=== PATIENT | female | born 1980 | race Caucasian/White ===

== ENCOUNTER 2019-08-11 12:37 | Observation (INO) | payer OTHER, SELFPAY ==
[2019-08-11 12:46] VITALS: BP 131/91; PULSE 89; RESP 18; TEMP 36.3; O2SAT 98; BMI 46.3
--- NOTE | 2019-08-11 13:21 | ED_ITS ---
HPI - GI Bleed General Chief complaint: GI Bleed Stated complaint: nausea,diarrhea,fever,fainting spells Time Seen by Provider: 08/11/19 13:13 Source: patient Mode of arrival: Family Vehicle Limitations: no limitations History of Present Illness HPI Narrative: CC: Rectal GI bleeding HPI: The patient is a 39-year-old female who has a history of chronic abdominal pain secondary to endometriosis and a history of depression. The patient states that last night at 10:00 p.m. she developed abdominal pain that she thought was secondary to endometriosis. At 4:00 a.m. in the morning she became intensely nauseous felt febrile and sweaty. She passed out. She does not know how long she was out. He she developed diarrhea. The diarrhea stopped this morning and then recurred again around noon time at which time she decided to look at it and it was bloody with some stool in tissue in it. She absolutely denies that she is bleeding vaginally. She feels extremely tired weak and lethargic for the last 2 weeks she thought that it was all secondary to her depressions. She wants to sleep. Today she has been having continuous lower abdominal cramps. She denies smoking cigarettes per day pain drinking alcohol or using any drugs. Her last menstrual period was July 31. She has had intermittent fever chills and sweats. She denies a history of Crohn's disease ulcerative colitis irritable bowel syndrome diverticulitis peptic ulcer disease pancreatitis hepatitis, TB and HIV. She states that her pain and discomfort is 5/10 in intensity. She has had intermittent shortness of breath with the abdominal c ramps but no cough and no other chest pain. She denies any melena or any urinary symptoms. She denies any vaginal bleeding or discharge. Related Data Home Medications Medication Instructions Recorded Confirmed metformin 500 mg tablet 500 mg PO QPM tab 02/22/19 08/11/19 Centrum 50 1 tab PO DAILY 08/11/19 08/11/19 lamotrigine 200 mg PO QPM 08/11/19 08/11/19 lysine 1 tab PO DAILY 08/11/19 08/11/19 valsartan-hydrochlorothiazide 1 tab PO DAILY 08/11/19 08/11/19 Previous Rx's Medication Instructions Recorded bupropion HCl 300 mg 24 hr tablet, 300 mg PO QAM #30 tab 04/19/19 extended release duloxetine 60 mg capsule,delayed 60 mg PO DAILY #30 cap 04/19/19 release propranolol 20 mg tablet 20 mg PO BID #60 tab 04/19/19 tizanidine 4 mg capsule 4 mg PO BEDTIME PRN #30 cap 04/19/19 Allergies Allergy/AdvReac Type Severity Reaction Status Date / Time amoxicillin Allergy Intermediate rash Verified 06/12/19 14:08 Review of Systems Review of Systems ROS Unobtainable: All systems reviewed & are unremarkable except as noted in HPI and below Patient History Medical History Anxiety (Acute) Depression (Acute) Endometriosis (Acute) Hypertelorism (Acute) Post traumatic stress disorder (PTSD) (Acute) Social History household members: spouse and friend(s) Smoking Status: Never smoker alcohol intake: never Smoking Status: Never smoker Substance Use Type: does not use Exam Narrative Exam Narrative: PHYSICAL EXAM: CONSTITUTIONAL: Awake, Alert, Oriented, Coherent, Cooperative in moderate distress and tearful.. l. HEAD: AT/NC EENT: PERRL, FROM of eyes, no discharge, no nystagmus Oral mucosa is moist and pink, posterior pharynx is without erythema or exudate. NECK: Supple, no obvious JVD, Trachea is midline without stridor, THORAX: No deformity, retractions, subcutaneous air or crepitice. Chest wall is diffusely tender to palpation LUNGS: Clear with symmetrical breath sounds without respiratory distress HEART: Normal heart tones, regular rhythm and rate without murmur. ABDOMEN: Abdomen is soft diffusely tender in all 4 quadrants without specific point tenderness guarding rebound or rigidity. There are no palpable organomegaly. EXTREMITIES: No edema, cyanosis, deformity or tenderness. SKIN: No rash, bruising, petechiae or purpura. NEURO: Awake, alert, oriented, conversive, cranial nerves II-XII are symmetrical and normal, moves all 4 extremities and is ambulatory Initial Vital Signs Initial Vital Signs: Vital Signs Temperature 97.4 F L 08/11/19 12:46 Pulse Rate 89 08/11/19 12:46 Respiratory Rate 18 08/11/19 12:46 Blood Pressure 131/91 H 08/11/19 12:46 Pulse Oximetry 98 08/11/19 12:46 Course Course Course Narrative: 1451 the patient's white blood count of 13.1. Hemoglobin is 13.9, hematocrit 41.7, coags are normal liver function tests are normal electrolytes are normal. CT scan of the abdomen and pelvis reveals no source of pain within the abdomen or pelvis identified. The patient has a normal appendix. There is no evidence of diverticulitis or adnexal inflammation. There is no peritoneal inflammation nor free air. 1516 the rectal exam reveals that the patient has no gross blood on the outside skin. She has no skin tags no hemorrhoids were palpable. She has mucoid stool that was read and pink and tested grossly positive on Hemoccult. I did not palpate any masses.. Her hemoglobin is stable as well as her vital signs. I will call and discuss the patient with Dr. Anglin general surgery and discussed admitting the patient for a colonoscopy. 1526 I discussed the patient with Dr. Coreas who has agreed to perform a colonoscopy. However she is concerned about the syncopal event and believes the patient should be admitted to the hospitalist to evaluate that and make sure she is stable before proceeding with a colonoscopy. I will discuss the patient with Dr. Rodriguez, hospitalist 1542 I discussed the patient with Dr. Rodriguez will be down to evaluate the p atient in admit the patient. The patient will be admitted observation and if necessary rolled over 4 fall admission. I believe the patient's syncope after reviewing her history is probably a vasovagal syncope secondary to her abdominal pain and cramps. Orders Ordered: ED Orders 08/11/19 13:23 CT abdomen pelvis w con Stat 08/11/19 13:25 Complete Blood Count AUTO DIFF Stat Comprehensive Metabolic Panel Stat Lipase Stat Partial Thromboplastin Time Stat Prothrombin Time INR Stat Troponin I Stat Type and Screen Stat Acetaminophen (Tylenol) 650 mg PO Q6HR PRN PRN Reason: Fever/Mild Pain (1-3) Bupropion HCl (Wellbutrin Xl) 300 mg PO DAILY CHAU Duloxetine HCl (Cymbalta) 60 mg PO DAILY CHAU Sodium Chloride (Normal Saline 0.9%) 1,000 mls @ 100 mls/hr IV CONT CHAU Last Admin: 08/11/19 19:39 Dose: 100 mls/hr Documented by: JULIENNE Influenza Virus Vaccine (Flu Vaccine) 0.5 ml IM .ONCE ONE Stop: 08/12/19 12:01 Lamotrigine (Lamictal) 200 mg PO QPM COUNT INCLUDES THE [facility] Last Admin: 08/11/19 18:13 Dose: 200 mg Documented by: JULIENNE Naloxone HCl (Narcan) 0.2 mg IV Q2MIN PRN PRN Reason: Opiate Reversal Propranolol HCl (Inderal) 20 mg PO BID COUNT INCLUDES THE [facility] Last Admin: 08/11/19 21:20 Dose: 20 mg Documented by: JULIENNE Tizanidine HCl (Zanaflex) 4 mg PO BEDTIME PRN PRN Reason: muscle spasticity Discontinued Medications Sodium Chloride (Normal Saline 0.9%) 1,000 mls @ 1,000 mls/hr IV BOLUS ONE Stop: 08/11/19 17:56 Last Admin: 08/11/19 18:09 Dose: 1,000 mls/hr Documented by: JULIENNE Influenza Virus Vaccine (Flu Vaccine) 0.5 ml IM .ONCE ONE Stop: 08/11/19 17:52 Morphine Sulfate (Morphine Sulfate) 4 mg IV NOW ONE Stop: 08/11/19 13:24 Last Admin: 08/11/19 13:45 Dose: Not Given Documented by: GM Ondansetron HCl (Zofran) 4 mg IV NOW ONE Stop: 08/11/19 13:24 Last Admin: 08/11/19 13:45 Dose: 4 mg Documented by: GM Vital Signs Vital signs: Vital Signs - 8 hr 08/11/19 16:20 Pulse Rate 68 Respiratory Rate 18 Blood Pressure [Left Arm] 121/74 MDM - GI Bleed Lab Data Attestation: I reviewed the patient's lab results. Result diagrams: 08/11/19 13:25 08/11/19 13:25 Labs: Lab Results 08/11/19 08/11/19 08/11/19 Range/Units 13:00 13:25 13:25 WBC 13.1 H (4.5-11.0) X10^3/uL RBC 4.80 (4.0-5.2) X10^6/uL Hgb 13.9 (12.0-16.0) g/dL Hct 41.7 (36-46) % MCV 86.8 (80-100) fL MCH 28.9 (26-34) PG MCHC 33.3 (30-36) % RDW 13.0 (11.6-14.8) % Plt Count 407 H (150-400) X10^3/uL Neut % (Auto) 82.3 H (50-75) % Lymph % (Auto) 11.6 L (25-40) % [place] % (Auto) 5.4 (3-14) % Eos % (Auto) 0.3 L (2-4) % Baso % (Auto) 0.4 (0-2) % Neut # (Auto) 05291 H (8396-2077) /uL Lymph # (Auto) 1500 (4263-9176) /uL [place] # (Auto) 700 (0-900) /uL Eos # (Auto) 0 (0-450) /uL Baso # (Auto) 100 (0-100) /uL PT 11.9 (10.1-12.7) SECONDS INR 1.0 (0.9-1.3) APTT 32 (26.4-36.2) SECONDS Sodium (137-145) mmol/L Potassium (3.4-5.1) mmol/L Chloride (98-107) mmol/L Carbon Dioxide (22-32) mmol/L BUN (7-17) mg/dL Creatinine (0.52-1.04) mg/dL Estimated GFR (>60) mL/min BUN/Creatinine Ratio (6-22) Glucose (70-100) mg/dL Calcium (8.4-10.2) mg/dL Total Bilirubin (0.2-1.3) mg/dL AST (14-36) IU/L ALT (<35) IU/L Alkaline Phosphatase (38-126) U/L Troponin I (0.01-0.034) ng/mL Total Protein (6.3-8.2) g/dL Albumin (3.5-5.0) g/dL Globulin (1.7-4.1) g/dL Albumin/Globulin Ratio (1.0-2.8) Lipase (23-300) U/L Urine RBC 0-1/hpf (0-5/HPF) Urine WBC 1-5/hpf (0-5/HPF) Ur Squamous Epith Cells 1-5 /hpf (0-5/HPF) Ur Transition Epith Cell 1-5/hpf (0-5/HPF) Amorphous Sediment 1+ Urine Bacteria Few (2-10) H (None) Hyaline Casts 10-30/lpf (None) Ur Culture Indicated? Specimen cultured Blood Type Antibody Screen 08/11/19 08/11/19 08/11/19 Range/Units 13:25 13:25 13:25 WBC (4.5-11.0) X10^3/uL RBC (4.0-5.2) X10^6/uL Hgb (12.0-16.0) g/dL Hct (36-46) % MCV (80-100) fL MCH (26-34) PG MCHC (30-36) % RDW (11.6-14.8) % Plt Count (150-400) X10^3/uL Neut % (Auto) (50-75) % Lymph % (Auto) (25-40) % [place] % (Auto) (3-14) % Eos % (Auto) (2-4) % Baso % (Auto) (0-2) % Neut # (Auto) (5979-9870) /uL Lymph # (Auto) (8980-9970) /uL [place] # (Auto) (0-900) /uL Eos # (Auto) (0-450) /uL Baso # (Auto) (0-100) /uL PT (10.1-12.7) SECONDS INR (0.9-1.3) APTT (26.4-36.2) SECONDS Sodium 138 (137-145) mmol/L Potassium 3.7 (3.4-5.1) mmol/L Chloride 99 (98-107) mmol/L Carbon Dioxide 24 (22-32) mmol/L BUN 16 (7-17) mg/dL Creatinine 0.70 (0.52-1.04) mg/dL Estimated GFR > 60.0 (>60) mL/min BUN/Creatinine Ratio 22.9 H (6-22) Glucose 143 H (70-100) mg/dL Calcium 9.9 (8.4-10.2) mg/dL Total Bilirubin 0.6 (0.2-1.3) mg/dL AST 24 (14-36) IU/L ALT 19 (<35) IU/L Alkaline Phosphatase 67 (38-126) U/L Troponin I < 0.012 (0.01-0.034) ng/mL Total Protein 8.4 H (6.3-8.2) g/dL Albumin 5.1 H (3.5-5.0) g/dL Globulin 3.3 (1.7-4.1) g/dL Albumin/Globulin Ratio 1.5 (1.0-2.8) Lipase 51 (23-300) U/L Urine RBC (0-5/HPF) Urine WBC (0-5/HPF) Ur Squamous Epith Cells (0-5/HPF) Ur Transition Epith Cell (0-5/HPF) Amorphous Sediment Urine Bacteria (None) Hyaline Casts (None) Ur Culture Indicated? Blood Type A Positive Antibody Screen Negative Point of Care Testing Test Results Negative Urine Dip Bedside Urine Glucose Negative Bedside Urine Bilirubin ++ 2 Bedside Urine Ketone + 15 Urine Specific [place] 1.030 Bedside Urine Occult Blood - Negative Bedside Urine pH 6.0 Bedside Urine Protein ++ 100 Bedside Urine Urobilinogen +/- 1mg Bedside Urine Nitrite + Positive Bedside Urine Leukocytes + 70 Esterase ECG Data Attestation: I personally reviewed and interpreted this ECG as follows: Interpretation: Patient's EKG obtained on August 11 at 12:5 6:38 a.m. reveals a normal sinus rhythm with a ventricular rate of 79. Intervals are normal. QRS is slightly prolonged at 101 milliseconds. [place] is normal. The patient has an occasional PVC. There are no Q-waves visible. The patient has nonspecific ST segment changes. T-waves are flat in lead III. T-waves are inverted in V1. Otherwise EKG appears normal. There are no ST or T-wave changes to suggest ischemia or injury. Discharge Plan Departure Patient Disposition: Admitted as Observation Clinical Impression: Acute lower GI bleeding Syncope Qualifiers: Syncope type: unspecified Qualified Code(s): R55 - Syncope and collapse Discharge Date/Time: 08/11/19 17:34 Admit Date/Time: 08/11/19 16:29 Admit Provider: Everett Rodriguez
--- NOTE | 2019-08-11 13:23 | DI.CT.S_ITS ---
PROCEDURE: CT ABDOMEN PELVIS W CON INDICATIONS: diffuse abdominal pain and cramps with bleeding and diarrhea TECHNIQUE: After the administration of intravenous contrast, 5 mm thick sections acquired from the diaphragm to the symphysis. 5 mm coronal and sagittal reformats were acquired. For radiation dose reduction, the following was used: automated exposure control, adjustment of mA and/or kV according to patient size. COMPARISON: None. FINDINGS: Image quality: Excellent. ABDOMEN: Lung bases: Lung bases are clear. Heart size is normal. Solid organs: Liver is normal in size and enhancement. Gallbladder appears normal. Biliary system is non dilated. Pancreas enhances normally. Spleen is normal in size and enhancement. No adrenal nodules. Kidneys demonstrate normal size and enhancement, without hydronephrosis. Peritoneum and bowel: Bowel loops demonstrate normal wall thickness and caliber. No free fluid or air. Nodes and vessels: No retroperitoneal or mesenteric adenopathy by size criteria. Aorta and inferior vena cava are normal in size. Miscellaneous: No ventral hernias. PELVIS: Genitourinary: Bladder wall thickness is normal. Miscellaneous: No inguinal hernias or adenopathy. A normal appendix is found at the right lower quadrant. Bones: No suspicious bony lesions. No vertebral body compression fractures. IMPRESSION: Source of pain within the pelvis is not identified. Normal appendix found. No sign of diverticulitis or adnexal inflammation. Throughout the abdomen and pelvis no peritoneal inflammation or free fluid is found Dictated by: Juaquin Mclain M.D. on 08/11/2019 at 14:36 Approved by: Juaquin Mclain M.D. on 08/11/2019 at 14:36
[2019-08-11 13:35] LABS: Add Manual Diff / Slide Review NO; Basophils Absolute Auto 100 /uL (0-100); Basophils Percent Auto 0.4 % (0-2); Eosinophils Absolute Auto 0 /uL (0-450); Eosinophils Percent Auto 0.3 % (2-4); Hematocrit 41.7 % (36-46); Hemoglobin 13.9 g/dL (12.0-16.0); Lymphocytes Absolute Auto 1500 /uL (1100-4500); Lymphocytes Percent Auto 11.6 % (25-40); Mean Corpuscular HGB Conc 33.3 % (30-36); Mean Corpuscular Hemoglobin 28.9 PG (26-34); Mean Corpuscular Volume 86.8 fL (80-100); Monocytes Absolute Auto 700 /uL (0-900); Monocytes Percent Auto 5.4 % (3-14); Neutrophils Absolute Auto 10800 /uL (1500-7000); Neutrophils Percent Auto 82.3 % (50-75); Platelet Count 407 X10^3/uL (150-400); White Blood Cell Count 13.1 X10^3/uL (4.5-11.0)
[2019-08-11 13:42] LABS: Prothrombin Time 11.9 SECONDS (10.1-12.7)
[2019-08-11 13:45] LABS: PTT Partial Thromboplastin Tim 32 SECONDS (26.4-36.2)
[2019-08-11] MEDS: ONDANSETRON 4 MG/2 ML INJ IV (13:45)
[2019-08-11] MEDS: MORPHINE 4 MG/ML INJ (13:45)
[2019-08-11 13:47] LABS: Alanine Aminotransferase 19 IU/L (<35); Albumin 5.1 g/dL (3.5-5.0); Albumin Globulin Ratio 1.5 (1.0-2.8); Alkaline Phosphatase 67 U/L (38-126); Aspartate Aminotransferase 24 IU/L (14-36); BUN Creatinine Ratio 22.9 (6-22); Bilirubin Total 0.6 mg/dL (0.2-1.3); Blood Urea Nitrogen 16 mg/dL (7-17); Calcium 9.9 mg/dL (8.4-10.2); Carbon Dioxide 24 mmol/L (22-32); Chloride 99 mmol/L (98-107); Estimated Glomerular Filt Rate > 60.0 mL/min (>60); Globulin 3.3 g/dL (1.7-4.1); Glucose 143 mg/dL (70-100); HEMOLYSIS < 15 (0-50); Lipase 51 U/L (23-300); Potassium 3.7 mmol/L (3.4-5.1); Sodium 138 mmol/L (137-145); Total Protein 8.4 g/dL (6.3-8.2)
[2019-08-11 14:00] VITALS: BP 136/79; PULSE 68; RESP 18; O2SAT 99
[2019-08-11 14:05] LABS: Amorphous Sediment Urine 1+; Bacteria Urine Few (2-10); Culture Indicated Urine Specimen Cultured; Hyaline Casts Urine 10-30/LPF; RBC Urine 0-1/HPF (0-5/HPF); Squamous Epithelial Cell Urine 1-5 /HPF (0-5/HPF); Transitional Epi Cells Urine 1-5/HPF (0-5/HPF); WBC Urine 1-5/HPF (0-5/HPF)
[2019-08-11 16:17] LABS: Troponin I < 0.012 ng/mL (0.01-0.034)
[2019-08-11 16:20] VITALS: BP 121/74; PULSE 68; RESP 18
--- NOTE | 2019-08-11 17:01 | PM.HP.1 ---
History of Present Illness History of Present Illness Date Patient Seen: 08/11/19 Time Patient Seen: 16:00 Chief complaint: nausea,diarrhea,fever,fainting spells Narrative: Patient is a 39-year-old female with history of depression, anxiety who presented to emergency department after syncopal episode associated with diarrhea and rectal bleeding. Patient states around 10:00 p.m. last night she started having abdominal pain which she attributed to her usual endometriosis discomfort. Then at 4:00 a.m. she awoke with diarrhea and increase in abdominal pain. She also felt feverish, sweaty and dizzy. She felt like she was almost going to fall over while sitting on the toilet. She went to the hallway to get some Pepto-Bismol and fainted. She found herself on the floor and was briefly disoriented and did feel extremely dizzy when tried to stand up. She then went to bed and woke up around 12:00 p.m. again with abdominal pain and diarrhea. This time she looked in the toilet and noticed that it looked very bloody and mucousy which she describes similar as to what she would get with her periods. She has also had severe nausea without vomiting. She reports history of hemorrhoids and irritable bowel syndrome. She has family history of colon polyps in mom and maybe dad. No family history of colon CA. Review of system includes chronic fatigue symptoms but more tired in the last 2 weeks, chronic dizziness, headaches. [facility] and [facility]. On ER she was afebrile, normotensive and not tachycardic. WBC 13.1 mildly elevated, hemoglobin 13.9, hematocrit 41.7, platelets 407. Normal lytes, BUN and creatinine. A CT scan of abdomen and pelvis showed no abnormalities. Dr. Connolly was called from the ER and recommended patient admitted for possible colonoscopy. Patient denies antibiotic use in the past few months and has had no sick contacts. Patient History Medical History (Updated 08/11/19 @ 17:09 by Everett Rodriguez MD) Anxiety (Acute) Depression (Acute) Endometriosis (Acute) Hypertelorism (Acute) Post traumatic stress disorder (PTSD) (Acute) Family & Social History Safety & Behavioral: Feels Safe in Current Yes Environment Been Physically Hurt or No Threatened By a Person Tobacco & Substance use: Smoking Status Never smoker Substance Use Type does not use Meds Home Medications and Allergies Home Medications Medication Instructions Recorded Confirmed Type metformin 500 mg tablet 500 mg PO QPM tab 02/22/19 08/11/19 History bupropion HCl 300 mg 24 hr tablet, 300 mg PO QAM #30 tab 04/19/19 08/11/19 Rx extended release duloxetine 60 mg capsule,delayed 60 mg PO DAILY #30 cap 04/19/19 08/11/19 Rx release propranolol 20 mg tablet 20 mg PO BID #60 tab 04/19/19 08/11/19 Rx tizanidine 4 mg capsule 4 mg PO BEDTIME PRN #30 cap 04/19/19 08/11/19 Rx Centrum 50 1 tab PO DAILY 08/11/19 08/11/19 History lamotrigine 200 mg PO QPM 08/11/19 08/11/19 History lysine 1 tab PO DAILY 08/11/19 08/11/19 History valsartan-hydrochlorothiazide 1 tab PO DAILY 08/11/19 08/11/19 History Allergies Allergy/AdvReac Type Severity Reaction Status Date / Time amoxicillin Allergy Intermediate rash Verified 06/12/19 14:08 Review of Systems Review of Systems ROS: Yes All systems reviewed with the patient and are negative except as otherwise documented Exam Vital Signs (past 8 hours): - 08/11/19 12:46 08/11/19 14:00 08/11/19 16:20 Temperature 97.4 F L Pulse Rate 89 68 68 Respiratory Rate 18 18 18 Blood Pressure 131/91 H Blood Pressure [Left Arm] 136/79 121/74 Pulse Oximetry 98 99 Oxygen Delivery Method Room Air Narrative Exam Narrative: GENERAL: Alert pleasant female cooperative and does not appear in acute distress. HEENT: Pupils equal and reactive, conjunctiva pink Dry mucosa Neck: Supple no lymphadenopathy Lungs: Clear to auscultation Heart: Normal S1 and S2, regular rate and rhythm, no murmur Abdomen: Obese, bowel sounds present, soft and tender across lower abdomen Extremities: No edema Neurological: Fully oriented, nonfocal Skin: Warm, dry, no rash Objective Labs Result Diagrams: 08/11/19 13:25 08/11/19 13:25 Labs: Laboratory Results - last 24 hr 08/11/19 08/11/19 08/11/19 13:00 13:25 13:25 WBC 13.1 H RBC 4.80 Hgb 13.9 Hct 41.7 MCV 86.8 MCH 28.9 MCHC 33.3 RDW 13.0 Plt Count 407 H Neut % (Auto) 82.3 H Lymph % (Auto) 11.6 L [place] % (Auto) 5.4 Eos % (Auto) 0.3 L Baso % (Auto) 0.4 Neut # (Auto) 90828 H Lymph # (Auto) 1500 [place] # (Auto) 700 Eos # (Auto) 0 Baso # (Auto) 100 PT 11.9 INR 1.0 APTT 32 Sodium Potassium Chloride Carbon Dioxide BUN Creatinine Estimated GFR BUN/Creatinine Ratio Glucose Calcium Total Bilirubin AST ALT Alkaline Phosphatase Troponin I Total Protein Albumin Globulin Albumin/Globulin Ratio Lipase Urine RBC 0-1/hpf Urine WBC 1-5/hpf Ur Squamous Epith Cells 1-5 /hpf Ur Transition Epith Cell 1-5/hpf Amorphous Sediment 1+ Urine Bacteria Few (2-10) H Hyaline Casts 10-30/lpf Ur Culture Indicated? Specimen cultured Blood Type Antibody Screen 08/11/19 08/11/19 08/11/19 13:25 13:25 13:25 WBC RBC Hgb Hct MCV MCH MCHC RDW Plt Count Neut % (Auto) Lymph % (Auto) [place] % (Auto) Eos % (Auto) Baso % (Auto) Neut # (Auto) Lymph # (Auto) [place] # (Auto) Eos # (Auto) Baso # (Auto) PT INR APTT Sodium 138 Potassium 3.7 Chloride 99 Carbon Dioxide 24 BUN 16 Creatinine 0.70 Estimated GFR > 60.0 BUN/Creatinine Ratio 22.9 H Glucose 143 H Calcium 9.9 Total Bilirubin 0.6 AST 24 ALT 19 Alkaline Phosphatase 67 Troponin I < 0.012 Total Protein 8.4 H Albumin 5.1 H Globulin 3.3 Albumin/Globulin Ratio 1.5 Lipase 51 Urine RBC Urine WBC Ur Squamous Epith Cells Ur Transition Epith Cell Amorphous Sediment Urine Bacteria Hyaline Casts Ur Culture Indicated? Blood Type A Positive Antibody Screen Negative Assessment & Plan Assessment & Plan narrative: This is a 39-year-old female who presents with acute bloody mucousy diarrhea and episode of syncope. 1. Bloody diarrhea, present on admission -acute presentation most likely infectious, less likely initial presentation of inflammatory bowel disease, AVM, diverticulosis -labs significant for mild leukocytosis, normal H&H, CT scan unremarkable -obtain GI panel film array, stool C diff PCR, stool culture -clear liquid diet as tolerated -IV hydration, NS 1000 mL bolus then 100 mL per hours continuous -IV Zofran 4 mg q.4 hours as needed nausea/vomiting -appreciate surgical consult by Dr. Connolly, we discussed case and agree this is most likely acute infectious and colonoscopy not needed at this time 2. Syncope -likely vasovagal or orthostatic in nature -check orthostatics now and q.a.m. 3. Hypertension -normotensive, awaiting orthostatics -hold patient's valsartan HCT due to acute illness and syncope -also hold metformin, I need to check with patient if it is being given for PCOS or diabetes 4. Behavioral health -continue patient's psychiatric medications Patient is admitted to observation services with expectation of less than 2 midnight stay.
--- NOTE | 2019-08-11 17:39 | P.CONS_ITS ---
History of Present Illness Consult details Date Patient Seen: 08/11/19 Time Patient Seen: 17:39 Chief complaint: nausea,diarrhea,fever,fainting spells Reason for consult: rectal bleeding, abdominal pain Requesting provider: Oren Sanchez Narrative: This is a 39-year-old woman with h/o morbid obesity BMI 46.3, depression, anxiety, fibromyalgia, and IBS. She has chronic dizziness, fatigue and nausea which she says has been worse in the past two weeks. She says she doesn't get out of bed very much. She came into the ER today with c/o abdominal pain that started last night around 10PM, associated with diarrhea, syncope, and a bloody bowel movement. She says that around 10:00 p.m. she started having abdominal pain which she attributed to her usual endometriosis discomfort. Then at 4:00 a.m. she awoke with diarrhea and increased abdominal pain. At that point she felt feverish, sweaty and dizzy. She felt like she was almost going to fall over while sitting on the toilet. She went to the hallway to get some Pepto-Bismol and fainted. She found herself on the floor. She say she doesn't know how long she was down. When she awoke she was briefly disoriented and did feel extremely dizzy when tried to stand up. She then went to bed and woke up around 12:00 p.m. again with abdominal pain and diarrhea. This time she looked in the toilet and noticed that it looked very bloody and mucousy which she carrie cribes similar as to what she would get with her periods. She has also had severe nausea without vomiting. She reports history of hemorrhoids and irritable bowel syndrome. She has family history of colon polyps in mom and maybe dad. No family history of colon CA. She had a CT scan in the ER that was essentially normal in terms of the colon. No signs of edema or colitis. She has a low-grade white count 13.1. ROS: Review of system includes chronic fatigue symptoms but more tired in the last 2 weeks, chronic dizziness, headaches. [facility], anxiety and PTSD. Thirteen system review is otherwise negative other than as mentioned below and in HPI. PE: GENERAL: Alert, comfortable. Morbidly obese. Appears stated age. Answers questions promptly and appropriately. Vital signs noted. HENT: Normocephalic, atraumatic. Hearing intact. Oral mucosa is pink and moist. EYES: Conjunctiva pink, sclera white, no periorbital swelling. CARDIOVASCULAR: Regular rate. No pedal edema. RESPIRATORY: Non-tachypneic, breathing comfortably on room air. GASTROINTESTINAL: Abdomen soft, obese, non-distended, tender to palpation in bilateral lower quadrants, no peritoneal signs Perianal: Skin irritation consistent with diarrhea; no gross blood, no stool staining FRANK: No gross blood, no tenderness, no masses GENITALURINARY: No flank tenderness. MUSCULOSKELETAL: Equal tone and mass bilaterally. SKIN: Warm, dry, soft, appropriate color for ethnicity. No other lesions, rashes, or wounds. NEURO: Alert and Oriented X 3. No gross sensory deficits, or cognitive issues. PSYCH: Appropriate affect and mood. Meds Home Medications and Allergies Home Medications Medication Instructions Recorded Confirmed Type metformin 500 mg tablet 500 mg PO QPM tab 02/22/19 08/11/19 History bupropion HCl 300 mg 24 hr tablet, 300 mg PO QAM #30 tab 04/19/19 08/11/19 Rx extended release duloxetine 60 mg capsule,delayed 60 mg PO DAILY #30 cap 04/19/19 08/11/19 Rx release propranolol 20 mg tablet 20 mg PO BID #60 tab 04/19/19 08/11/19 Rx tizanidine 4 mg capsule 4 mg PO BEDTIME PRN #30 cap 04/19/19 08/11/19 Rx Centrum 50 1 tab PO DAILY 08/11/19 08/11/19 History lamotrigine 200 mg PO QPM 08/11/19 08/11/19 History lysine 1 tab PO DAILY 08/11/19 08/11/19 History valsartan-hydrochlorothiazide 1 tab PO DAILY 08/11/19 08/11/19 History Allergies Allergy/AdvReac Type Severity Reaction Status Date / Time amoxicillin Allergy Intermediate rash Verified 06/12/19 14:08 Exam Vital Signs (past 8 hours): - 08/11/19 12:46 08/11/19 14:00 08/11/19 16:20 Temperature 97.4 F L Pulse Rate 89 68 68 Respiratory Rate 18 18 18 Blood Pressure 131/91 H Blood Pressure [Left Arm] 136/79 121/74 Pulse Oximetry 98 99 Oxygen Delivery Method Room Air Objective Labs Result Diagrams: 08/11/19 13:25 08/11/19 13:25 Labs: Laboratory Results - last 24 hr 08/11/19 08/11/19 08/11/19 13:00 13:25 13:25 WBC 13.1 H RBC 4.80 Hgb 13.9 Hct 41.7 MCV 86.8 MCH 28.9 MCHC 33.3 RDW 13.0 Plt Count 407 H Neut % (Auto) 82.3 H Lymph % (Auto) 11.6 L [place] % (Auto) 5.4 Eos % (Auto) 0.3 L Baso % (Auto) 0.4 Neut # (Auto) 79529 H Lymph # (Auto) 1500 [place] # (Auto) 700 Eos # (Auto) 0 Baso # (Auto) 100 PT 11.9 INR 1.0 APTT 32 Sodium Potassium Chloride Carbon Dioxide BUN Creatinine Estimated GFR BUN/Creatinine Ratio Glucose Calcium Total Bilirubin AST ALT Alkaline Phosphatase Troponin I Total Protein Albumin Globulin Albumin/Globulin Ratio Lipase Urine RBC 0-1/hpf Urine WBC 1-5/hpf Ur Squamous Epith Cells 1-5 /hpf Ur Transition Epith Cell 1-5/hpf Amorphous Sediment 1+ Urine Bacteria Few (2-10) H Hyaline Casts 10-30/lpf Ur Culture Indicated? Specimen cultured Blood Type Antibody Screen 08/11/19 08/11/19 08/11/19 13:25 13:25 13:25 WBC RBC Hgb Hct MCV MCH MCHC RDW Plt Count Neut % (Auto) Lymph % (Auto) [place] % (Auto) Eos % (Auto) Baso % (Auto) Neut # (Auto) Lymph # (Auto) [place] # (Auto) Eos # (Auto) Baso # (Auto) PT INR APTT Sodium 138 Potassium 3.7 Chloride 99 Carbon Dioxide 24 BUN 16 Creatinine 0.70 Estimated GFR > 60.0 BUN/Creatinine Ratio 22.9 H Glucose 143 H Calcium 9.9 Total Bilirubin 0.6 AST 24 ALT 19 Alkaline Phosphatase 67 Troponin I < 0.012 Total Protein 8.4 H Albumin 5.1 H Globulin 3.3 Albumin/Globulin Ratio 1.5 Lipase 51 Urine RBC Urine WBC Ur Squamous Epith Cells Ur Transition Epith Cell Amorphous Sediment Urine Bacteria Hyaline Casts Ur Culture Indicated? Blood Type A Positive Antibody Screen Negative Assessment & Plan Assessment and plan (1) Syncope: Qualifiers: Syncope type: unspecified Qualified Code(s): R55 - Syncope and collapse Current visit: Yes Status: Acute (2) Acute lower GI bleeding: Current visit: Yes Status: Acute (3) Morbid obesity with BMI of 40.0-44.9, adult: Current visit: Yes Status: Acute (4) IBS (irritable bowel syndrome): Current visit: Yes Status: Acute (5) Acute abdominal pain: Current visit: Yes Status: Acute (6) Diarrhea: Current visit: Yes Status: Acute Assessment & Plan narrative: This is a 39-year-old woman with longstanding fibromyalgia, fatigue, dizziness, nausea, and IBS. Last night she started having severe abdominal pain associated with syncope, diarrhea, and rectal bleed ing. Her hemoglobin is 14, her CT scan is unremarkable, and there is no gross blood on her rectal exam. She has not had another bloody bowel movement since the 1 that she had 6 hours ago. Is my thought that she is probably not bleeding significantly given her hemoglobin, and the lack of ongoing rectal bleeding. It is possible in the setting of a GI bug causing diarrhea, she had some irritation of internal hemorrhoids causing a self-limited bleed. Her overall picture is not consistent with inflammatory bowel disease, ischemia, or infectious colitis. She is going to be admitted to the medicine service. I spoke with Dr. Rodriguez, and he will contact us if he feels that she is able to tolerate a bowel prep and if she is an appropriate candidate for an inpatient colonoscopy. My thought is she probably needs conservative management of her symptoms, and consideration for an outpatient colonoscopy once she is feeling better. 45 minutes were spent face to face with the patient. More than 50% of the time was spent in counseling and co-ordination of care regarding her medical history, symptoms, exam findings, and expected hospital course, and follow-up. An additional 45 minutes were spent reviewing the patient's chart, discussing her case with Dr. Sanchez and Dr. Rodriguez. At this point we are not actively following the patient, but please call if an inpatient colonoscopy is indicated. Time Spent With Patient Time with patient: Greater than 35 minutes
[2019-08-11 17:41] VITALS: BMI 46.3
[2019-08-11 18:00] VITALS: BP 119/92; PULSE 71; RESP 20; TEMP 36.7; O2SAT 95
[2019-08-11] MEDS: SODIUM CHLORIDE 0.9% 1,000 ML 1000 ML IV (18:09)
[2019-08-11] MEDS: lamoTRIgine 100 MG TABLET 200 MG PO (18:13)
--- NOTE | 2019-08-11 18:35 | PC.NURSE ---
Addendum entered by Sarah Felix R.N. 08/11/19 22:50: Pt states preference for influenza vaccine prior to discharge. In house pharmacist was made aware. No stools this evening. Addendum entered by Sarah Felix R.N. 08/11/19 20:04: Pt standby assistance to commode to void. No stool. Admits to some lightheadedness when up but states this is nothing new or unusual for pt. Able to manage own toileting. BL calf scd's in place. Reports abdomen is tender, but taking clear liquids without difficulty. Spouse at bedside. Original Note: Pt to room 214 from [facility] awake, alert, conversant. Able to transfer from wheelchair to bed. Accompanied by spouse and numerous members of quaker family. Pt states abdominal pain 2/10 at this time. States feels able to rest. Clear liquids provided as ordered and normal saline bolus infusing as ordered to right ac site without difficulty.
[2019-08-11 18:45] VITALS: BP 108/67; BP 110/67; BP 114/72; PULSE 66; PULSE 81; PULSE 89
[2019-08-11] MEDS: SODIUM CHLORIDE 0.9% 1,000 ML 100 ML IV (19:39)
[2019-08-11] MEDS: PROPRANOLOL 10 MG TABLET 20 MG PO (21:20)
[2019-08-12 00:20] VITALS: BP 119/70; PULSE 63; RESP 16; TEMP 36.7; O2SAT 96
[2019-08-12 02:50] LABS: Adenovirus F 40/41 Not Detected (Not Detect); Astrovirus Not Detected (Not Detect); Campylobacter Not Detected (Not Detect); Clostridium difficile toxin AB Not Detected (Not Detect); Cryptosporidium Not Detected (Not Detect); Cyclospora cayetanensis Not Detected (Not Detect); Entamoeba histolytica Not Detected (Not Detect); Enteroaggregative E.coli Not Detected (Not Detect); Enteropathogenic E.coli Not Detected (Not Detect); Enterotoxigenic E.coli It/st Not Detected (Not Detect); Giardia lamblia Not Detected (Not Detect); Norovirus GI/GII Not Detected (Not Detect); Plesiomonsa shigelloides Not Detected (Not Detect); Rotavirus A Not Detected (Not Detect); Salmonella Not Detected (Not Detect); Sapovirus Not Detected (Not Detect); Shiga-like toxin-prod E.coli Not Detected (Not Detect); Shigella/Enteroinvasive E.coli Not Detected (Not Detect); Vibrio Not Detected (Not Detect); Vibrio cholerae Not Detected (Not Detect); Yersinia enterocolitica Not Detected (Not Detect)
[2019-08-12 04:30] VITALS: BP 118/70; BP 125/68; BP 139/88; PULSE 67; PULSE 72; PULSE 81; RESP 16; TEMP 36.8; O2SAT 96
[2019-08-12] MEDS: SODIUM CHLORIDE 0.9% 1,000 ML 100 ML IV (05:25)
[2019-08-12 05:38] LABS: Add Manual Diff / Slide Review NO; Basophils Absolute Auto 0 /uL (0-100); Basophils Percent Auto 0.4 % (0-2); Eosinophils Absolute Auto 100 /uL (0-450); Eosinophils Percent Auto 1.2 % (2-4); Hematocrit 36.4 % (36-46); Hemoglobin 12.3 g/dL (12.0-16.0); Lymphocytes Absolute Auto 2800 /uL (1100-4500); Lymphocytes Percent Auto 25.9 % (25-40); Mean Corpuscular HGB Conc 33.9 % (30-36); Mean Corpuscular Hemoglobin 29.4 PG (26-34); Mean Corpuscular Volume 86.6 fL (80-100); Monocytes Absolute Auto 900 /uL (0-900); Monocytes Percent Auto 8.3 % (3-14); Neutrophils Absolute Auto 6900 /uL (1500-7000); Neutrophils Percent Auto 64.2 % (50-75); Platelet Count 327 X10^3/uL (150-400); Red Cell Distribution Width 13.4 % (11.6-14.8); White Blood Cell Count 10.8 X10^3/uL (4.5-11.0)
[2019-08-12 05:44] LABS: BUN Creatinine Ratio 11.4 (6-22); Blood Urea Nitrogen 8 mg/dL (7-17); Calcium 8.9 mg/dL (8.4-10.2); Carbon Dioxide 30 mmol/L (22-32); Chloride 100 mmol/L (98-107); Estimated Glomerular Filt Rate > 60.0 mL/min (>60); Glucose 108 mg/dL (70-100); HEMOLYSIS < 15 (0-50); Potassium 3.8 mmol/L (3.4-5.1); Sodium 137 mmol/L (137-145)
[2019-08-12 08:00] VITALS: BP 137/82; PULSE 64; RESP 14; TEMP 36.6; O2SAT 95
[2019-08-12] MEDS: buPROPion XL 150 MG TAB 300 MG PO (09:23)
[2019-08-12] MEDS: PROPRANOLOL 10 MG TABLET 20 MG PO (09:23)
[2019-08-12] MEDS: DULOXETINE 30 MG CAPSULE 60 MG PO (09:23)
[2019-08-12 10:28] VITALS: BP 132/66; BP 134/68; BP 143/74; PULSE 67; PULSE 73; PULSE 74
--- NOTE | 2019-08-12 12:59 | P.DS_ITS ---
History of Present Illness History of Present Illness Chief complaint: nausea,diarrhea,fever,fainting spells Narrative: Patient is a 39-year-old female with history of depression, anxiety who presented to emergency department after syncopal episode associated with diarrhea and rectal bleeding. Patient states around 10:00 p.m. last night she started having abdominal pain which she attributed to her usual endometriosis discomfort. Then at 4:00 a.m. she awoke with diarrhea and increase in abdominal pain. She also felt feverish, sweaty and dizzy. She felt like she was almost going to fall over while sitting on the toilet. She went to the hallway to get some Pepto-Bismol and fainted. She found herself on the floor and was briefly disoriented and did feel extremely dizzy when tried to stand up. She then went to bed and woke up around 12:00 p.m. again with abdominal pain and diarrhea. This time she looked in the toilet and noticed that it looked very bloody and mucousy which she describes similar as to what she would get with her periods. She has also had severe nausea without vomiting. She reports history of hemorrhoids and irritable bowel syndrome. She has family history of colon polyps in mom and maybe dad. No family history of colon CA. Review of system includes chronic fatigue symptoms but more tired in the last 2 weeks, chronic dizziness, headaches. [facility], [facility] and [facility]. On ER she was afebrile, normotensive and not tachycardic. WBC 13.1 mildly elevated, hemoglobin 13.9, hematocrit 41.7, platelets 407. Normal lytes, BUN and creatinine. A CT scan of abdomen and pelvis showed no abnormalities. Dr. Connolly was called from the ER and recommended patient admitted for possible colonoscopy. Patient denies antibiotic use in the past few months and has had no sick contacts. Discharge Providers Provider Date of admission: 08/11/19 16:29 Discharge Date: 08/12/19 Discharge provider: Everett Rodriguez MD Summary Hospital Course Discharge Diagnosis: 1. Acute hemorrhagic gastroenteritis, likely infectious 2. Vasovagal syncope Hospital Course: Patient admitted after syncope associated with acute onset of bloody diarrhea. She was not orthostatic. This syncope is very likely vasovagal associated with abdominal cramping and diarrhea. She is still passing small amounts of blood per rectum but last hemoglobin this morning 12.3 is only slightly down from admission. She is not orthostatic and she remains afebrile. This is still most likely infectious diarrhea causing lower GI bleed verses acute onset of IBD. She did have abdomen pelvis CT scan which did not show any thickening in her bowels. Patient is discharged home in stable condition. She will follow-up with PCP. She may need colonoscopy if bloody diarrhea is persistent beyond a few weeks. Status at Discharge Cognitive/behavioral status at discharge: oriented Functional status at discharge: independent ambulation Overall status at discharge: patient is progressing back to baseline Exam Vital Signs (past 8 hours): - 08/12/19 08:00 08/12/19 10:28 Temperature 97.9 F Pulse Rate 64 Pulse Rate [Orthostatic Lying] 67 Pulse Rate [Orthostatic Sitting] 73 Pulse Rate [Orthostatic Standing] 74 Respiratory Rate 14 Blood Pressure 137/82 Blood Pressure [Orthostatic Lying] 132/66 Blood Pressure [Orthostatic Sitting] 134/68 Blood Pressure [Orthostatic Standing] 143/74 H Pulse Oximetry 95 Oxygen Delivery Method Room Air Oxygen Flow Rate 0 Objective Labs Result Diagrams: 08/12/19 05:20 08/12/19 05:20 Labs: Laboratory Results - last 24 hr 08/11/19 08/11/19 08/11/19 13:00 13:25 13:25 WBC 13.1 H RBC 4.80 Hgb 13.9 Hct 41.7 MCV 86.8 MCH 28.9 MCHC 33.3 RDW 13.0 Plt Count 407 H Neut % (Auto) 82.3 H Lymph % (Auto) 11.6 L [place] % (Auto) 5.4 Eos % (Auto) 0.3 L Baso % (Auto) 0.4 Neut # (Auto) 41842 H Lymph # (Auto) 1500 [place] # (Auto) 700 Eos # (Auto) 0 Baso # (Auto) 100 PT 11.9 INR 1.0 APTT 32 Sodium Potassium Chloride Carbon Dioxide BUN Creatinine Estimated GFR BUN/Creatinine Ratio Glucose Calcium Total Bilirubin AST ALT Alkaline Phosphatase Troponin I Total Protein Albumin Globulin Albumin/Globulin Ratio Lipase Urine RBC 0-1/hpf Urine WBC 1-5/hpf Ur Squamous Epith Cells 1-5 /hpf Ur Transition Epith Cell 1-5/hpf Amorphous Sediment 1+ Urine Bacteria Few (2-10) H Hyaline Casts 10-30/lpf Ur Culture Indicated? Specimen cultured Stl C. cayetanensis PCR Stool Rotavirus (PCR) Stool Adenovirus (PCR) Stool Astrovirus (PCR) Stool Cryptosporidium PCR Stl E.coli Shiga Tox PCR St Sh/Enteroin Ecoli PCR Stool E coli O157 PCR Stl Enterotoxigenic E PCR Stool EPEC (PCR) Stl E. histolytica PCR Stool Giardia Lamblia PCR Stool Sapovirus (PCR) Stl P. shigelloides PCR St Y.enterocolitica PCR Stool Vibrio (PCR) Stl Vibrio cholerae PCR Stl Enteroaggr Ecoli PCR Stl Norovirus GI/GII PCR Campylobacter (PCR) C. difficile Tox (PCR) Salmonella (PCR) Blood Type Antibody Screen 08/11/19 08/11/19 08/11/19 13:25 13:25 13:25 WBC RBC Hgb Hct MCV MCH MCHC RDW Plt Count Neut % (Auto) Lymph % (Auto) [place] % (Auto) Eos % (Auto) Baso % (Auto) Neut # (Auto) Lymph # (Auto) [place] # (Auto) Eos # (Auto) Baso # (Auto) PT INR APTT Sodium 138 Potassium 3.7 Chloride 99 Carbon Dioxide 24 BUN 16 Creatinine 0.70 Estimated GFR > 60.0 BUN/Creatinine Ratio 22.9 H Glucose 143 H Calcium 9.9 Total Bilirubin 0.6 AST 24 ALT 19 Alkaline Phosphatase 67 Troponin I < 0.012 Total Protein 8.4 H Albumin 5.1 H Globulin 3.3 Albumin/Globulin Ratio 1.5 Lipase 51 Urine RBC Urine WBC Ur Squamous Epith Cells Ur Transition Epith Cell Amorphous Sediment Urine Bacteria Hyaline Casts Ur Culture Indicated? Stl C. cayetanensis PCR Stool Rotavirus (PCR) Stool Adenovirus (PCR) Stool Astrovirus (PCR) Stool Cryptosporidium PCR Stl E.coli Shiga Tox PCR St Sh/Enteroin Ecoli PCR Stool E coli O157 PCR Stl Enterotoxigenic E PCR Stool EPEC (PCR) Stl E. histolytica PCR Stool Giardia Lamblia PCR Stool Sapovirus (PCR) Stl P. shigelloides PCR St Y.enterocolitica PCR Stool Vibrio (PCR) Stl Vibrio cholerae PCR Stl Enteroaggr Ecoli PCR Stl Norovirus GI/GII PCR Campylobacter (PCR) C. difficile Tox (PCR) Salmonella (PCR) Blood Type A Positive Antibody Screen Negative 0208/12/19 08/12/19 01:15 05:20 05:20 WBC 10.8 RBC 4.20 Hgb 12.3 Hct 36.4 MCV 86.6 MCH 29.4 MCHC 33.9 RDW 13.4 Plt Count 327 Neut % (Auto) 64.2 Lymph % (Auto) 25.9 [place] % (Auto) 8.3 Eos % (Auto) 1.2 L Baso % (Auto) 0.4 Neut # (Auto) 6900 Lymph # (Auto) 2800 [place] # (Auto) 900 Eos # (Auto) 100 Baso # (Auto) 0 PT INR APTT Sodium 137 Potassium 3.8 Chloride 100 Carbon Dioxide 30 BUN 8 Creatinine 0.70 Estimated GFR > 60.0 BUN/Creatinine Ratio 11.4 Glucose 108 H Calcium 8.9 Total Bilirubin AST ALT Alkaline Phosphatase Troponin I Total Protein Albumin Globulin Albumin/Globulin Ratio Lipase Urine RBC Urine WBC Ur Squamous Epith Cells Ur Transition Epith Cell Amorphous Sediment Urine Bacteria Hyaline Casts Ur Culture Indicated? Stl C. cayetanensis PCR Not detected Stool Rotavirus (PCR) Not detected Stool Adenovirus (PCR) Not detected Stool Astrovirus (PCR) Not detected Stool Cryptosporidium PCR Not detected Stl E.coli Shiga Tox PCR Not detected St Sh/Enteroin Ecoli PCR Not detected Stool E coli O157 PCR Not Reportable Stl Enterotoxigenic E PCR Not detected Stool EPEC (PCR) Not detected Stl E. histolytica PCR Not detected Stool Giardia Lamblia PCR Not detected Stool Sapovirus (PCR) Not detected Stl P. shigelloides PCR Not detected St Y.enterocolitica PCR Not detected Stool Vibrio (PCR) Not detected Stl Vibrio cholerae PCR Not detected Stl Enteroaggr Ecoli PCR Not detected Stl Norovirus GI/GII PCR Not detected Campylobacter (PCR) Not detected C. difficile Tox (PCR) Not detected Salmonella (PCR) Not detected Blood Type Antibody Screen Discharge Plan Discharge Plan Patient Disposition: Home Discharge orders & Medications Prescriptions: Continued bupropion HCl 300 mg tablet extended release 24 hr 300 mg PO QAM Qty: 30 RF: 5 duloxetine 60 mg capsule,delayed release(DR/EC) 60 mg PO DAILY Qty: 30 RF: 5 propranolol 20 mg tablet 20 mg PO BID Qty: 60 RF: 5 tizanidine 4 mg capsule 4 mg PO BEDTIME PRN (Reason: muscle spasticity) Qty: 30 RF: 5 metformin 500 mg tablet 500 mg PO QPM RF: 0 valsartan-hydrochlorothiazide 80-12.5 mg Tablet 1 tab PO DAILY RF: 0 Centrum 50 1 tab PO DAILY RF: 0 lysine 1 tab PO DAILY RF: 0 lamotrigine 100 mg tablet 200 mg PO QPM RF: 0 Diet/Activity/Treatments Diet comment: BRAT diet Visit Report/Discharge Packet Instructions: Viral Gastroenteritis, [place] Diet Discharge Data Attending Provider: Everett Rodriguez Admit Date/Time: 08/11/19 16:29 Quality VTE Deep Vein Thrombosis/Pulmonary Embolism Present on Admission: No
--- NOTE | 2019-08-12 13:28 | CM.DANOTE ---
DCP Brief Assessment Note Patient is a 39 year old female who was admitted on 08/11/19 for Nausea/fever/diarrhea. Pt has [facility] for insurance and her PCP is not listed. EMR was reviewed. Per MD, pt with hx of morbid obesity, irritable bowel syndrom, depression and was determined not to be anemic or orthostatic after admit. Surgeon Consult completed and recommending possible colonoscopy as an outpt and no further surgical intervention needed at this time. Per MD, pt now medically stable to d/c home with assist and no identified barriers to discharge. Per RN, pt has been cooperative and agreeable with d/c home and no concerns noted. SW met bedside briefly with pt who is agreeable with d/c plan of home today and does not anticipate any SW needs or d/c coordination needs. plans to provide transport. Plan: Patient to d/c home today via POV and no SW needs at this time. BRAXTON Hussein
--- NOTE | 2019-08-12 13:59 | PC.NURSE ---
Discharge Pt states she has pain in LUQ of abd notified. Denies nausea and declines pain medication. Pt states she is ready to go home. present. PIV removed prior to d/c. D/c instructions provided to pt and her . Aware to f/u with her PCP. Aware to contact PCP with any additional questions or concerns. Pt states she is taking all belongings home with her. Refused w/c, stating that caused too many bumps and shakes to her abd making her feel worse. Walked out with [employer] escort. left in car with .
== END 2019-08-12 11:50 | disposition home or self-care (01) ==
LOC: ED 15:42 → AC 16:31
PROVIDERS: Emergency Medicine; Admitting Provider Internal Medicine; Emergency Provider Emergency Medicine; Visit Provider Internal Medicine
DX: K52.89 Other specified noninfective gastroenteritis and colitis (principal); R10.9 Unspecified abdominal pain; R19.7 Diarrhea, unspecified; K92.1 Melena; R55 Syncope and collapse; F32.9 Major depressive disorder, single episode, unspecified; F41.9 Anxiety disorder, unspecified; I10 Essential (primary) hypertension
CPT/HCPCS: 36415; 74177; 80048; 80053; 81003; 81015; 81025; 83690; 84484; 85025; 85610; 85730; 86850; 86900; 86901; 87086; 87507; 93005; 96361; 96374; 96375; 99284; 99285; G0378; J2270; J2405; Q9967

== ENCOUNTER 2019-12-15 16:46 | Emergency (ER) | payer OTHER, SELFPAY ==
[2019-10-05 15:15] VITALS: BMI 46.3
[2019-12-15 16:49] VITALS: BP 149/103; PULSE 79; RESP 18; TEMP 36.6; O2SAT 97; BMI 44.6
--- NOTE | 2019-12-15 18:51 | DI.US.S_ITS ---
PROCEDURE: US PELVIC COMPLETE INDICATIONS: ABDOMEN PAIN, ENDOMETRIOSIS, HISTORY OF CYSTS TECHNIQUE: Real-time scanning was performed of the pelvic organs, with image documentation. Additional endovaginal scanning was necessary due to incomplete visualization of the adnexal and endometrial structures by transabdominal scanning. COMPARISON: [facility], CT, CT ABDOMEN PELVIS W CON, 08/11/2019, 13:55. FINDINGS: Transabdominal scanning: Limited scanning through the kidneys shows no hydronephrosis. No pathologic free abdominal or pelvic fluid. Endovaginal scanning: Uterus: Uterus is retroverted and normal in size at 4.9 x 4.7 x 3.5 cm. No uterine mass. The endometrium measures 8 mm in combined thickness. Ovaries: Within normal limits. Arterial and venous flow seen in both ovaries. Right ovary measures 3.8 x 2.4 x 1.4 cm. Left ovary measures 3.6 x 3.5 x 2.1 cm. IMPRESSION: 1. Sonographic appearance of the ovaries is within normal limits. No significant ovarian cysts. No torsion demonstrated. 2. No free fluid. 3. Uterus and endometrium are within normal limits. Dictated by: Neymar Sosa M.D. on 12/15/2019 at 20:35 Approved by: Neymar Sosa M.D. on 12/15/2019 at 20:38
[2019-12-15 19:07] LABS: Add Manual Diff / Slide Review NO; Basophils Absolute Auto 0 /uL (0-100); Basophils Percent Auto 0.4 % (0-2); Eosinophils Absolute Auto 100 /uL (0-450); Eosinophils Percent Auto 1.6 % (2-4); Hematocrit 37.8 % (36-46); Hemoglobin 12.9 g/dL (12.0-16.0); Lymphocytes Absolute Auto 2500 /uL (1100-4500); Lymphocytes Percent Auto 30.6 % (25-40); Mean Corpuscular Hemoglobin 29.5 PG (26-34); Mean Corpuscular Volume 86.7 fL (80-100); Monocytes Absolute Auto 600 /uL (0-900); Monocytes Percent Auto 7.9 % (3-14); Neutrophils Absolute Auto 4800 /uL (1500-7000); Neutrophils Percent Auto 59.5 % (50-75); Platelet Count 375 X10^3/uL (150-400); Red Blood Cell Count 4.36 X10^6/uL (4.0-5.2); Red Cell Distribution Width 13.4 % (11.6-14.8); White Blood Cell Count 8.1 X10^3/uL (4.5-11.0)
[2019-12-15 19:18] LABS: Alanine Aminotransferase 16 IU/L (<35); Albumin 4.4 g/dL (3.5-5.0); Albumin Globulin Ratio 1.5 (1.0-2.8); Alkaline Phosphatase 52 U/L (38-126); Amylase 67 U/L (30-110); Aspartate Aminotransferase 20 IU/L (14-36); BUN Creatinine Ratio 23.7 (6-22); Bilirubin Total 0.4 mg/dL (0.2-1.3); Blood Urea Nitrogen 14 mg/dL (7-17); Calcium 9.6 mg/dL (8.4-10.2); Carbon Dioxide 27 mmol/L (22-32); Chloride 101 mmol/L (98-107); Estimated Glomerular Filt Rate > 60.0 mL/min (>60); Glucose 102 mg/dL (70-100); HEMOLYSIS < 15 (0-50); Lipase 80 U/L (23-300); Potassium 3.8 mmol/L (3.4-5.1); Sodium 135 mmol/L (137-145); Total Protein 7.4 g/dL (6.3-8.2)
--- NOTE | 2019-12-15 19:21 | ED_ITS ---
HPI - Abdominal Pain <CHELLY Park - Last Filed: 12/15/19 21:13> General Chief Complaint: Abdominal Pain Stated Complaint: severe pelvic pain x2 wks Time Seen by Provider: 12/15/19 18:18 Source: patient Mode of arrival: Ambulatory Limitations: no limitations History of Present Illness HPI narrative: The patient is a 39-year-old female nonsmoker with history of endometriosis as well as bilateral ovarian cysts who presents with a cheer complaint of pelvic pain for the past 2 weeks. She states that her ovaries hurt. She states that is not possible at this point time. She thought she had a UTI for a few days. She states that both of her ovaries have caused excruciating pain, worse in the past 2 weeks. She has been having pelvic pain since she miscarried last year. She denies any abnormal nausea vomiting or diarrhea. She does have history of IBS as well as morbid obesity with BMI 44.6., but complains of some hot flashes. She states that her last menstrual cycle was approximately 2 weeks ago. Denies any abdominal surgery history other than when she was diagnosed with endometriosis. She denies any possibility of sexually transmitted infections. Related Data Home Medications Medication Instructions Recorded Confirmed metformin 500 mg tablet 500 mg PO QPM tab 02/22/19 11/06/19 Centrum 50 1 tab PO DAILY 08/11/19 11/06/19 lysine 1 tab PO DAILY 08/11/19 11/06/19 Previous Rx's Medication Instructions Recorded bupropion HCl 300 mg 24 hr tablet, 300 mg PO QAM #30 tab 10/09/19 extended release duloxetine 60 mg capsule,delayed 60 mg PO BID #60 cap 10/09/19 release lamotrigine 100 mg tablet 200 mg PO QPM #60 tab 10/09/19 propranolol 20 mg tablet 20 mg PO BID #60 tab 10/09/19 tizanidine 4 mg capsule 4 mg PO BEDTIME PRN #30 cap 10/09/19 ketorolac 10 mg PO TID #10 tab 12/15/19 Allergies Allergy/AdvReac Type Severity Reaction Status Date / Time amoxicillin Allergy Intermediate rash Verified 12/15/19 16:49 Review of Systems <CHELLY Park - Last Filed: 12/15/19 21:13> Review of Systems Narrative: GENERAL: Denies chills, fatigue, malaise, fever, sweats. HEENT: Denies sinus pain, ear pain, sore throat, difficulty swallowing, dizziness. RESPIRATORY: Denies dyspnea, cough, wheezing, hemoptysis, sputum. CARDIOVASCULAR: Denies chest pain, palpitations, orthopnea, edema, GASTROINTESTINAL: Denies nausea, vomiting, abdominal pain, diarrhea, constipation, melena. : See HPI MUSCULOSKELETAL: denies weakness, joint pain, or bony pain SKIN: Denies rash, skin lesions, or other NEUROLOGIC: Denies weakness, headache, numbness, change in speech, confusion, seizures, incoordination. PSYCHIATRIC: No concerning psychosocial issues. 12 point review of systems is negative except for those stated above Patient History <CHELLY Park - Last Filed: 12/15/19 21:13> Medical History (Updated 12/15/19 @ 21:09 by CHELLY Park) Anxiety (Acute) Depression (Acute) Endometriosis (Acute) Hypertelorism (Acute) Post traumatic stress disorder (PTSD) (Acute) Social History household members: spouse and friend(s) Smoking Status: Never smoker alcohol intake: never Smoking Status: Never smoker Substance Use Type: does not use Exam <CHELLY Park - Last Filed: 12/15/19 21:13> Narrative Exam Narrative: GENERAL: Morbidly obese female lying on stretcher in no acute distress HEAD: Atraumatic. Normocephalic. No temporal or scalp tenderness. EYES: Pupils equal round and reactive. Extraocular motions intact. No scleral icterus. No injection or drainage. ENT: Nose without bleeding, purulent drainage or septal hematoma. Throat without erythema, tonsillar hypertrophy or exudate. Uvula midline. Airway patent. NECK: Trachea midline. No JVD or lymphadenopathy. Supple, nontender, no meningeal signs. CARDIOVASCULAR: Regular rate and rhythm without murmurs, gallops, or rubs. RESPIRATORY: Clear to auscultation. Breath sounds equal bilaterally. No wheezes, rales, or rhonchi. GASTROINTESTINAL: Abdomen soft, non-tender, nondistended. No hepato- splenomegaly, or palpable masses. No guarding. EXTREMITIES: No clubbing, cyanosis, or edema. No joint tenderness, effusion, or edema noted. BACK: Nontender without deformity or crepitance. No flank tenderness. NEURO: AOx3. SKIN: No rash or erythema. Initial Vital Signs Initial Vital Signs: Vital Signs Temperature 97.8 F 12/15/19 16:49 Pulse Rate 79 12/15/19 16:49 Respiratory Rate 18 12/15/19 16:49 Blood Pressure 149/103 H 12/15/19 16:49 Pulse Oximetry 97 12/15/19 16:49 <Yovany Helton DO - Last Filed: 12/15/19 23:02> Initial Vital Signs Initial Vital Signs: Vital Signs Temperature 97.8 F 12/15/19 16:49 Pulse Rate 79 12/15/19 16:49 Respiratory Rate 18 12/15/19 16:49 Blood Pressure 149/103 H 12/15/19 16:49 Pulse Oximetry 97 12/15/19 16:49 Course <ZBIGNIEW ParkBC - Last Filed: 12/15/19 21:13> Orders Ordered: ED Orders 12/15/19 18:51 US pelvic complete Stat 12/15/19 18:58 Amylase Stat Complete Blood Count AUTO DIFF Stat Comprehensive Metabolic Panel Stat Lipase Stat 12/15/19 19:40 Urine Microscopic Stat Discontinued Medications Ketorolac Tromethamine (Toradol) 30 mg IV NOW ONE Stop: 12/15/19 20:22 Last Admin: 12/15/19 20:30 Dose: 30 mg Documented by: ARTHUR Ketorolac Tromethamine (Toradol 10mg Prepack) 1 bottle MISC SEEINSTR ONE Stop: 12/15/19 21:07 Last Admin: 12/15/19 21:16 Dose: 1 bottle Documented by: ARTHUR Vital Signs Vital signs: Vital Signs - 8 hr 12/15/19 16:49 12/15/19 20:34 Temperature 97.8 F Pulse Rate 79 77 Respiratory Rate 18 Blood Pressure 149/103 H Blood Pressure [Left Arm] 108/66 Pulse Oximetry 97 99 <DO Zac Sylvester Last Filed: 12/15/19 23:02> Orders Ordered: ED Orders 12/15/19 18:51 US pelvic complete Stat 12/15/19 18:58 Amylase Stat Complete Blood Count AUTO DIFF Stat Comprehensive Metabolic Panel Stat Lipase Stat 12/15/19 19:40 Urine Microscopic Stat Discontinued Medications Ketorolac Tromethamine (Toradol) 30 mg IV NOW ONE Stop: 12/15/19 20:22 Last Admin: 12/15/19 20:30 Dose: 30 mg Documented by: ARTHUR Ketorolac Tromethamine (Toradol 10mg Prepack) 1 bottle MISC SEEINSTR ONE Stop: 12/15/19 21:07 Last Admin: 12/15/19 21:16 Dose: 1 bottle Documented by: ARTHUR Vital Signs Vital signs: Vital Signs - 8 hr 12/15/19 16:49 12/15/19 20:34 Temperature 97.8 F Pulse Rate 79 77 Respiratory Rate 18 Blood Pressure 149/103 H Blood Pressure [Left Arm] 108/66 Pulse Oximetry 97 99 MDM - Abdominal Pain <CHELLY Park - Last Filed: 12/15/19 21:13> Lab Data Result diagrams: 12/15/19 18:58 12/15/19 18:58 Labs: Lab Results 12/15/19 12/15/19 12/15/19 Range/Units 18:58 18:58 19:40 WBC 8.1 (4.5-11.0) X10^3/uL RBC 4.36 (4.0-5.2) X10^6/uL Hgb 12.9 (12.0-16.0) g/dL Hct 37.8 (36-46) % MCV 86.7 (80-100) fL MCH 29.5 (26-34) PG MCHC 34.0 (30-36) % RDW 13.4 (11.6-14.8) % Plt Count 375 (150-400) X10^3/uL Neut % (Auto) 59.5 (50-75) % Lymph % (Auto) 30.6 (25-40) % [place] % (Auto) 7.9 (3-14) % Eos % (Auto) 1.6 L (2-4) % Baso % (Auto) 0.4 (0-2) % Neut # (Auto) 4800 (7102-8649) /uL Lymph # (Auto) 2500 (6326-8451) /uL [place] # (Auto) 600 (0-900) /uL Eos # (Auto) 100 (0-450) /uL Baso # (Auto) 0 (0-100) /uL Sodium 135 L (137-145) mmol/L Potassium 3.8 (3.4-5.1) mmol/L Chloride 101 (98-107) mmol/L Carbon Dioxide 27 (22-32) mmol/L BUN 14 (7-17) mg/dL Creatinine 0.59 (0.52-1.04) mg/dL Estimated GFR > 60.0 (>60) mL/min BUN/Creatinine Ratio 23.7 H (6-22) Glucose 102 H (70-100) mg/dL Calcium 9.6 (8.4-10.2) mg/dL Total Bilirubin 0.4 (0.2-1.3) mg/dL AST 20 (14-36) IU/L ALT 16 (<35) IU/L Alkaline Phosphatase 52 (38-126) U/L Total Protein 7.4 (6.3-8.2) g/dL Albumin 4.4 (3.5-5.0) g/dL Globulin 3.0 (1.7-4.1) g/dL Albumin/Globulin Ratio 1.5 (1.0-2.8) Amylase 67 (30-110) U/L Lipase 80 (23-300) U/L Urine RBC 0-1/hpf (0-5/HPF) Urine WBC 0-1/hpf (0-5/HPF) Ur Squamous Epith Cells 1-5 /hpf (0-5/HPF) Urine Bacteria Few (2-10) H (None) Ur Culture Indicated? Cult not indicated Point of care testing: Point of Care Testing Test Results Negative Urine Dip Bedside Urine Glucose Negative Bedside Urine Bilirubin - Negative Bedside Urine Ketone - Negative Urine Specific [place] 1.015 Bedside Urine Occult Blood +/- Bedside Urine pH 6.5 Bedside Urine Protein - Negative Bedside Urine Urobilinogen - Negative Bedside Urine Nitrite - Negative Bedside Urine Leukocytes - Negative Esterase Imaging Data US - MARKETING PROJECT MANAGER: Radiologist's Impression: [address] [place] [id number] Ultrasound Report Signed Patient: Silvia Yeager [facility]#: [id number] : 1980Acct:[id number] Age/Sex: 39 / FDate of Service: 12/15/19 Loc: ED Accession Number: [id number] Procedure: US pelvic complete Ordering Provider: Rach Mittal LICENSING ANALYST-BC PROCEDURE: US PELVIC COMPLETE INDICATIONS: ABDOMEN PAIN, ENDOMETRIOSIS, HISTORY OF CYSTS TECHNIQUE: Real-time scanning was performed of the pelvic organs, with image documentation. Additional endovaginal scanning was necessary due to incomplete visualization of the adnexal and endometrial structures by transabdominal scanning. COMPARISON: [facility], CT, CT ABDOMEN PELVIS W CON, 08/11/2019, 13:55. FINDINGS: Transabdominal scanning: Limited scanning through the kidneys shows no hydronephrosis. No pathologic free abdominal or pelvic fluid. Endovaginal scanning: Uterus: Uterus is retroverted and normal in size at 4.9 x 4.7 x 3.5 cm. No uterine mass. The endometrium measures 8 mm in combined thickness. Ovaries: Within normal limits. Arterial and venous flow seen in both ovaries. Right ovary measures 3.8 x 2.4 x 1.4 cm. Left ovary measures 3.6 x 3.5 x 2.1 cm. IMPRESSION: 1. Sonographic appearance of the ovaries is within normal limits. No significant ovarian cysts. No torsion demonstrated. 2. No free fluid. 3. Uterus and endometrium are within normal limits. Dictated by: Neymar Sosa M.D. on 12/15/2019 at 20:35 Approved by: Neymar Sosa M.D. on 12/15/2019 at 20:38 MDM Narrative Medical decision making narrative: The patient is a 39-year-old female with history of endometriosis and ovarian cysts who presents with a chief complaint of pelvic pain ongoing for the past year, worse over the past 2 weeks. Lab work is grossly within normal limits, no leukocytosis. Urine has no signs infection. Patient repeatedly declined STI testing as well pelvic exam during her stay in the emergency department. I discussed the possibility of PID, though not likely as the patient states that she is not a risk STIs has no fever, no leukocytosis. However the patient repeatedly declined pelvic exam the emergency department. She feels much improved after the dose of Toradol. I did give her prescription thereof. Is possible that her previous ovarian cyst as ruptured causing her increased pain. The patient appears slightly frustrated that I am not able to exactly pinpoint the cause of her pelvic pain today, though I discussed that has been ongoing for a year and our evaluation workup today helps rule out several critical possibilities such as ovarian torsion. Additionally exam is limited as she does not want STI testing or pelvic exam. I encouraged her to follow up with primary care provider in the next few days, not combining Toradol with any NSAIDs, and coming back to the emergency department for any acute concerns such as inability keep down fluids. Patient has no questions or concerns upon discharge and states understanding return precautions as well as follow-up care. <Yovany Helton DO - Last Filed: 12/15/19 23:02> Lab Data Labs: Lab Results 12/15/19 12/15/19 12/15/19 Range/Units 18:58 18:58 19:40 WBC 8.1 (4.5-11.0) X10^3/uL RBC 4.36 (4.0-5.2) X10^6/uL Hgb 12.9 (12.0-16.0) g/dL Hct 37.8 (36-46) % MCV 86.7 (80-100) fL MCH 29.5 (26-34) PG MCHC 34.0 (30-36) % RDW 13.4 (11.6-14.8) % Plt Count 375 (150-400) X10^3/uL Neut % (Auto) 59.5 (50-75) % Lymph % (Auto) 30.6 (25-40) % [place] % (Auto) 7.9 (3-14) % Eos % (Auto) 1.6 L (2-4) % Baso % (Auto) 0.4 (0-2) % Neut # (Auto) 4800 (2602-9795) /uL Lymph # (Auto) 2500 (7057-4141) /uL [place] # (Auto) 600 (0-900) /uL Eos # (Auto) 100 (0-450) /uL Baso # (Auto) 0 (0-100) /uL Sodium 135 L (137-145) mmol/L Potassium 3.8 (3.4-5.1) mmol/L Chloride 101 (98-107) mmol/L Carbon Dioxide 27 (22-32) mmol/L BUN 14 (7-17) mg/dL Creatinine 0.59 (0.52-1.04) mg/dL Estimated GFR > 60.0 (>60) mL/min BUN/Creatinine Ratio 23.7 H (6-22) Glucose 102 H (70-100) mg/dL Calcium 9.6 (8.4-10.2) mg/dL Total Bilirubin 0.4 (0.2-1.3) mg/dL AST 20 (14-36) IU/L ALT 16 (<35) IU/L Alkaline Phosphatase 52 (38-126) U/L Total Protein 7.4 (6.3-8.2) g/dL Albumin 4.4 (3.5-5.0) g/dL Globulin 3.0 (1.7-4.1) g/dL Albumin/Globulin Ratio 1.5 (1.0-2.8) Amylase 67 (30-110) U/L Lipase 80 (23-300) U/L Urine RBC 0-1/hpf (0-5/HPF) Urine WBC 0-1/hpf (0-5/HPF) Ur Squamous Epith Cells 1-5 /hpf (0-5/HPF) Urine Bacteria Few (2-10) H (None) Ur Culture Indicated? Cult not indicated Point of care testing: Point of Care Testing Test Results Negative Urine Dip Bedside Urine Glucose Negative Bedside Urine Bilirubin - Negative Bedside Urine Ketone - Negative Urine Specific [place] 1.015 Bedside Urine Occult Blood +/- Bedside Urine pH 6.5 Bedside Urine Protein - Negative Bedside Urine Urobilinogen - Negative Bedside Urine Nitrite - Negative Bedside Urine Leukocytes - Negative Esterase Discharge Plan Departure Patient Disposition: Home Clinical Impression: Abdominal pain Qualifiers: Abdominal location: lower abdomen, unspecified Qualified Code(s): R10.30 - Lower abdominal pain, unspecified Discharge Date/Time: 12/15/19 21:28 Instructions: DI for Abdominal Pain-Adult, DI for Pelvic Pain Activity Restrictions/Additional Instructions: Thank you for trusting us with your care today As discussed, your imaging and lab work as well as urinalysis came back with no acute findings It is possible that the ovarian cyst that you used to have burst Please follow-up with primary care provider in the next few days. I have also given you contact information the [facility] health district resource officer. They can help you identify local health resources and providers. I have given you a prescription of Toradol. This is an NSAID. Do not combine it with other NSAIDs such as Aleve or ibuprofen. I suggest taking it with some food, as it can irritate your stomach. As discussed, please come back to the emergency department for any acute concerns such as inability keep down fluids etcetera Prescriptions: New ketorolac 10 mg tablet 10 mg PO TID Qty: 10 RF: 0 No Action metformin 500 mg tablet 500 mg PO QPM RF: 0 duloxetine 60 mg capsule,delayed release(DR/EC) 60 mg PO BID Qty: 60 RF: 5 bupropion HCl 300 mg tablet extended release 24 hr 300 mg PO QAM Qty: 30 RF: 5 lamotrigine 100 mg tablet 200 mg PO QPM Qty: 60 RF: 5 propranolol 20 mg tablet 20 mg PO BID Qty: 60 RF: 5 tizanidine 4 mg capsule 4 mg PO BEDTIME PRN (Reason: muscle spasticity) Qty: 30 RF: 5 Centrum 50 1 tab PO DAILY RF: 0 lysine 1 tab PO DAILY RF: 0 Referrals: [facility] [Outside] <Yovany Helton DO - Last Filed: 12/15/19 23:02> [facility] I was immediately available in the department for consultation. This documentation has been reviewed and I agree with assessment and plan. Supervised by Yovany Helton DO
[2019-12-15 20:13] LABS: Bacteria Urine Few (2-10); Culture Indicated Urine Cult Not Indicated; RBC Urine 0-1/HPF (0-5/HPF); Squamous Epithelial Cell Urine 1-5 /HPF (0-5/HPF); WBC Urine 0-1/HPF (0-5/HPF)
[2019-12-15] MEDS: KETOROLAC 60 MG/2 ML VIAL 30 MG IV (20:30)
[2019-12-15 20:34] VITALS: BP 108/66; PULSE 77; O2SAT 99
[2019-12-15] MEDS: KETOROLAC 10MG PREPACK 1 BOTTLE MISC (21:16)
== END 2019-12-15 21:28 | disposition home or self-care (01) ==
PROVIDERS: Emergency Provider Nurse Practitioner Family
DX: R10.30 Lower abdominal pain, unspecified (principal)
CPT/HCPCS: 36415; 76830; 76856; 80053; 81003; 81015; 81025; 82150; 83690; 85025; 96374; 99284; J1885

== ENCOUNTER → 2019-12-28 12:12 | Outpatient (CLI) | payer OTHER, SELFPAY ==
[2019-10-05 15:15] VITALS: BMI 46.3
[2019-12-28 13:01] LABS: Alanine Aminotransferase 16 IU/L (<35); Albumin Globulin Ratio 1.4 (1.0-2.8); Alkaline Phosphatase 46 U/L (38-126); Aspartate Aminotransferase 19 IU/L (14-36); BUN Creatinine Ratio 17.9 (6-22); Bilirubin Total 0.5 mg/dL (0.2-1.3); Blood Urea Nitrogen 10 mg/dL (7-17); Calcium 9.2 mg/dL (8.4-10.2); Carbon Dioxide 26 mmol/L (22-32); Chloride 105 mmol/L (98-107); Cholesterol 260 mg/dL (140-199); Estimated Glomerular Filt Rate > 60.0 mL/min (>60); Globulin 2.8 g/dL (1.7-4.1); Glucose 97 mg/dL (70-100); HDL Cholesterol 55 mg/dL (40-60); HEMOLYSIS < 15 (0-50); LDL Cholesterol Calculated 171 mg/dL (<100); Potassium 3.9 mmol/L (3.4-5.1); Sodium 137 mmol/L (137-145); Total Protein 6.8 g/dL (6.3-8.2); Triglycerides 168 mg/dL (35-150)
[2019-12-28 13:02] LABS: Hemoglobin A1C% w Est Avg Glu 5.7 % (4.0-6.0)
[2019-12-28 14:18] LABS: Free T4, Direct Thyroxine 0.83 ng/dL (0.78-2.19)
[2019-12-28 14:31] LABS: Thyroid Stimulating Hormone 2.72 uIU/mL (0.47-4.68)
== END ==
PROVIDERS: Referring Provider Family Medicine; Visit Provider Family Medicine
DX: E78.5 Hyperlipidemia, unspecified (principal); I10 Essential (primary) hypertension
CPT/HCPCS: 36415; 80053; 80061; 83036; 84439; 84443

== ENCOUNTER → 2020-03-18 12:38 | Outpatient (CLI) | payer OTHER, SELFPAY ==
[2020-03-13 12:05] VITALS: BMI 46.3
[2020-03-19 17:06] LABS: COVID19 Sendout Not Detected (Not Detect)
== END ==
PROVIDERS: PCP Family Medicine; Visit Provider Nurse Practitioner
DX: Z11.59 Encounter for screening for other viral diseases (principal)
CPT/HCPCS: 87635

== ENCOUNTER 2020-03-22 13:00 | Observation (INO) | payer OTHER, SELFPAY ==
[2020-03-13 12:05] VITALS: BMI 46.3
[2020-03-20 10:42] VITALS: BMI 47.9
[2020-03-21] VITALS (18 sets, daily range): BP systolic 105–181; BP diastolic 49–95; PULSE 66–96; RESP 12–22; TEMP 36.3–37.1; O2SAT 90–99; BMI 46.8
--- NOTE | 2020-03-21 | PATH_ITS ---
[facility] Accession Number: [id number] . 01 Material submitted: . UTERUS/FALLOPIAN TUBES - UTERUS AND BILATERAL FALLOPIAN TUBES . 02 Diagnosis: Uterus And Bilateral Fallopian Tubes, Hysterectomy And Bilateral Salpingectomy: Focal serosal endometriosis. Leiomyoma, 2 cm. Proliferative endometrium with no diagnostic abnormality. Bilateral fimbriated fallopian tubes with no diagnostic abnormality. No evidence of malignancy. [facility] 03/26/2020 1157 Local . 02 Electronically signed: . Bill Caldera MD, PhD, Pathologist NPI- [id number] . 01 Gross description: . Received in formalin, labeled uterus and bilateral fallopian tubes is a 44 gram diffusely disrupted uterus with one attached fallopian tube. The uterus measures 6.0 x 5.5 x 3.5 cm. The serosa is hernandez-pink and smooth with a 2.0 x 1.0 x 1.0 cm subserosal leiomyoma with hernandez-white whorled cut surfaces and no areas of hemorrhage, necrosis or cystic degeneration. There is a 2.0 x 1.0 cm possible portion of disrupted ragged cervix. Sectioning through the uterus reveals an irregular 2.5 x 1.0 cm endometrial cavity with a hernandez-pink endometrium measuring 0.1 cm in thickness. The myometrium is hernandez-pink and trabeculated measuring up to 1.5 cm in thickness. The attached fallopian tube measures 4.5 cm in length by 0.5 cm in diameter and displays a hernandez-pink smooth serosa. Sectioning reveals a hernandez mucosa and a pinpoint to stellate lumen measuring 0.2 cm in diameter. There is an additional detached fragmented fallopian tube measuring 4.5 x 1.0 x0.5 cm with a hernandez-pink disrupted serosa and hernandez mucosa. No ovaries are identified. [employer] Party Manager sections are submitted. . A1-A2: manufacturer's representative perpendicular sections of candidate cervix and endocervix. A3-A4: full-thickness uterus. A5-A6: manufacturer's representative leiomyoma. A7-A8: manufacturer's representative attached fallopian tube. A9-A10: manufacturer's representative detached fragmented fallopian tube. (EA/cmc10 [id number]) /MRV 03/22/2020 1231 Local . 02 Pathologist provided ICD-10: N80.9, R10.2, D25.9 . 02 CPT . 033871 Performed at: 01 [facility] [address] [place] [address] [id number] MD Julian Levy MD Phone: [phone] Performed at: 02 [facility] [id number] [place] [id number] MD Mary Perales MD Phone: [phone]
--- NOTE | 2020-03-21 07:23 | SUR.OPER ---
Lithotomy on padded OR bed. [place] Pad Positioner under torso. Head on pillow, arms padded and tucked at sides. Legs secured in padded yellow fins stirrups.
--- NOTE | 2020-03-21 07:42 | PM.PREOP ---
Pre-operative Note COVID-19 COVID-19 status: Negative Result date/Date tested (Pos, Neg/Pending): 03/18/20 Interval Note History & Physical reviewed/Exam performed by Physician: Yes Changes to H&P: No H&P completed within 30 days and has changed as indicated here:: 03/13/20
[2020-03-21] MEDS: LACTATED RINGERS 1,000 ML 100 ML IV ×3 (07:45→21:22)
[2020-03-21] MEDS: CEFAZOLIN 2 GM/100 ML FROZ.PIGGY IV (07:50)
[2020-03-21] MEDS: ACETAMINOPHEN IV 1,000 MG/100 ML VIAL 400 MG IV (08:30)
[2020-03-21] MEDS: BUPIVACAINE 0.5% W/ EPI (PF) 30 ML VIAL INJ (08:31)
[2020-03-21] MEDS: ROPIVACAINE 0.2% PF 2 MG/ML 10ML AMP 20 ML INJ (08:34)
[2020-03-21] MEDS: HYDROMORPHONE 2 MG INJ IV ×2 (10:04→10:15)
--- NOTE | 2020-03-21 10:11 | P.OP_ITS ---
Operative Date/Time/Diagnoses Date of procedure: 03/21/20 Time of procedure: 10:11 Pre-op diagnosis: Pelvic pain Post-op diagnosis: same Procedure & Clinicians Procedure: Procedures Operation Date: 03/21/20 07:45 Actual Procedures Side Surgeon p Laparoscopic Supracervical Hysterectomy with Bilateral salpingectomy Alexa Mckeon MD Indications: Pelvic pain Surgeon: Alexa Mckeon [employer] Organization Director: Enedelia Koroma Anesthesia Type: General Operative Notes Findings: Seven week size anteverted uterus. Left fundal subserosal fibroid approximately 3 cm x 2 cm Normal tubes and ovaries Normal liver and gallbladder Closure Type: primary Specimen(s): left tube, right tube and uterus Applied: catheter (To continuous drainage) Estimated blood loss (mL): 75 Blood products transfused: none Procedure in detail: The patient was taken to the operating room where she was placed in the dorsal supine position. After adequate general endotracheal anesthesia was achieved, she was placed in the dorsal lithotomy position, and prepped and draped in the usual sterile fashion. A timeout was performed. A bivalve speculum was placed into the vagina and the anterior lip of the cervix grasped with a single-tooth tenaculum. The cervical os was sequentially dilated until the ZUMI uterine manipulator could pass easily into the endometrial cavity. The single-tooth tenaculum was removed from the anterior lip of the cervix, and the bivalve speculum was removed from the vagina. Attention was then turned to the abdomen where 6 mL of half percent Marcaine with epinephrine were injected in the umbilical fold. A 5 mm incision was made. The long Verhees needle was placed into the peritoneal cavity, and its placement confirmed by aspiration and drop test. The long Verhees needle was removed. A long 5 mm trocar was placed without difficulty. Two other incisions were made midway between the pubic symphysis and umbilicus after 5 mL of half percent Marcaine with epinephrine were injected. These were 5 mm incisions. Two long 5 mm trochars were placed under direct visualization. The right tube was grasped with an atraumatic grasper. Using the plasma kinetic with settings of 40 W the mesosalpinx was cauterized and cut all the way down to the cornua of the uterus. The cornua of the uterus was then grasped with an atraumatic grasper. The utero-ovarian ligaments were cauterized and cut. The round ligament and broad ligament was cauterized and cut with plasma kinetic. Hemostasis was achieved. The bladder flap was created using the plasma kinetic with cautery and cut long term across. The uterine arteries on the right side were extensively cauterized with plasma kinetic. All of this was repeated on the left side. The remainder of the bladder flap was created using the plasma kinetic, and the bladder taken down off the lower uterine segment and cervix. Using the L[place], the cervix was amputated from the uterus 2 cm above the uterosacral ligaments, after the ZUMI uterine manipulator was removed from the uterus. There was a small amount of bleeding noted from the posterior edge of the cervix, and this was cauterized for hemostasis. A sponge stick was placed into the vagina. 6 mL of half percent Marcaine with epinephrine were injected above the pubic symphysis. A long 12 mm trocar was placed. An Endobag was placed through the suprapubic trocar and the uterus placed into the Endobag. The trocar was removed. The Bryan was placed into the endobag. The uterus was hand morcellated in approximately 2 pieces. The Endobag and Bryan were removed from the peritoneal cavity. The pelvis was copiously irrigated with warm normal saline. No bleeding was noted. 20 cc of 0.2% ropivacaine were placed over the pedicles in the pelvis. The instruments were removed from the abdomen. The CO2 was allowed to escape. The suprapubic incision was closed on the fascia with 0 Vicryl. The suprapubic incision was closed in the subcutaneous layer with 3 simple interrupted sutures with 3 0 Vicryl. All of the incisions were closed with 4-0 Biosyn in a subcuticular fashion. Steri-Strips, 2 x 2, and op site were placed over the incisions. The moistened sponge stick was removed from the vagina. Sponge, lap, and instrument counts were correct x-2. The patient tolerated the procedure well, was taken to PACU in stable condition. Complications: none Post-operative Condition: stable Disposition: PACU Plan for aftercare: To Acute care after recovery
[2020-03-21] MEDS: OXYCODONE IR 5 MG TABLET PO (10:18)
[2020-03-21] MEDS: KETOROLAC 30 MG/ML VIAL IV ×2 (11:52→23:48)
[2020-03-21] MEDS: HYDROMORPHONE 1 MG INJ IV ×2 (16:13→20:50)
[2020-03-21] MEDS: PRAZOSIN 1 MG CAPSULE 3 MG PO ×2 (17:09→20:41)
--- NOTE | 2020-03-21 19:23 | PC.NURSE ---
1930 - pt up to chair at bedside 1 person assist. Icepack to abdomen maintained. Lap site dressing dry and intact. IV LR infusing @100ml/hr.
[2020-03-21] MEDS: DOCUSATE 250 MG CAPSULE PO (20:41)
[2020-03-21] MEDS: PRAVASTATIN 20 MG TABLET PO (20:41)
[2020-03-21] MEDS: lamoTRIgine 100 MG TABLET 200 MG PO (20:41)
[2020-03-21] MEDS: DULOXETINE 30 MG CAPSULE 60 MG PO (20:41)
[2020-03-22] VITALS (16 sets, daily range): BP systolic 89–145; BP diastolic 40–76; PULSE 66–105; RESP 16–22; TEMP 36.3–36.9; O2SAT 93–98
[2020-03-22] MEDS: HYDROMORPHONE 1 MG INJ IV ×2 (00:41→04:33)
[2020-03-22] MEDS: PANTOPRAZOLE 40 MG TABLET PO (05:16)
[2020-03-22 05:25] LABS: Add Manual Diff / Slide Review NO; Basophils Absolute Auto 0 /uL (0-100); Basophils Percent Auto 0.3 % (0-2); Eosinophils Absolute Auto 0 /uL (0-450); Eosinophils Percent Auto 0.2 % (2-4); Hematocrit 33.6 % (36-46); Lymphocytes Absolute Auto 2200 /uL (1100-4500); Lymphocytes Percent Auto 20.8 % (25-40); Mean Corpuscular HGB Conc 32.7 % (30-36); Mean Corpuscular Hemoglobin 28.4 PG (26-34); Mean Corpuscular Volume 86.8 fL (80-100); Monocytes Absolute Auto 800 /uL (0-900); Monocytes Percent Auto 7.7 % (3-14); Neutrophils Absolute Auto 7600 /uL (1500-7000); Platelet Count 340 X10^3/uL (150-400); Red Blood Cell Count 3.87 X10^6/uL (4.0-5.2); White Blood Cell Count 10.7 X10^3/uL (4.5-11.0)
[2020-03-22] MEDS: LACTATED RINGERS 1,000 ML 100 ML IV (06:59)
[2020-03-22] MEDS: DULOXETINE 30 MG CAPSULE 60 MG PO ×2 (09:37→20:35)
[2020-03-22] MEDS: HYDROMORPHONE 2 MG TABLET PO ×3 (09:37→20:34)
[2020-03-22] MEDS: hydroCHLOROthiazide 12.5 MG CAPSULE PO (09:38)
[2020-03-22] MEDS: VALSARTAN 80 MG TABLET PO (09:38)
[2020-03-22] MEDS: buPROPion XL 150 MG TAB 300 MG PO (09:38)
[2020-03-22] MEDS: DOCUSATE 250 MG CAPSULE PO ×2 (09:38→20:32)
[2020-03-22] MEDS: IBUPROFEN 600 MG TABLET PO ×3 (09:38→20:34)
[2020-03-22] MEDS: lamoTRIgine 100 MG TABLET PO (09:46)
--- NOTE | 2020-03-22 11:01 | PC.NURSE ---
Addendum entered by Kimberly Rios R.N. 03/22/20 13:33: 1215 Dr. Koroma updated on patient's status with hypotension. Received orders to administer IV bolus and monitor BP Q [address] Koroma stopped by for update. Ordered for increase of LR to 200mL/h. Continue to monitor BP Q 30. 1325 Received phone call from Dr with orders to administer Valium PO once, 0.5mg dilaudid IV for breakthrough pain, and alternate ibuprofen/tylenol. Patient's BP has improved, continue to monitor Q 30 min until stable trend. Original Note: 0945 Blum catheter removed, patient able to void. Scant blood noted on peripad. Transferred via fww and placed in bedside chair. 1100 Pt reporting no improvement on level of pain (8/10), worsening with movement after medication administered. Pt contributes increase in pain related fibromyalgia flare-up as well as post-op. Placed call to Dr. Momin's RN to pass on message of possibly needing pain medication change/adjustment, as well as adding home med Propanolol 20mg BID to med list.
--- NOTE | 2020-03-22 11:35 | PM.PN.1 ---
Subjective Subjective Date Patient Seen: 03/22/20 Time Patient Seen: 17:47 Interval history: Patient overall improved, still working on pain control. Has ambulated, voided, passed more flatus, tolerating PO and eating dinner during interview. Exam Vital Signs (past 8 hours): - 03/22/20 04:36 03/22/20 10:06 Temperature 97.4 F L 98.4 F Pulse Rate 66 96 H Respiratory Rate 16 20 Blood Pressure 133/68 121/76 Pulse Oximetry 98 93 Oxygen Delivery Method Room Air Oxygen Flow Rate 0 Const General: cooperative, healthy appearing and comfortable (sitting up in bed eating dinner.) GI Inspection: incision (c/d/i), large pannus and obesity Palpation: soft and tender (mild) Extrem General: normal to inspection Objective Labs Result Diagrams: 03/22/20 11:57 03/22/20 11:57 Labs: Laboratory Results - last 24 hr 03/22/20 04:47 WBC 10.7 RBC 3.87 L Hgb 11.0 L Hct 33.6 L MCV 86.8 MCH 28.4 MCHC 32.7 RDW 14.0 Plt Count 340 Neut % (Auto) 71.0 Lymph % (Auto) 20.8 L [place] % (Auto) 7.7 Eos % (Auto) 0.2 L Baso % (Auto) 0.3 Neut # (Auto) 7600 H Lymph # (Auto) 2200 [place] # (Auto) 800 Eos # (Auto) 0 Baso # (Auto) 0 Assessment & Plan Assessment & Plan narrative: This patient is much improved on the below protocol, though has a ways to go for pain control. We discussed expectations and goals at length. Anticipate discharge in AM. - 600mg motrin q6, 650mg tylenol q6, staggered with PO dilaudid for breakthrough - PRN valium, 2mg PO overnight for anxiety and muscle spasms - Patient received prophylactic lovenox when not ambulatory midday Quality VTE Deep Vein Thrombosis/Pulmonary Embolism Present on Admission: No
[2020-03-22] MEDS: ACETAMINOPHEN 325 MG TABLET 650 MG PO ×2 (11:43→17:48)
[2020-03-22] MEDS: ONDANSETRON 4 MG ODT SL (11:43)
[2020-03-22] MEDS: PROPRANOLOL 10 MG TABLET 20 MG PO ×2 (11:43→20:33)
[2020-03-22] MEDS: SIMETHICONE 80 MG TABLET PO (11:43)
[2020-03-22] MEDS: LACTATED RINGERS 1,000 ML 1000 ML IV (11:47)
[2020-03-22 12:06] LABS: Add Manual Diff / Slide Review NO; Basophils Absolute Auto 0 /uL (0-100); Basophils Percent Auto 0.2 % (0-2); Eosinophils Absolute Auto 100 /uL (0-450); Eosinophils Percent Auto 1.3 % (2-4); Hematocrit 31.4 % (36-46); Hemoglobin 10.4 g/dL (12.0-16.0); Lymphocytes Absolute Auto 2400 /uL (1100-4500); Lymphocytes Percent Auto 25.2 % (25-40); Mean Corpuscular HGB Conc 33.1 % (30-36); Mean Corpuscular Hemoglobin 28.8 PG (26-34); Monocytes Absolute Auto 600 /uL (0-900); Monocytes Percent Auto 6.3 % (3-14); Neutrophils Absolute Auto 6500 /uL (1500-7000); Platelet Count 295 X10^3/uL (150-400); Red Blood Cell Count 3.61 X10^6/uL (4.0-5.2); Red Cell Distribution Width 13.7 % (11.6-14.8); White Blood Cell Count 9.7 X10^3/uL (4.5-11.0)
[2020-03-22] MEDS: HYDROMORPHONE 0.5 MG INJ IV (12:13)
[2020-03-22 12:19] LABS: Albumin 3.7 g/dL (3.5-5.0); Albumin Globulin Ratio 1.5 (1.0-2.8); Alkaline Phosphatase 47 U/L (38-126); Aspartate Aminotransferase 23 IU/L (14-36); BUN Creatinine Ratio 12.7 (6-22); Bilirubin Total 0.5 mg/dL (0.2-1.3); Blood Urea Nitrogen 7 mg/dL (7-17); Calcium 8.6 mg/dL (8.4-10.2); Carbon Dioxide 25 mmol/L (22-32); Chloride 101 mmol/L (98-107); Estimated Glomerular Filt Rate > 60.0 mL/min (>60); Globulin 2.5 g/dL (1.7-4.1); Glucose 179 mg/dL (70-100); HEMOLYSIS < 15 (0-50); Potassium 3.3 mmol/L (3.4-5.1); Sodium 137 mmol/L (137-145); Total Protein 6.2 g/dL (6.3-8.2)
[2020-03-22 12:25] LABS: Alanine Aminotransferase 21 IU/L (<35)
--- NOTE | 2020-03-22 12:32 | CM.DANOTE ---
Discharge Planning/Care Management DCP assessment: case received, EMR reviewed (and including DR. Mckeon's 03/13 clinic note which serves as the H&P). Met then with pt. Introduced self and role. Pt is a 39 year old female who admitted yesterday for a scheduled gynecological procedure with surgeon Dr. Mckeon. Dr. Mckeon is now on vacation and her colleague Dr. Ying Koroma is taking over pt's care while she is in the hospital. Pt reports her pain is high today and it is very painful to walk. Nursing has used a FWW to help her mobilize and pt says her is borrowing one from a religious member. She says she has used a walker before to help her recover from a surgical procedure. At baseline she is independent with no assistive device. EMR indicates pt is disabled. Has multiple psychiatric diagonoses as well as medical comorbidities. She is noted to be 5'4 and 270 lbs. Conferred with LUPIS Rincon, caring for pt today as bedside RN. She stated that Dr. Koroma is aware of pt's current pain issues and adjusting POC accordingly. DCP team will be follow as POC unfolds. UR LUPIS Grijalva is following case in terms of admission status and is aware that pt is very unlikely to d/c today. She confirms admission status is currently SDC but can be changed as need be and she plans to discuss same with Dr. Koroma. Payer: [facility]. P: home with spouse when stable for same. CM Discharge Assessment Start: 03/22/20 12:30 Freq: Status: Active Protocol: Document 03/22/20 12:30 ITV (Rec: 03/22/20 12:31 ITV [id number]) Discharge Planning Assessment Advance Directives? No History Provided By Patient,Medical Record Household Members spouse,friend(s) Independent with ADL's Yes Is patient alert and oriented? Yes DME Already Rented / Owned FWW / Walker Comment is borrowing a FWW for her to use while she recovers . 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 No Cardiac Clearance Received Not Applicable Gastrointestinal Symptoms Abdominal Pain,Belching, Bloating,Change in Stool Characteristics,Constipation, Cramping,Excessive Flatus Comment Dyspepsia Genitourinary Symptoms Frequency Urinary Catheter Present No Hx Urinary Self Catheterization No Comment Abnormal menses, metrorrhagia, menorrhagia HgbA1C 5.7 Date 12/28/19 Patient No Lactating No Hx Drug Resistant Organism No Presence of External or Internal Medical No Devices Have you had any close contact with Unknown someone diagnosed with COVID-19? Marital Status Lives With spouse,friend(s) Patient Discharge Plan Description Return Home Do You Have Any Spiritual Beliefs That No May Affect Your HC Choices? Do You Have Any Cultural Practices That No May Affect Your HC Choices? Emergency Contact Name Mars Yeager (spouse) Advance Directives? No Power of Mammal Control Agent No
--- NOTE | 2020-03-22 13:54 | PC.NURSE ---
PAIN IMPROVED TO 5/10. STATES IS TOLERABLE. BP IMPROVED SINCE CUFF RE-ADJUSTED. BUT STILL SOME LOWER DIASTOLIC BP'S. CONTINUE TO MONITOR CLOSELY. DENIES NEED FOR ADDITIONAL MEDS AT THIS TIME. STATES HAS PASSED GAS TWICE THIS SHIFT. MD UPDATED ON BP AT 1320. MD REASSURED BY WBC NORMAL, CRIT STABLE, SLIGHTLY DILUTED, AFEBRILE, PASSING GAS. DOES WANT MOTRIN OR TYLENOL ALTERNATED Q 3 HRS. ORDERED VALIUM X1 FOR ANXIETY COMPONENT. WAITING TO GIVE AT THIS TIME R/T BP.
[2020-03-22] MEDS: ENOXAPARIN 40 MG/0.4 ML SYRINGE SUBCUT (14:52)
[2020-03-22] MEDS: LACTATED RINGERS 1,000 ML 200 ML IV (15:18)
--- NOTE | 2020-03-22 15:59 | PC.NURSE ---
Addendum entered by Sarah Felix R.N. 03/22/20 21:59: Able to doze intermittently. Moved self independently from bed to bathroom. Declines scd's overnight. Has refused valium. States spasms to back have improved. No vaginal bleeding or hematuria. Addendum entered by Sarah Felix R.N. 03/22/20 20:58: Pt on metformin. Blood sugar @ hs 146. Pt taking oral fluids and foods well with stable blood pressures this shift. Per Dr. Koroma verbal order, discontinued iv fluids. Heplock left in place right hand. Addendum entered by Sarah Felix R.N. 03/22/20 18:51: Declines offer for valium. Resting quietly in bed. Taking oral fluids and foods without difficulty. Addendum entered by Sarah Felix R.N. 03/22/20 18:14: Correction: IV fluids LR infusing @ 100 cc/hr to right hand iv site without difficulty. Verbal order per Dr. Koroma to decrease this rate. Addendum entered by Sarah Felix R.N. 03/22/20 17:36: Dr. Koroma updated on pt's condition. MD is present for evening rounds. Sees pt and examines pt's vital signs and pt's abdomen. Discussion with MD and pt re pain management. Plan is to discharge in a.m. 9/12. Pt taking diet well. IV fluids decreased to 100 cc/hs per MD. Original Note: Pt awake, alert resting quietly in bed with spouse present. Pt's spouse is very attentive, encouraging and involved in pt's care. Pt states needs to toilet and prefers to void in bathroom. BP > 90 systolic and pt admits to lightheadedness as baseline so this is not reliable indicator. Requires assistance to sit up @ side of bed. Able to stand and utilizes walker independently to bathroom. Able to void without difficulty. No vaginal bleeding on pad. No hematuria. Returns to bed and rates back pain and spasms and abdominal pain 7/10 (prior to mobilization). Tremulous, but admits to this as baseline only worse in hospital. Discussed with pt and pt's spouse accepting valium to treat back spasms. Pt states agreeable to this when spouse leaves for the evening. I.S. use encouraged and pt able to perform to almost 1999. Discussed abdominal splinting with pt and pt's spouse and pillow provided. Pt provides return demonstration. Pt currently denies nausea, and admits to passing flatus. Bowel tones are quiet @ this assessment.
--- NOTE | 2020-03-22 17:39 | PM.PN.1 ---
Subjective Subjective Date Patient Seen: 03/22/20 Time Patient Seen: 11:30 Interval history: This patient is POD#1 s/p laparoscopic supracervical hysterectomy and bilateral salpingectomy, with a history complicated by anxiety and panic disorders and chronic pelvic pain. The patient reports severe pain this AM, unable to have her incisions touched. She has ambulated and tolerated PO, passed flatus, and is currently undergoing a voiding trial with clear urine in the mahajan overnight. She takes propranolol 20mg BID for her anxiety, and very much desires this ordered this AM. Exam Vital Signs (past 8 hours): - 03/22/20 10:06 03/22/20 11:30 03/22/20 12:23 Temperature 98.4 F 98.2 F Pulse Rate 96 H 87 72 Respiratory Rate 20 19 18 Blood Pressure 121/76 121/49 L 112/50 L Pulse Oximetry 93 97 03/22/20 12:53 03/22/20 13:15 03/22/20 14:06 Temperature Pulse Rate 76 74 71 Respiratory Rate 16 Blood Pressure 105/40 L 122/61 89/51 L Pulse Oximetry 03/22/20 14:14 03/22/20 14:41 03/22/20 15:23 Temperature 98.0 F Pulse Rate 73 74 77 Respiratory Rate 19 Blood Pressure 103/63 109/66 106/58 L Pulse Oximetry 03/22/20 15:46 Temperature Pulse Rate 67 Respiratory Rate Blood Pressure 127/68 Pulse Oximetry Oxygen Delivery Method Room Air Oxygen Flow Rate 0 Const General: cooperative and anxious Resp Effort & Inspection: normal respiratory effort Auscultation: clear to auscultation bilaterally Cardio Rate: regular rate Rhythm: regular rhythm GI Inspection: incision (c/d/i, covered by bandages), large pannus and obesity Palpation: soft, guarding, No rigid and tender Skin General: no rashes or lesions noted Extrem General: normal to inspection Objective Labs Result Diagrams: 03/22/20 11:57 03/22/20 11:57 Labs: Laboratory Results - last 24 hr 03/22/20 03/22/20 03/22/20 04:47 11:57 11:57 WBC 10.7 9.7 RBC 3.87 L 3.61 L Hgb 11.0 L 10.4 L Hct 33.6 L 31.4 L MCV 86.8 87.0 MCH 28.4 28.8 MCHC 32.7 33.1 RDW 14.0 13.7 Plt Count 340 295 Neut % (Auto) 71.0 67.0 Lymph % (Auto) 20.8 L 25.2 [place] % (Auto) 7.7 6.3 Eos % (Auto) 0.2 L 1.3 L Baso % (Auto) 0.3 0.2 Neut # (Auto) 7600 H 6500 Lymph # (Auto) 2200 2400 [place] # (Auto) 800 600 Eos # (Auto) 0 100 Baso # (Auto) 0 0 Sodium 137 Potassium 3.3 L Chloride 101 Carbon Dioxide 25 BUN 7 Creatinine 0.55 Estimated GFR > 60.0 BUN/Creatinine Ratio 12.7 Glucose 179 H Calcium 8.6 Total Bilirubin 0.5 AST 23 ALT 21 Alkaline Phosphatase 47 Total Protein 6.2 L Albumin 3.7 Globulin 2.5 Albumin/Globulin Ratio 1.5 Assessment & Plan Assessment & Plan narrative: This patient is meeting most postoperative goals, but has poorly controlled pain on PO pain medications. She vocalizes significant anxiety about having pain in the future and about whether or not exams or activities will be painful before they happen, and it is unclear if she has an acute intraabdominal process or anxiety contributing to her pain. We discussed PO medications spaced per the ERAS protocol, with IV dilaudid for breakthrough. She will also receive simethicone, a fluid bolus as she is not taking in PO right now, and repeat labs. Close monitoring of vitals over the next few hours to assess for worsening clinical status along with lab results to guide decision making about imaging her abdomen. Quality VTE Deep Vein Thrombosis/Pulmonary Embolism Present on Admission: No
[2020-03-22] MEDS: PRAVASTATIN 20 MG TABLET PO (20:30)
[2020-03-22] MEDS: METFORMIN XR 500 MG TABLET PO (20:33)
[2020-03-22] MEDS: SODIUM CHLORIDE 0.9% FLUSH 10 ML IV (20:33)
[2020-03-22] MEDS: lamoTRIgine 100 MG TABLET 200 MG PO (20:35)
[2020-03-23 00:20] VITALS: BP 156/91; PULSE 65; RESP 14; TEMP 37.4; O2SAT 98
[2020-03-23] MEDS: HYDROMORPHONE 2 MG TABLET PO ×3 (00:21→10:57)
[2020-03-23] MEDS: IBUPROFEN 600 MG TABLET PO ×2 (03:43→10:57)
[2020-03-23 04:20] VITALS: BP 139/82; PULSE 64; RESP 14; O2SAT 98
[2020-03-23] MEDS: PANTOPRAZOLE 40 MG TABLET PO (05:35)
[2020-03-23] MEDS: ACETAMINOPHEN 325 MG TABLET 650 MG PO (05:35)
[2020-03-23 07:45] VITALS: PULSE 75; RESP 16; O2SAT 92
[2020-03-23 08:00] VITALS: BP 143/65; PULSE 73; RESP 16; TEMP 36.5; O2SAT 95
[2020-03-23] MEDS: DULOXETINE 30 MG CAPSULE 60 MG PO (08:32)
[2020-03-23] MEDS: DOCUSATE 250 MG CAPSULE PO (08:32)
[2020-03-23] MEDS: buPROPion XL 150 MG TAB 300 MG PO (08:32)
[2020-03-23] MEDS: hydroCHLOROthiazide 12.5 MG CAPSULE PO (08:32)
[2020-03-23] MEDS: lamoTRIgine 100 MG TABLET PO (08:32)
[2020-03-23] MEDS: SODIUM CHLORIDE 0.9% FLUSH 10 ML IV (08:33)
[2020-03-23] MEDS: VALSARTAN 80 MG TABLET PO (08:33)
[2020-03-23] MEDS: ENOXAPARIN 40 MG/0.4 ML SYRINGE SUBCUT (08:33)
[2020-03-23] MEDS: PROPRANOLOL 10 MG TABLET 20 MG PO (08:33)
--- NOTE | 2020-03-23 09:15 | PM.PN.1 ---
Subjective Subjective Date Patient Seen: 03/23/20 Time Patient Seen: 09:15 Interval history: Patient reports feeling well this AM Exam Vital Signs (past 8 hours): - 03/23/20 04:20 03/23/20 07:45 03/23/20 08:00 Temperature 97.7 F Pulse Rate 64 75 73 Respiratory Rate 14 16 16 Blood Pressure 139/82 143/65 H Pulse Oximetry 98 92 95 Oxygen Delivery Method Room Air Oxygen Flow Rate 0 Objective Labs Result Diagrams: 03/22/20 11:57 03/22/20 11:57 Labs: Laboratory Results - last 24 hr 03/22/20 03/22/20 11:57 11:57 WBC 9.7 RBC 3.61 L Hgb 10.4 L Hct 31.4 L MCV 87.0 MCH 28.8 MCHC 33.1 RDW 13.7 Plt Count 295 Neut % (Auto) 67.0 Lymph % (Auto) 25.2 [place] % (Auto) 6.3 Eos % (Auto) 1.3 L Baso % (Auto) 0.2 Neut # (Auto) 6500 Lymph # (Auto) 2400 [place] # (Auto) 600 Eos # (Auto) 100 Baso # (Auto) 0 Sodium 137 Potassium 3.3 L Chloride 101 Carbon Dioxide 25 BUN 7 Creatinine 0.55 Estimated GFR > 60.0 BUN/Creatinine Ratio 12.7 Glucose 179 H Calcium 8.6 Total Bilirubin 0.5 AST 23 ALT 21 Alkaline Phosphatase 47 Total Protein 6.2 L Albumin 3.7 Globulin 2.5 Albumin/Globulin Ratio 1.5 Quality VTE Deep Vein Thrombosis/Pulmonary Embolism Present on Admission: No
--- NOTE | 2020-03-23 09:17 | PM.DS.1 ---
History of Present Illness History of Present Illness Date Patient Seen: 03/23/20 Time Patient Seen: 08:45 Chief complaint: [facility] (?)BSO *OPB* Narrative: This patient was admitted after laparoscopic supracervical hysterectomy and bilateral salpingectomy. Her surgery was uncomplicated, but she struggled with pain control in the setting of multiple contributory comorbidities. She was discharged on POD#2 after meeting all postoperative goals appropriately, with an effective PO regimen. Discharge Providers Provider Date of admission: 03/22/20 13:00 Discharge Date: 03/23/20 Primary care physician: Gonzalez Chan DO Consults: 03/21/20 07:35 Consult to Respiratory Therapy Evaluate & Treat Comment: Physician Instructions: Evaluate and treat 03/21/20 08:26 Consult to Respiratory Therapy Evaluate & Treat Comment: ANAY no CPAP, s/p lap hysterectomy, BMI 47 Physician Instructions: Evaluate and treat Discharge provider: Enedelia Koroma MD Summary Hospital Course Discharge Diagnosis: s/p laparoscopic supracervical hysterectomy and bilateral salpingectomy Hospital Course: The patient had an uncomplicated hysterectomy, and remained admitted into POD#2 due to poor initial pain control on PO medication. Status at Discharge Cognitive/behavioral status at discharge: oriented Functional status at discharge: uses cane/walker Overall status at discharge: patient is progressing back to baseline Time Spent with Patient Time spent: Less than 30 minutes Exam Vital Signs (past 8 hours): - 03/23/20 04:20 03/23/20 07:45 03/23/20 08:00 Temperature 97.7 F Pulse Rate 64 75 73 Respiratory Rate 14 16 16 Blood Pressure 139/82 143/65 H Pulse Oximetry 98 92 95 Oxygen Delivery Method Room Air Oxygen Flow Rate 0 Const General: cooperative, healthy appearing and comfortable Nutritional Appearance: obese Resp Effort & Inspection: normal respiratory effort Auscultation: clear to auscultation bilaterally Cardio Rate: regular rate Rhythm: regular rhythm GI Inspection: incision (c/d/i) Palpation: soft and No tender Skin General: no rashes or lesions noted Extrem General: normal to inspection Objective Labs Result Diagrams: 03/22/20 11:57 03/22/20 11:57 Labs: Laboratory Results - last 24 hr 03/22/20 03/22/20 11:57 11:57 WBC 9.7 RBC 3.61 L Hgb 10.4 L Hct 31.4 L MCV 87.0 MCH 28.8 MCHC 33.1 RDW 13.7 Plt Count 295 Neut % (Auto) 67.0 Lymph % (Auto) 25.2 [place] % (Auto) 6.3 Eos % (Auto) 1.3 L Baso % (Auto) 0.2 Neut # (Auto) 6500 Lymph # (Auto) 2400 [place] # (Auto) 600 Eos # (Auto) 100 Baso # (Auto) 0 Sodium 137 Potassium 3.3 L Chloride 101 Carbon Dioxide 25 BUN 7 Creatinine 0.55 Estimated GFR > 60.0 BUN/Creatinine Ratio 12.7 Glucose 179 H Calcium 8.6 Total Bilirubin 0.5 AST 23 ALT 21 Alkaline Phosphatase 47 Total Protein 6.2 L Albumin 3.7 Globulin 2.5 Albumin/Globulin Ratio 1.5 Discharge Assessment & Plan Assessment and Plan Assessment: Patient is recovering appropriately with improved pain control. Plan of Treatment: Home with routine postoperative care. Discharge Plan Discharge Plan Patient Disposition: Home Discharge comment: Call with fever, chills, redness or drainage around incisions or bleeding vaginally more than light Ibuprofen 600mg every 6 hours Tylenol 650mg every 6 hours Discharge orders & Medications Prescriptions: New hydromorphone [Dilaudid] 2 mg tablet 2 mg PO Q4H Qty: 30 RF: 0 Continued omeprazole 40 mg capsule,delayed release(DR/EC) 40 mg PO DAILY RF: 0 duloxetine 60 mg capsule,delayed release(DR/EC) 60 mg PO BID Qty: 60 RF: 5 bupropion HCl 300 mg tablet extended release 24 hr 300 mg PO QAM Qty: 30 RF: 5 propranolol 20 mg tablet 20 mg PO BID Qty: 60 RF: 5 tizanidine 4 mg capsule 4 mg PO BEDTIME PRN (Reason: muscle spasticity) Qty: 30 RF: 5 lamotrigine 100 mg tablet See Rx Instructions PO QPM Qty: 90 RF: 5 prazosin 1 mg capsule 3 mg PO QPM Qty: 90 RF: 3 pravastatin 20 mg tablet 20 mg PO BEDTIME Qty: 90 RF: 3 metformin 500 mg tablet extended release 24 hr 500 mg PO DAILY RF: 0 valsartan-hydrochlorothiazide 80-12.5 mg tablet 1 tab PO DAILY RF: 0 Centrum 50 1 tab PO DAILY RF: 0 lysine 1 tab PO DAILY RF: 0 Follow up/Referrals: Alexa Mckeon MD [Physician] - 2 Weeks Gonzalez Chan DO [Primary Care Provider] - Diet/Activity/Treatments Diet: Regular Activity: No heavy lifting. No intercourse Skin/Wound/Dressing Care Report to your healthcare provider any signs of infection, such as:: chills, fever, increased pain, unusual drainage and unusual redness Dressing: Remove outer plastic dressings and guaze after first shower Visit Report/Discharge Packet Instructions: DI for Hysterectomy, DI for Laparoscopy, DI for Prescription Opioid Use, Hydromorphone Stand Alone Forms: Surgery Discharge Visit Report Forms: Patient Portal/API, Stroke Signs & Symptoms Discharge Data Primary Care Provider: Gonzalez Chan Quality VTE Deep Vein Thrombosis/Pulmonary Embolism Present on Admission: No
--- NOTE | 2020-03-23 11:15 | PC.NURSE ---
Discharge teaching done for patient regarding 2mg of Dilaudid Q2, Ibuprofen 6 and Tylenol Q6 rotation. Patient was taught about the signs and symptoms of infection, bandages and showering, diet as tolerated, and lifting restrictions. Patient and acknowledged and verbalized understanding to patient teaching. Medications were electronically submitted to [facility] in [place] by Dr. Koroma.
== END 2020-03-23 11:01 | disposition home or self-care (01) ==
LOC: OR 16:00 → AC 16:09
PROVIDERS: Admitting Provider Obstetrics & Gynecology; PCP Family Medicine; Referring Provider Family Medicine; Visit Provider Obstetrics & Gynecology
PROC: 0UT94ZL Resection of Uterus, Supracervical, Percutaneous Endoscopic Approach (ICD-10-PCS; CPT 58542; principal; 2020-03-21 07:45)
DX: D25.2 Subserosal leiomyoma of uterus (principal); N80.9 Endometriosis, unspecified; G47.33 Obstructive sleep apnea (adult) (pediatric); E28.2 Polycystic ovarian syndrome; I10 Essential (primary) hypertension; F41.9 Anxiety disorder, unspecified; F32.9 Major depressive disorder, single episode, unspecified
CPT/HCPCS: 58542; 36415; 80053; 85025; 94760; G0378; J0131; J0690; J1100; J1170; J1650; J1885; J2250; J2405; J2704; J2795; J3010

== ENCOUNTER → 2020-04-25 16:29 | Outpatient (CLI) | payer OTHER, SELFPAY ==
[2020-03-21 11:43] VITALS: BMI 46.8
[2020-04-29 13:06] LABS: Lamotrigine Lamictal 2.9 ug/mL (2.0-20.0)
== END ==
PROVIDERS: PCP Family Medicine; Referring Provider Psychiatry & Neurology Psychiatry; Visit Provider Psychiatry & Neurology Psychiatry
DX: F33.2 Major depressive disorder, recurrent severe without psychotic features (principal); F41.0 Panic disorder [episodic paroxysmal anxiety]; F43.12 Post-traumatic stress disorder, chronic; G47.00 Insomnia, unspecified
CPT/HCPCS: 36415; 80175; 99214

== ENCOUNTER → 2020-04-29 11:52 | Outpatient (CLI) | payer OTHER, SELFPAY ==
[2020-03-21 11:43] VITALS: BMI 46.8
[2020-04-29 12:43] LABS: Add Manual Diff / Slide Review NO; Basophils Absolute Auto 0 /uL (0-100); Basophils Percent Auto 0.3 % (0-2); Eosinophils Absolute Auto 200 /uL (0-450); Eosinophils Percent Auto 2.6 % (2-4); Hemoglobin 12.6 g/dL (12.0-16.0); Lymphocytes Absolute Auto 2500 /uL (1100-4500); Lymphocytes Percent Auto 32.8 % (25-40); Mean Corpuscular HGB Conc 33.9 % (30-36); Mean Corpuscular Hemoglobin 29.4 PG (26-34); Mean Corpuscular Volume 86.7 fL (80-100); Monocytes Absolute Auto 600 /uL (0-900); Monocytes Percent Auto 7.6 % (3-14); Neutrophils Absolute Auto 4300 /uL (1500-7000); Neutrophils Percent Auto 56.7 % (50-75); Platelet Count 370 X10^3/uL (150-400); Red Blood Cell Count 4.27 X10^6/uL (4.0-5.2); White Blood Cell Count 7.5 X10^3/uL (4.5-11.0)
[2020-04-29 13:14] LABS: Alanine Aminotransferase 28 IU/L (<35); Albumin 4.5 g/dL (3.5-5.0); Albumin Globulin Ratio 1.6 (1.0-2.8); Alkaline Phosphatase 56 U/L (38-126); Aspartate Aminotransferase 25 IU/L (14-36); BUN Creatinine Ratio 12.9 (6-22); Bilirubin Total 0.4 mg/dL (0.2-1.3); Blood Urea Nitrogen 8 mg/dL (7-17); Calcium 9.7 mg/dL (8.4-10.2); Carbon Dioxide 27 mmol/L (22-32); Chloride 105 mmol/L (98-107); Cholesterol 266 mg/dL (140-199); Estimated Glomerular Filt Rate > 60.0 mL/min (>60); Globulin 2.9 g/dL (1.7-4.1); Glucose 104 mg/dL (70-100); HDL Cholesterol 69 mg/dL (40-60); HEMOLYSIS < 15 (0-50); Iron 88 ug/dL (37-170); LDL Cholesterol Calculated 143 mg/dL (<100); Potassium 4.8 mmol/L (3.4-5.1); Sodium 139 mmol/L (137-145); Total Protein 7.4 g/dL (6.3-8.2); Triglycerides 271 mg/dL (35-150)
[2020-04-29 13:25] LABS: Percent Iron Saturation 25 % (15-50); Total Iron Binding Capacity 353 ug/dL (265-497); Transferrin 316 mg/dL (206-381)
[2020-04-29 14:03] LABS: Vitamin B12 265 pg/mL (239-931)
[2020-04-29 14:24] LABS: Creatinine Urine Random 47.6 mg/dL
[2020-04-29 14:30] LABS: Microalbumin Urine Random < 0.6 mg/dL (0-1.6)
[2020-04-29 15:15] LABS: Hemoglobin A1C% w Est Avg Glu 5.8 % (4.0-6.0)
== END ==
PROVIDERS: PCP Family Medicine; Referring Provider Family Medicine; Visit Provider Family Medicine
DX: D64.9 Anemia, unspecified (principal); E78.5 Hyperlipidemia, unspecified; I10 Essential (primary) hypertension; R53.83 Other fatigue; R55 Syncope and collapse; R73.03 Prediabetes
CPT/HCPCS: 36415; 80053; 80061; 82043; 82570; 82607; 83036; 83540; 83550; 85025

== ENCOUNTER → 2020-05-30 09:54 | Outpatient (CLI) | payer OTHER, SELFPAY ==
[2020-03-21 11:43] VITALS: BMI 46.8
--- NOTE | 2020-05-30 09:57 | DI.CT.S_ITS ---
PROCEDURE: CT HEAD/BRAIN WO CON INDICATIONS: Syncope and collapse TECHNIQUE: Noncontrast 4.5 mm thick angled axial sections acquired from the foramen magnum to the vertex, with coronal and sagittal reformats. For radiation dose reduction, the following was used: automated exposure control, adjustment of mA and/or kV according to patient size. COMPARISON: None. FINDINGS: Image quality: Excellent. CSF spaces: Basal cisterns are patent. No extra-axial fluid collections. Ventricles are normal in size and shape. Brain: No midline shift. No intracranial masses or hemorrhage. Ramirez-white matter interface is normal. Skull and face: Calvarium and visualized facial bones are intact, without suspicious lesions. Hyperostosis frontalis can be seen. Sinuses: Visualized sinuses and mastoids are clear. IMPRESSION: Unremarkable intracranial study, without an imaging explanation found for this patient's presenting symptoms. Dictated by: Rajesh Ventura M.D. on 05/30/2020 at 9:20 Approved by: Rajesh Ventura M.D. on 05/30/2020 at 9:21
== END ==
PROVIDERS: PCP Family Medicine; Referring Provider Family Medicine; Visit Provider Family Medicine
DX: R55 Syncope and collapse (principal)
CPT/HCPCS: 70450

== ENCOUNTER → 2020-09-11 10:43 | Outpatient (CLI) | payer OTHER, SELFPAY ==
[2020-03-21 11:43] VITALS: BMI 46.8
--- NOTE | 2020-09-11 10:53 | DI.CT.S_ITS ---
PROCEDURE: CT ABDOMEN PELVIS WO/W CON INDICATIONS: hematuria TECHNIQUE: Optional 5 mm thick noncontrast images acquired from the diaphragm to the symphysis pubis. After the administration of intravenous contrast, 5 mm thick images acquired from the diaphragm to the symphysis pubis after a 10-minute delay. 2 mm thick coronal and sagittal reformats were then performed of the kidneys and ureters. For radiation dose reduction, the following was used: automated exposure control, adjustment of mA and/or kV according to patient size. COMPARISON: [facility], CT, CT ABDOMEN PELVIS W CON, 08/11/2019, 13:55. FINDINGS: Image quality: Excellent. Lung bases: Lung bases are clear. Heart size is normal. Small hiatal hernia. Urinary system: Both kidneys are normal in size, without hydronephrosis or nephrolithiasis on pre-contrast images. No perinephric fat stranding. There is normal bilateral renal enhancement. Renal calyces appear normal in morphology when filled with contrast. Opacified portions of both ureters demonstrate normal caliber. No filling defect within the opacified portions of the ureters. The distal ureters are not well opacified. Bladder wall thickness is normal. No calcified bladder stones. Other solid organs: Liver is normal in size. Hepatic steatosis. Gallbladder is unremarkable. Biliary system is non dilated. Pancreas enhances normally. Spleen is normal in size and enhancement. No adrenal nodules. Peritoneum and bowel: Bowel loops demonstrate normal wall thickness and caliber. Normal appendix. No free fluid or air. Nodes and vessels: No retroperitoneal or mesenteric adenopathy by size criteria. Aorta and inferior vena cava are normal in size. Abdominal wall: No ventral hernias. Pelvis: No pathologic free pelvic fluid. No inguinal hernias or adenopathy. Small left ovarian cyst measuring at 2.3 cm, (194). Uterus is absent. Bones: No suspicious bony lesions. No vertebral body compression fractures. IMPRESSION: 1. No upper urinary tract filling defect within the opacified portions of the ureters. The distal ureters are not well opacified. 2. No solid renal mass. 3. No kidney stones. 4. Hepatic steatosis. Dictated by: Neymar Sosa M.D. on 09/11/2020 at 13:43 Approved by: Neymar Sosa M.D. on 09/11/2020 at 13:50
== END ==
PROVIDERS: PCP Family Medicine; Referring Provider Specialist; Visit Provider Specialist
DX: R31.9 Hematuria, unspecified (principal); R39.89 Other symptoms and signs involving the genitourinary system; K76.0 Fatty (change of) liver, not elsewhere classified
CPT/HCPCS: 74178; Q9967

== ENCOUNTER → 2020-09-27 13:08 | Outpatient (CLI) | payer OTHER, SELFPAY ==
[2020-03-21 11:43] VITALS: BMI 46.8
[2020-09-27 13:45] LABS: COVID19 -Nasal RAPID Negative (Negative)
== END ==
PROVIDERS: PCP Family Medicine; Visit Provider Specialist
DX: Z20.822 Contact with and (suspected) exposure to COVID-19 (principal)
CPT/HCPCS: 87635; C9803

== ENCOUNTER 2020-09-30 06:11 | Day surgery (SDC) | payer OTHER, SELFPAY ==
[2020-03-21 11:43] VITALS: BMI 46.8
[2020-09-30] VITALS (10 sets, daily range): BP systolic 121–158; BP diastolic 61–98; PULSE 66–87; RESP 12–20; TEMP 36.2–37.4; O2SAT 92–99; BMI 45.0
[2020-09-30] MEDS: LACTATED RINGERS 1,000 ML 42 ML IV (07:25)
--- NOTE | 2020-09-30 07:25 | PM.PREOP ---
Pre-operative Note Interval Note History & Physical reviewed/Exam performed by Physician: Yes Changes to H&P: No
[2020-09-30] MEDS: CEFAZOLIN VIAL 3 GM in SODIUM CHLORIDE 0.9% 100 ML 200 ML IV (07:58)
--- NOTE | 2020-09-30 08:14 | SUR.OPER ---
Lithotomy on padded OR bed, head on pillow, arms secured on padded arm boards at <90 degrees abduction. Legs secured in padded yellow fins stirrups.
--- NOTE | 2020-09-30 08:22 | PM.OP.1 ---
Operative Date/Time/Diagnoses Date of procedure: 09/30/20 Time of procedure: 08:23 Pre-op diagnosis: Bladder pain Post-op diagnosis: same Procedure & Clinicians Procedure: 1. Cystoscopy and hydrodistention. 2. Cystoscopy and installation DMSO (50 cc). Same procedure as scheduled: Yes Indications: 1. Bladder pain Surgeon: Anup Gaviria Click Yes if Unassisted: Yes Anesthesia Type: General Operative Notes Findings: 1. Urethra-mildly stenotic with approximately 18 [place] caliber. Calibrated to 22 [place]. 2. Bladder-capacity under anesthesia was 800 cc. Very few petechiae were visualized following 2 minutes hydrodistention at bladder capacity. Closure Type: not applicable Specimen(s): none sent Estimated Blood Loss (mL): 0 Procedure in detail: Patient was positioned supine and administered general anesthesia. She was then repositioned semi lithotomy and the lower abdomen, genitalia, and groin were prepped and draped in sterile fashion. The 22 [place] panendoscope was then gently passed in lower urinary tract with the obturator in place. It was then fitted with the operative lens. Urothelium appeared normal on initial inspection. Ureteral orifices were normal position bilaterally with clear efflux urine. The bladder was then allowed to fill by gravity until capacity was attained. The volume was retained for 2 minutes. The bladder was then drained completely with the above-noted bladder capacity under anesthesia. Reinspection of the bladder revealed findings as described above. The bladder was then drained a final time, and 50 cc of DMSO were instilled in the bladder and the panendoscope was removed. The patient was then repositioned in supine, was awakened, and [facility]. Complications: none Post-operative Condition: stable Disposition: PACU Plan for aftercare: Discharge home
[2020-09-30] MEDS: DIMETHYL SULFOXIDE 120 ML LIQUID 50 ML URE (08:42)
[2020-09-30] MEDS: BELLADONNA/OPIUM SUPPOSITORIES 1 EACH PR (08:42)
[2020-09-30] MEDS: ACETAMINOPHEN 325 MG TABLET 650 MG PO (09:27)
[2020-09-30] MEDS: OXYCODONE IR 5 MG TABLET PO (09:28)
--- NOTE | 2020-09-30 09:28 | SUR.PHASEII ---
Medicated for pain in back and urethral. Crackers and fluid given prior to Rx.
== END 2020-09-30 09:46 | disposition home or self-care (01) ==
PROVIDERS: PCP Family Medicine; Referring Provider Family Medicine; Visit Provider Specialist
PROC: 3E1K78Z Irrigation of Genitourinary Tract using Irrigating Substance, Via Natural or Artificial Opening (ICD-10-PCS; CPT 51700; principal; 2020-09-30 07:45)
DX: R39.89 Other symptoms and signs involving the genitourinary system (principal); E66.01 Morbid (severe) obesity due to excess calories; Z68.42 Body mass index [BMI] 45.0-49.9, adult
CPT/HCPCS: 52000; 52260; J0690; J1212; J1885; J2250; J2405; J2704; J3010

== ENCOUNTER 2020-10-01 16:05 | Emergency (ER) | payer OTHER, SELFPAY ==
[2020-03-21 11:43] VITALS: BMI 46.8
[2020-10-01 16:09] VITALS: BP 154/96; PULSE 93; RESP 18; O2SAT 98; BMI 45.3
[2020-10-01] MEDS: ONDANSETRON 4 MG/2 ML INJ IV (16:53)
[2020-10-01] MEDS: MORPHINE 4 MG/ML INJ IV (16:53)
[2020-10-01] MEDS: SODIUM CHLORIDE 0.9% 1,000 ML 1000 ML IV (16:53)
[2020-10-01 17:18] LABS: Add Manual Diff / Slide Review NO; Basophils Absolute Auto 0 /uL (0-100); Basophils Percent Auto 0.4 % (0-2); Eosinophils Absolute Auto 200 /uL (0-450); Eosinophils Percent Auto 2.2 % (2-4); Hematocrit 38.2 % (36-46); Hemoglobin 12.7 g/dL (12.0-16.0); Lymphocytes Absolute Auto 2000 /uL (1100-4500); Lymphocytes Percent Auto 21.7 % (25-40); Mean Corpuscular HGB Conc 33.2 % (30-36); Mean Corpuscular Volume 87.4 fL (80-100); Monocytes Absolute Auto 800 /uL (0-900); Monocytes Percent Auto 8.5 % (3-14); Neutrophils Absolute Auto 6300 /uL (1500-7000); Neutrophils Percent Auto 67.2 % (50-75); Platelet Count 358 X10^3/uL (150-400); Red Blood Cell Count 4.37 X10^6/uL (4.0-5.2); White Blood Cell Count 9.4 X10^3/uL (4.5-11.0)
[2020-10-01 17:31] LABS: Alanine Aminotransferase 15 IU/L (<35); Albumin 4.3 g/dL (3.5-5.0); Albumin Globulin Ratio 1.5 (1.0-2.8); Alkaline Phosphatase 55 U/L (38-126); Aspartate Aminotransferase 20 IU/L (14-36); BUN Creatinine Ratio 18.5 (6-22); Bilirubin Total 0.4 mg/dL (0.2-1.3); Blood Urea Nitrogen 12 mg/dL (7-17); Calcium 9.8 mg/dL (8.4-10.2); Carbon Dioxide 25 mmol/L (22-32); Chloride 104 mmol/L (98-107); Estimated Glomerular Filt Rate > 60.0 mL/min (>60); Globulin 2.8 g/dL (1.7-4.1); Glucose 114 mg/dL (70-100); HEMOLYSIS < 15 (0-50); Lactate (Lactic Acid) 1.3 mmol/L (0.7-2.1); Sodium 137 mmol/L (137-145); Total Protein 7.1 g/dL (6.3-8.2)
--- NOTE | 2020-10-01 17:38 | DI.CT.S_ITS ---
PROCEDURE: CT ABDOMEN PELVIS W CON INDICATIONS: flank pain, abd pain, cystoscopy yesterday TECHNIQUE: After the administration of intravenous contrast, 5 mm thick sections acquired from the diaphragm to the symphysis. 5 mm coronal and sagittal reformats were acquired. For radiation dose reduction, the following was used: automated exposure control, adjustment of mA and/or kV according to patient size. COMPARISON: [facility], CT, CT ABDOMEN PELVIS W CON, 08/11/2019, 13:55. [facility], CT, CT ABDOMEN PELVIS WO/W CON, 09/11/2020, 10:49. FINDINGS: Image quality: Excellent. ABDOMEN: Lung bases: Lung bases are clear. Heart size is normal. Solid organs: Liver is normal in size and enhancement. Diffuse fatty infiltration of the liver. Gallbladder is normal. Biliary system is non dilated. Pancreas enhances normally. Spleen is normal in size and enhancement. No adrenal nodules. Kidneys demonstrate normal size and enhancement, without hydronephrosis. Peritoneum and bowel: Bowel loops demonstrate normal wall thickness and caliber. Moderate amount of stool noted in the right and transverse colon. No free fluid or air. Appendix is normal. Nodes and vessels: No retroperitoneal or mesenteric adenopathy by size criteria. Aorta and inferior vena cava are normal in size. Miscellaneous: No ventral hernias. PELVIS: Genitourinary: Urinary bladder wall is thickened. Inflammatory changes and trace fluid noted adjacent to the urinary bladder. Uterus is absent or atrophied. Miscellaneous: No inguinal hernias or adenopathy. Bones: No suspicious bony lesions. No vertebral body compression fractures. IMPRESSION: 1. Diffuse urinary bladder wall thickening with inflammatory stranding in the fat adjacent urinary bladder. Findings compatible with nonspecific cystitis. Recommend correlation with urinalysis data to exclude infectious cystitis. 2. No hydronephrosis. 3. Moderate fecal loading involving the right and transverse colon. Please correlate with clinical data to exclude constipation. 4. Appendix is normal. Dictated by: Susie Logan MD, PhD on 10/01/2020 at 18:08 Approved by: Susie Logan MD, PhD on 10/01/2020 at 18:12
[2020-10-01 17:41] LABS: Bacteria Urine None Seen
[2020-10-01 17:49] LABS: Culture Indicated Urine Specimen Cultured; RBC Urine >100/HPF (0-5/HPF); Squamous Epithelial Cell Urine 1-5 /HPF (0-5/HPF); WBC Urine 10-30/HPF (0-5/HPF)
[2020-10-01] MEDS: PHENAZOPYRIDINE 100 MG TABLET 200 MG PO (18:47)
[2020-10-01] MEDS: TRAMADOL 50 MG TABLET 100 MG PO (18:48)
--- NOTE | 2020-10-01 19:21 | ED.FEMALEGU ---
HPI - Female Genitourinary <Rach Mittal, EYELET MAKER-BC - Last Filed: 10/01/20 19:27> General Chief complaint: Urogenital-Female Stated complaint: pain, blood clots, frequent urination s/p surgery Time Seen by Provider: 10/01/20 16:19 Source: patient and family Mode of arrival: Ambulatory Limitations: no limitations History of Present Illness HPI Narrative: The patient is a 40-year-old female nonsmoker with history of cystitis who presents with her for chief complaint of profuse hematuria, lower abdominal pain, flank pain, rigors and general malaise since being discharged from her cystoscopy yesterday. This was done by Dr. Gaviria at [facility]. She states that she has had profuse dysuria, hematuria and that she is? excruciating pain. She notes that she was taking oxycodone 5 mg tablets, was recently took 1 about 6 hours ago because she was ?hoping to get something better in the emergency department. She states that she has bilateral flank pain, denies any fevers. She states she has not had anything to eat or drink since yesterday. She states that she has reached out to his office, but did not hear back soon enough so she came to the emergency department. Related Data Home Medications Medication Instructions Recorded Confirmed Centrum 50 1 tab PO DAILY 08/11/19 09/30/20 lysine [L-Lysine] 500 mg PO DAILY #0 08/11/19 09/30/20 metformin 500 mg PO QPM 09/30/20 09/30/20 Previous Rx's Medication Instructions Recorded pravastatin 20 mg tablet 20 mg PO BEDTIME #90 tab 12/26/19 bupropion HCl 300 mg 24 hr tablet, 300 mg PO QAM #30 tab 04/25/20 extended release clonazepam 0.5 mg tablet 0.5 mg PO BID PRN #20 tab 04/25/20 duloxetine 60 mg capsule,delayed 60 mg PO BID #60 cap 04/25/20 release propranolol 20 mg tablet 20 mg PO BID #60 tab 04/25/20 tizanidine 4 mg capsule 4 mg PO BEDTIME PRN #30 cap 06/14/20 valsartan 80 1 tab PO DAILY #90 tab 08/13/20 mg-hydrochlorothiazide 12.5 mg tablet lamotrigine 100 mg tablet See Rx Instructions .ROUTE 09/30/20 .COMPLEX #90 tab oxycodone 5 mg PO Q4H PRN #10 tab 09/30/20 prazosin 1 mg capsule See Rx Instructions .ROUTE 09/30/20 .COMPLEX #90 cap tramadol 100 mg tablet 100 mg PO Q6H PRN #14 tab 10/01/20 Allergies Allergy/AdvReac Type Severity Reaction Status Date / Time amoxicillin Allergy Intermediate rash Verified 09/30/20 07:26 codeine Allergy Intermediate Vomiting, Verified 09/30/20 07:26 passes out latex Allergy Rash Verified 09/30/20 07:26 Review of Systems <JEREMY Park- - Last Filed: 10/01/20 19:27> Review of Systems Narrative: GENERAL: Denies chills, fatigue, malaise, fever, sweats. HEENT: Denies sinus pain, ear pain, sore throat, difficulty swallowing, dizziness. RESPIRATORY: Denies dyspnea, cough, wheezing, hemoptysis, sputum. CARDIOVASCULAR: Denies chest pain, palpitations, orthopnea, edema, GASTROINTESTINAL: See HPI : See HPI MUSCULOSKELETAL: denies weakness, joint pain, or bony pain SKIN: Denies rash, skin lesions, or other NEUROLOGIC: Denies weakness, headache, numbness, change in speech, confusion, seizures, incoordination. PSYCHIATRIC: No concerning psychosocial issues. 12 point review of systems is negative except for those stated above Patient History <JEREMY Park- - Last Filed: 10/01/20 19:27> Medical History Anxiety Bladder pain Depression Dizziness Endometriosis Fibromyalgia History of UTI Hyperlipidemia Hypertelorism Hypertension Interstitial cystitis Microscopic hematuria Migraine PCOS (polycystic ovarian syndrome) Post traumatic stress disorder (PTSD) PTSD (post-traumatic stress disorder) UTI (urinary tract infection) Surgical History H/O left wrist surgery History of tonsillectomy Hx of abdominal hysterectomy Hx of laparoscopy (~2002) S/P lumpectomy, right breast [place] teeth extracted Family History Grandmother Cancer Hyperlipidemia Hypertension Grandfather Diabetes mellitus Mother Interstitial cystitis Migraines Thyroid disorder UTI (urinary tract infection) Meniere disease Fibromyalgia Endometriosis Substance Use Type: does not use Exam <CHELLY Park - Last Filed: 10/01/20 19:27> Narrative Exam Narrative: GENERAL: This is a well-nourished, well-developed patient, in mild distress and teary HEAD: Atraumatic. Normocephalic. No temporal or scalp tenderness. EYES: Pupils equal round and reactive. Extraocular motions intact. No scleral icterus. No injection or drainage. ENT: Nose without bleeding, purulent drainage or septal hematoma. Wearing a mask Airway patent. NECK: Trachea midline. No JVD or lymphadenopathy. Supple, nontender, no meningeal signs. CARDIOVASCULAR: Regular rate and rhythm RESPIRATORY: Clear to auscultation. Breath sounds equal bilaterally. No wheezes, rales, or rhonchi. Cough. No increased respiratory effort. No accessory muscle use. GASTROINTESTINAL: Abdomen soft, though suprapubic tenderness to palpation with guarding, nondistended. No hepato-splenomegaly, or palpable masses. Active bowel sounds all 4 quadrants EXTREMITIES: No clubbing, cyanosis, or edema. No joint tenderness, effusion, or edema noted. BACK: Nontender without deformity or crepitance. CVA tenderness noted bilaterally NEURO: AOx3. SKIN: No rash or erythema on visible skin Initial Vital Signs Initial Vital Signs: Vital Signs Pulse Rate 93 H 10/01/20 16:09 Respiratory Rate 18 10/01/20 16:09 Blood Pressure 154/96 H 10/01/20 16:09 Pulse Oximetry 98 10/01/20 16:09 <Aniya Irwin DO - Last Filed: 10/01/20 19:30> Initial Vital Signs Initial Vital Signs: Vital Signs Pulse Rate 93 H 10/01/20 16:09 Respiratory Rate 18 10/01/20 16:09 Blood Pressure 154/96 H 10/01/20 16:09 Pulse Oximetry 98 10/01/20 16:09 Scores <CHELLY Park - Last Filed: 10/01/20 19:27> GCS [place] coma scale eye opening: Spontaneous Parv[place] coma scale verbal response: Orientated [place] coma scale motor response: Obey commands [place] coma scale total score: 15 Course <CHELLY Park - Last Filed: 10/01/20 19:27> Orders Ordered: ED Orders 10/01/20 16:58 Complete Blood Count AUTO DIFF Stat Comprehensive Metabolic Panel Stat Lactate (Lactic Acid) Stat 10/01/20 17:27 Urine Culture Stat Urine Microscopic Stat 10/01/20 17:38 CT abdomen pelvis w con Stat Discontinued Medications Sodium Chloride (Normal Saline 0.9%) 1,000 mls @ 1,000 mls/hr IV BOLUS ONE Stop: 10/01/20 17:35 Last Infusion: 10/01/20 18:03 Dose: 0 mls/hr Documented by: Admin: 10/01/20 16:53 Dose: 1,000 mls/hr Documented by: ABNER Morphine Sulfate (Morphine 4 Mg/Ml Inj) 4 mg IV NOW ONE Stop: 10/01/20 16:37 Last Admin: 10/01/20 16:53 Dose: 4 mg Documented by: ABNER Ondansetron HCl (Ondansetron 4 Mg/2 Ml Inj) 4 mg IV NOW ONE Stop: 10/01/20 16:37 Last Admin: 10/01/20 16:53 Dose: 4 mg Documented by: ABNER Phenazopyridine HCl (Phenazopyridine 100 Mg Tablet) 200 mg PO NOW ONE Stop: 10/01/20 18:41 Last Admin: 10/01/20 18:47 Dose: 200 mg Documented by: ANGELIQUE Tramadol HCl (Tramadol 50 Mg Tablet) 100 mg PO NOW ONE Stop: 10/01/20 18:41 Last Admin: 10/01/20 18:48 Dose: 100 mg Documented by: ANGELIQUE Vital Signs Vital signs: Vital Signs - 8 hr 10/01/20 16:09 10/01/20 19:25 Pulse Rate 93 H 83 Respiratory Rate 18 18 Blood Pressure 154/96 H 140/81 Pulse Oximetry 98 97 <Aniya Irwin DO - Last Filed: 10/01/20 19:30> Orders Ordered: ED Orders 10/01/20 16:58 Complete Blood Count AUTO DIFF Stat Comprehensive Metabolic Panel Stat Lactate (Lactic Acid) Stat 10/01/20 17:27 Urine Culture Stat Urine Microscopic Stat 10/01/20 17:38 CT abdomen pelvis w con Stat Discontinued Medications Sodium Chloride (Normal Saline 0.9%) 1,000 mls @ 1,000 mls/hr IV BOLUS ONE Stop: 10/01/20 17:35 Last Infusion: 10/01/20 18:03 Dose: 0 mls/hr Documented by: Admin: 10/01/20 16:53 Dose: 1,000 mls/hr Documented by: ABNER Morphine Sulfate (Morphine 4 Mg/Ml Inj) 4 mg IV NOW ONE Stop: 10/01/20 16:37 Last Admin: 10/01/20 16:53 Dose: 4 mg Documented by: ABNER Ondansetron HCl (Ondansetron 4 Mg/2 Ml Inj) 4 mg IV NOW ONE Stop: 10/01/20 16:37 Last Admin: 10/01/20 16:53 Dose: 4 mg Documented by: ABNER Phenazopyridine HCl (Phenazopyridine 100 Mg Tablet) 200 mg PO NOW ONE Stop: 10/01/20 18:41 Last Admin: 10/01/20 18:47 Dose: 200 mg Documented by: ANGLEIQUE Tramadol HCl (Tramadol 50 Mg Tablet) 100 mg PO NOW ONE Stop: 10/01/20 18:41 Last Admin: 10/01/20 18:48 Dose: 100 mg Documented by: ANGELIQUE Vital Signs Vital signs: Vital Signs - 8 hr 10/01/20 16:09 10/01/20 19:25 Pulse Rate 93 H 83 Respiratory Rate 18 18 Blood Pressure 154/96 H 140/81 Pulse Oximetry 98 97 MDM - Female Genitourinary <JEREMY Park- - Last Filed: 10/01/20 19:27> Lab Data Attestation: I reviewed the patient's lab results. Result diagrams: 10/01/20 16:58 10/01/20 16:58 Labs: Lab Results 10/01/20 10/01/20 10/01/20 Range/Units 16:58 16:58 16:58 WBC 9.4 (4.5-11.0) X10^3/uL RBC 4.37 (4.0-5.2) X10^6/uL Hgb 12.7 (12.0-16.0) g/dL Hct 38.2 (36-46) % MCV 87.4 (80-100) fL MCH 29.0 (26-34) PG MCHC 33.2 (30-36) % RDW 14.0 (11.6-14.8) % Plt Count 358 (150-400) X10^3/uL Neut % (Auto) 67.2 (50-75) % Lymph % (Auto) 21.7 L (25-40) % Andrew % (Auto) 8.5 (3-14) % Eos % (Auto) 2.2 (2-4) % Baso % (Auto) 0.4 (0-2) % Neut # (Auto) 6300 (0548-7569) /uL Lymph # (Auto) 2000 (6123-5534) /uL Andrew # (Auto) 800 (0-900) /uL Eos # (Auto) 200 (0-450) /uL Baso # (Auto) 0 (0-100) /uL Sodium 137 (137-145) mmol/L Potassium 4.0 (3.4-5.1) mmol/L Chloride 104 (98-107) mmol/L Carbon Dioxide 25 (22-32) mmol/L BUN 12 (7-17) mg/dL Creatinine 0.65 (0.52-1.04) mg/dL Estimated GFR > 60.0 (>60) mL/min BUN/Creatinine Ratio 18.5 (6-22) Glucose 114 H (70-100) mg/dL Lactate 1.3 (0.7-2.1) mmol/L Calcium 9.8 (8.4-10.2) mg/dL Total Bilirubin 0.4 (0.2-1.3) mg/dL AST 20 (14-36) IU/L ALT 15 (<35) IU/L Alkaline Phosphatase 55 (38-126) U/L Total Protein 7.1 (6.3-8.2) g/dL Albumin 4.3 (3.5-5.0) g/dL Globulin 2.8 (1.7-4.1) g/dL Albumin/Globulin Ratio 1.5 (1.0-2.8) Urine RBC (0-5/HPF) Urine WBC (0-5/HPF) Ur Squamous Epith Cells (0-5/HPF) Urine Bacteria (None) Ur Culture Indicated? 10/01/20 Range/Units 17:27 WBC (4.5-11.0) X10^3/uL RBC (4.0-5.2) X10^6/uL Hgb (12.0-16.0) g/dL Hct (36-46) % MCV (80-100) fL MCH (26-34) PG MCHC (30-36) % RDW (11.6-14.8) % Plt Count (150-400) X10^3/uL Neut % (Auto) (50-75) % Lymph % (Auto) (25-40) % Andrew % (Auto) (3-14) % Eos % (Auto) (2-4) % Baso % (Auto) (0-2) % Neut # (Auto) (7350-6188) /uL Lymph # (Auto) (5929-8209) /uL Andrew # (Auto) (0-900) /uL Eos # (Auto) (0-450) /uL Baso # (Auto) (0-100) /uL Sodium (137-145) mmol/L Potassium (3.4-5.1) mmol/L Chloride (98-107) mmol/L Carbon Dioxide (22-32) mmol/L BUN (7-17) mg/dL Creatinine (0.52-1.04) mg/dL Estimated GFR (>60) mL/min BUN/Creatinine Ratio (6-22) Glucose (70-100) mg/dL Lactate (0.7-2.1) mmol/L Calcium (8.4-10.2) mg/dL Total Bilirubin (0.2-1.3) mg/dL AST (14-36) IU/L ALT (<35) IU/L Alkaline Phosphatase (38-126) U/L Total Protein (6.3-8.2) g/dL Albumin (3.5-5.0) g/dL Globulin (1.7-4.1) g/dL Albumin/Globulin Ratio (1.0-2.8) Urine RBC >100/hpf H (0-5/HPF) Urine WBC 10-30/hpf H (0-5/HPF) Ur Squamous Epith Cells 1-5 /hpf (0-5/HPF) Urine Bacteria None seen (None) Ur Culture Indicated? Specimen cultured Urine Dip Bedside Urine Glucose Negative Bedside Urine Bilirubin - Negative Bedside Urine Ketone - Negative Urine Specific [place] 1.020 Bedside Urine Occult Blood +++ Bedside Urine pH 7 Bedside Urine Protein ++ 100 Bedside Urine Urobilinogen - Negative Bedside Urine Nitrite - Negative Bedside Urine Leukocytes + [address] scan - abdomen/pelvis: Radiologist's Impression: [id number] [place] [id number] Scan ReportSigned Patient: Silvia Yeager AMR#: [id number]: 1980Acct:[id number]/Sex: 40 / FDate of Service: 10/01/20Loc: EDAccession Number: [id number] Procedure: CT abdomen pelvis w con Ordering Provider: Rach Mittal-BC PROCEDURE: CT ABDOMEN PELVIS W CON INDICATIONS: flank pain, abd pain, cystoscopy yesterday TECHNIQUE: After the administration of intravenous contrast, 5 mm thick sections acquired from the diaphragm to the symphysis. 5 mm coronal and sagittal reformats were acquired. For radiation dose reduction, the following was used: automated exposure control, adjustment of mA and/or kV according to patient size. COMPARISON: [facility], CT, CT ABDOMEN PELVIS W CON, 08/11/2019, 13:55. [facility], CT, CT ABDOMEN PELVIS WO/W CON, 09/11/2020, 10:49. FINDINGS: Image quality: Excellent. ABDOMEN: Lung bases: Lung bases are clear. Heart size is normal. Solid organs: Liver is normal in size and enhancement. Diffuse fatty infiltration of the liver. Gallbladder is normal. Biliary system is non dilated. Pancreas enhances normally. Spleen is normal in size and enhancement. No adrenal nodules. Kidneys demonstrate normal size and enhancement, without hydronephrosis. Peritoneum and bowel: Bowel loops demonstrate normal wall thickness and caliber. Moderate amount of stool noted in the right and transverse colon. No free fluid or air. Appendix is normal. Nodes and vessels: No retroperitoneal or mesenteric adenopathy by size criteria. Aorta and inferior vena cava are normal in size. Miscellaneous: No ventral hernias. PELVIS: Genitourinary: Urinary bladder wall is thickened. Inflammatory changes and trace fluid noted adjacent to the urinary bladder. Uterus is absent or atrophied. Miscellaneous: No inguinal hernias or adenopathy. Bones: No suspicious bony lesions. No vertebral body compression fractures. IMPRESSION: 1. Diffuse urinary bladder wall thickening with inflammatory stranding in the fat adjacent urinary bladder. Findings compatible with nonspecific cystitis. Recommend correlation with urinalysis data to exclude infectious cystitis. 2. No hydronephrosis. 3. Moderate fecal loading involving the right and transverse colon. Please correlate with clinical data to exclude constipation. 4. Appendix is normal. Dictated by: Susie Logan MD, PhD on 10/01/2020 at 18:08 Approved by: Susie Logan MD, PhD on 10/01/2020 at 18:12 [facility] Narrative Medical decision making narrative: The patient is a 40-year-old female who had a cystoscopy yesterday who presents with a chief complaint of rigors, abdominal pain, bilateral flank pain. Overall her lab work is reassuring, no elevated lactate, no leukocytosis. Her urine has no acute findings other than hematuria, which is to be expected after her cystoscopy. However given her complaints of systemic symptoms exam, CT taken to rule out acute etiology. This had no acute findings other than what appears to be cystitis. Patient is very reassured by this. I spoke with Dr. Gaviria, states that hematuria after her cystoscopy yesterday is normal. His office attempted to contact the patient today, but did note that she was already in the emergency department. He had already called in tramadol for her, which I encouraged her to take. I did offer her belladonna suppositories, which the patient declined because she does not want to do suppositories. I did encouraged her to use Pyridium. Discussed at length follow up with primary care provider as well as Dr. Gaviria. Patient appears very reassured by lab work and imaging. Patient has no questions or concerns upon discharge states understanding of return precautions as well as follow-up care. <Aniya Irwin, - Last Filed: 10/01/20 19:30> Lab Data Labs: Lab Results 10/01/20 10/01/20 10/01/20 Range/Units 16:58 16:58 16:58 WBC 9.4 (4.5-11.0) X10^3/uL RBC 4.37 (4.0-5.2) X10^6/uL Hgb 12.7 (12.0-16.0) g/dL Hct 38.2 (36-46) % MCV 87.4 (80-100) fL MCH 29.0 (26-34) PG MCHC 33.2 (30-36) % RDW 14.0 (11.6-14.8) % Plt Count 358 (150-400) X10^3/uL Neut % (Auto) 67.2 (50-75) % Lymph % (Auto) 21.7 L (25-40) % Andrew % (Auto) 8.5 (3-14) % Eos % (Auto) 2.2 (2-4) % Baso % (Auto) 0.4 (0-2) % Neut # (Auto) 6300 (6280-8607) /uL Lymph # (Auto) 2000 (1235-1885) /uL Andrew # (Auto) 800 (0-900) /uL Eos # (Auto) 200 (0-450) /uL Baso # (Auto) 0 (0-100) /uL Sodium 137 (137-145) mmol/L Potassium 4.0 (3.4-5.1) mmol/L Chloride 104 (98-107) mmol/L Carbon Dioxide 25 (22-32) mmol/L BUN 12 (7-17) mg/dL Creatinine 0.65 (0.52-1.04) mg/dL Estimated GFR > 60.0 (>60) mL/min BUN/Creatinine Ratio 18.5 (6-22) Glucose 114 H (70-100) mg/dL Lactate 1.3 (0.7-2.1) mmol/L Calcium 9.8 (8.4-10.2) mg/dL Total Bilirubin 0.4 (0.2-1.3) mg/dL AST 20 (14-36) IU/L ALT 15 (<35) IU/L Alkaline Phosphatase 55 (38-126) U/L Total Protein 7.1 (6.3-8.2) g/dL Albumin 4.3 (3.5-5.0) g/dL Globulin 2.8 (1.7-4.1) g/dL Albumin/Globulin Ratio 1.5 (1.0-2.8) Urine RBC (0-5/HPF) Urine WBC (0-5/HPF) Ur Squamous Epith Cells (0-5/HPF) Urine Bacteria (None) Ur Culture Indicated? 10/01/20 Range/Units 17:27 WBC (4.5-11.0) X10^3/uL RBC (4.0-5.2) X10^6/uL Hgb (12.0-16.0) g/dL Hct (36-46) % MCV (80-100) fL MCH (26-34) PG MCHC (30-36) % RDW (11.6-14.8) % Plt Count (150-400) X10^3/uL Neut % (Auto) (50-75) % Lymph % (Auto) (25-40) % Andrew % (Auto) (3-14) % Eos % (Auto) (2-4) % Baso % (Auto) (0-2) % Neut # (Auto) (5325-5130) /uL Lymph # (Auto) (2457-9751) /uL Andrew # (Auto) (0-900) /uL Eos # (Auto) (0-450) /uL Baso # (Auto) (0-100) /uL Sodium (137-145) mmol/L Potassium (3.4-5.1) mmol/L Chloride (98-107) mmol/L Carbon Dioxide (22-32) mmol/L BUN (7-17) mg/dL Creatinine (0.52-1.04) mg/dL Estimated GFR (>60) mL/min BUN/Creatinine Ratio (6-22) Glucose (70-100) mg/dL Lactate (0.7-2.1) mmol/L Calcium (8.4-10.2) mg/dL Total Bilirubin (0.2-1.3) mg/dL AST (14-36) IU/L ALT (<35) IU/L Alkaline Phosphatase (38-126) U/L Total Protein (6.3-8.2) g/dL Albumin (3.5-5.0) g/dL Globulin (1.7-4.1) g/dL Albumin/Globulin Ratio (1.0-2.8) Urine RBC >100/hpf H (0-5/HPF) Urine WBC 10-30/hpf H (0-5/HPF) Ur Squamous Epith Cells 1-5 /hpf (0-5/HPF) Urine Bacteria None seen (None) Ur Culture Indicated? Specimen cultured Urine Dip Bedside Urine Glucose Negative Bedside Urine Bilirubin - Negative Bedside Urine Ketone - Negative Urine Specific [place] 1.020 Bedside Urine Occult Blood +++ Bedside Urine pH 7 Bedside Urine Protein ++ 100 Bedside Urine Urobilinogen - Negative Bedside Urine Nitrite - Negative Bedside Urine Leukocytes + 70 Esterase Discharge Plan Departure Patient Disposition: Home Clinical Impression: Hematuria Qualifiers: Hematuria type: unspecified type Qualified Code(s): R31.9 - Hematuria, unspecified Instructions: DI for Cystoscopy, DI for Hematuria Activity Restrictions/Additional Instructions: Thank for trusting us with your care today As discussed, I spoke with Dr. Gaviria regarding your symptoms and findings. The blood in your urine is to be expected after the procedure that you had. Your lab work and imaging was very reassuring Dr. Gaviria sent a prescription of tramadol in to [facility]. I also encouraged use of [id number] azo to help numb your urinary tract. Please rest and push fluids. Please come back to the emergency department for any acute concerns. You have been prescribed narcotic medications. While on these medications you cannot drive or operate heavy machinery. Additionally you cannot sign legal documents or perform any duties such as this. Many people get constipated on narcotic medications so it would be advisable to discuss stool softeners with the pharmacist when you pear picker your prescription Prescriptions: No Action duloxetine 60 mg capsule,delayed release(DR/EC) 60 mg PO BID Qty: 60 RF: 5 propranolol 20 mg tablet 20 mg PO BID Qty: 60 RF: 5 bupropion HCl 300 mg tablet extended release 24 hr 300 mg PO QAM Qty: 30 RF: 5 clonazepam 0.5 mg tablet 0.5 mg PO BID PRN (Reason: anxiety) Qty: 20 RF: 0 tizanidine 4 mg capsule 4 mg PO BEDTIME PRN (Reason: muscle spasticity) Qty: 30 RF: 5 valsartan-hydrochlorothiazide 80-12.5 mg tablet 1 tab PO DAILY Qty: 90 RF: 3 lamotrigine 100 mg tablet See Rx Instructions .ROUTE .COMPLEX Qty: 90 RF: 0 prazosin 1 mg capsule See Rx Instructions .ROUTE .COMPLEX Qty: 90 RF: 0 tramadol 100 mg tablet 100 mg PO Q6H PRN (Reason: pain) Qty: 14 RF: 0 pravastatin 20 mg tablet 20 mg PO BEDTIME Qty: 90 RF: 3 lysine [L-Lysine] 500 mg Tablet 500 mg PO DAILY Qty: 0 RF: 0 Centrum 50 1 tab PO DAILY RF: 0 metformin 500 mg tablet extended release 24 hr 500 mg PO QPM RF: 0 oxycodone 5 mg tablet 5 mg PO Q4H PRN (Reason: pain) Qty: 10 RF: 0 Referrals: Anup Gaviria MD [Physician] - Gonzalez Chan DO [Primary Care Provider] - <Aniya Irwin DO - Last Filed: 10/01/20 19:30> Cosign ED Attending Saad Attestation: I was immediately available in the department for consultation. Documentation has been reviewed. I agree with assessment and plan.
[2020-10-01 19:25] VITALS: BP 140/81; PULSE 83; RESP 18; O2SAT 97
== END 2020-10-01 19:25 | disposition home or self-care (01) ==
PROVIDERS: Emergency Provider Nurse Practitioner Family; PCP Family Medicine
DX: R31.9 Hematuria, unspecified (principal); R30.0 Dysuria; R10.30 Lower abdominal pain, unspecified
CPT/HCPCS: 36415; 51798; 74177; 80053; 81003; 81015; 83605; 85025; 87077; 87086; 87186; 96361; 96374; 96375; 99284; J2270; J2405; Q9967

== ENCOUNTER → 2020-10-22 17:04 | Outpatient (CLI) | payer OTHER, SELFPAY ==
[2020-10-10 08:52] VITALS: BMI 46.8
[2020-10-22 17:47] LABS: Appearance Urine UA CLEAR; Bilirubin Urine UA NEGATIVE (NEGATIVE); Color Urine UA YELLOW; Glucose Urine UA NEGATIVE (Negative); Ketones Urine UA NEGATIVE (NEGATIVE); Leukocyte Esterase Urine UA NEGATIVE (NEGATIVE); Nitrite Urine UA NEGATIVE (Negative); Occult Blood Urine UA 1+ (Negative); Protein Urine UA NEGATIVE (Negative); Specific Gravity Urine UA 1.015 (1.000-1.035); Urobilinogen Urine UA 0.2 E.U./dL (0.2)
[2020-10-22 17:50] LABS: pH Urine UA 6.5 (4.5-8.0)
[2020-10-22 18:00] LABS: Bacteria Urine Moderate (10-30); Culture Indicated Urine Cult Not Indicated; Mucus Urine 1+ (Negative); RBC Urine 0-1/HPF (0-5/HPF); Squamous Epithelial Cell Urine 10-30 /HPF (0-5/HPF); WBC Urine 1-5/HPF (0-5/HPF)
== END ==
PROVIDERS: PCP Family Medicine; Referring Provider Specialist; Visit Provider Specialist
DX: R31.9 Hematuria, unspecified (principal)
CPT/HCPCS: 81003; 81015

== ENCOUNTER → 2021-01-17 12:33 | Outpatient (CLI) | payer OTHER, SELFPAY ==
[2020-10-28 13:26] VITALS: BMI 46.8
--- NOTE | 2021-01-17 12:34 | DI.US.S_ITS ---
LIMITED ULTRASOUND OF RIGHT BREAST: 01/17/2021 CLINICAL: Palpable right breast lump. Comparison is made to exams dated: 01/17/2021 mammogram - [facility], 04/25/2014 mammogram, and 12/27/2008 mammogram - outside facility. Color flow and real-time ultrasound of the right breast 1-2 o'clock region were performed on the areas of interest. IMPRESSION: NEGATIVE There is no sonographic evidence of malignancy. There are no abnormalities seen in the right breast to correspond with the palpable abnormalities at 1 and 2 o'clock, however, clinical followup is recommended. A 1 year screening mammogram is recommended. This exam was interpreted at Station ID: [id number]. Electronically Signed By: Julian mitchell/carolyne:01/17/2021 14:12:49 letter sent: Clinical Evaluation Ultrasound BI-RADS: 1 Negative
--- NOTE | 2021-01-17 12:34 | DI.US.S_ITS ---
PROCEDURE: US PELVIC COMPLETE INDICATIONS: VAGINAL BLEEDING TECHNIQUE: Real-time scanning was performed of the pelvic organs, with image documentation. Additional endovaginal scanning was necessary due to incomplete visualization of the adnexal and endometrial structures by transabdominal scanning. COMPARISON: [facility], PELVIC COMPLETE, 12/15/2019, 19:25. FINDINGS: Uterus: Uterus is surgically absent. The cervix is present and has a normal appearance. No suspicious mass in the vaginal cuff. Ovaries: The right ovary measures 3.5 x 2.2 x 1.4 cm for a volume of 5.6 cc. The left ovary measures 3.8 x 2.4 x 2.4 cm for a volume of 11.4 cc. There are few follicles on the left ovary, the largest demonstrates slight increased vascularity suggesting a corpus luteum. There is normal blood flow in each ovary. Other: No pathologic free abdominal or pelvic fluid. IMPRESSION: 1. Post hysterectomy with normal appearing cervix and vaginal cuff. 2. Normal ovaries for patient age. Dictated by: Gina Hoff M.D. on 01/17/2021 at 18:11 Approved by: Gina Hoff M.D. on 01/17/2021 at 18:14
--- NOTE | 2021-01-17 12:34 | DI.MG.S_ITS ---
BILATERAL DIGITAL DIAGNOSTIC MAMMOGRAM 3D/2D: 01/17/2021 CLINICAL: Breast pain. Comparison is made to exams dated: 12/27/2008 mammogram and 04/25/2014 mammogram - outside facility. There are scattered fibroglandular elements in both breasts. No significant masses, calcifications, or other findings are seen in either breast. IMPRESSION: INCOMPLETE: NEEDS ADDITIONAL IMAGING EVALUATION There is no abnormality seen in the right breast to correspond with the palpable abnormality in the upper inner quadrant, however, ultrasound is recommended. No discrete abnormality identified to correlate with the reported 2 year history of bilateral skin crusty residue on the nipples. Followup is recommended clincially. Ultrasound will be performed immediately following the current exam. This exam was interpreted at Station ID: [id number]. NOTE: For mammograms, a report in lay terms will be sent to the patient. Approximately 15% of breast malignancies will not be visualized mammographically. In the management of a palpable breast mass, a negative mammogram must not discourage biopsy of a clinically suspicious lesion. Electronically Signed By: Julian Rodriguez M.D. [email or web address]/:01/17/2021 13:47:11 ACR BI-RADS Category 0: Incomplete [id number]
== END ==
PROVIDERS: PCP Family Medicine; Referring Provider Registered Nurse; Visit Provider Registered Nurse
DX: N64.4 Mastodynia (principal); N63.12 Unspecified lump in the right breast, upper inner quadrant; N93.9 Abnormal uterine and vaginal bleeding, unspecified; R92.2 Inconclusive mammogram; Z90.710 Acquired absence of both cervix and uterus
CPT/HCPCS: 76642; 76830; 76856; 77066; G0279

== ENCOUNTER → 2021-02-20 12:19 | Outpatient (CLI) | payer OTHER, SELFPAY ==
[2020-10-28 13:26] VITALS: BMI 46.8
[2021-02-20 13:35] LABS: Free T4, Direct Thyroxine 0.78 ng/dL (0.78-2.19)
[2021-02-20 13:49] LABS: Thyroid Stimulating Hormone 3.72 uIU/mL (0.47-4.68)
[2021-02-20 16:44] LABS: Follicle Stimulating Hormone 5.62 mIU/mL
[2021-02-27 13:12] LABS: Estrogen 200 pg/mL (.)
== END ==
PROVIDERS: PCP Family Medicine; Referring Provider Family Medicine; Visit Provider Family Medicine
DX: E28.2 Polycystic ovarian syndrome (principal); F41.9 Anxiety disorder, unspecified; N63.0 Unspecified lump in unspecified breast; F33.2 Major depressive disorder, recurrent severe without psychotic features; F41.0 Panic disorder [episodic paroxysmal anxiety]; F43.12 Post-traumatic stress disorder, chronic; M51.05 Intervertebral disc disorders with myelopathy, thoracolumbar region; F99 Mental disorder, not otherwise specified
CPT/HCPCS: 36415; 82672; 83001; 83002; 84439; 84443; 99214

== ENCOUNTER 2021-05-17 14:11 | Emergency (ER) | payer OTHER, SELFPAY ==
[2020-10-28 13:26] VITALS: BMI 46.8
[2021-05-17] VITALS (12 sets, daily range): BP systolic 100–143; BP diastolic 59–95; PULSE 60–86; RESP 15–27; TEMP 37.7; O2SAT 94–97; BMI 48.6
--- NOTE | 2021-05-17 14:25 | DI.RAD.S_ITS ---
PROCEDURE: XR CHEST 1V INDICATIONS: chest pain TECHNIQUE: One view of the chest was acquired. COMPARISON: None. FINDINGS: Surgical changes and devices: None. Lungs and pleura: Lungs are clear. No pleural effusions or pneumothorax. Mediastinum: Mediastinal contours appear normal. Heart size is normal. Bones and chest wall: No suspicious bony lesions. Overlying soft tissues appear unremarkable. IMPRESSION: No acute cardiopulmonary abnormalities or focal airspace disease. Dictated by: Kieran Rand M.D. on 05/17/2021 at 15:10 Approved by: Kieran Rand M.D. on 05/17/2021 at 15:11
--- NOTE | 2021-05-17 14:32 | ED_ITS ---
HPI - Chest Pain General Chief Complaint: Chest Pain Stated Complaint: High BP, Chest pain Time Seen by Provider: 05/17/21 14:24 Source: patient Mode of arrival: Family Vehicle Limitations: no limitations History of Present Illness HPI narrative: Patient is a female with history of PTSD, anxiety, hypertension, fibromyalgia presenting today with chest discomfort and increasing shortness of breath. She says that she has been taking her blood pressure at home this normally with a systolic 140-150 however today it was 160 and she is having worsening chest discomfort. She said that she has had intermittent chest pain palpitations and discomfort off and on for the last couple of weeks. Usually lasts briefly for a few seconds. She said last night she felt like her heart pounding. Today she had some sharp pain which brought her to the emergency department she now feels like it is dull. It is nonradiating. She also has that she gets extremely short of breath with any minimal exertion. She said this is abnormal for her it to has been going on for about 1 month. She denies any orthopnea or increased swelling in her legs. She has had a hysterectomy. She reports overall extreme fatigue and significant hair loss as well. She follows a plant based diet has for 11 years. She does not feel like this is her anxiety. She denies any hemoptysis she does not take any hormone replacement no recent travel. Related Data Home Medications Medication Instructions Recorded Confirmed Centrum 50 1 tab PO DAILY 08/11/19 05/08/21 lysine 500 mg tablet (L-Lysine) 500 mg PO DAILY #0 08/11/19 05/08/21 Previous Rx's Medication Instructions Recorded valsartan 80 1 tab PO DAILY #90 tab 08/13/20 mg-hydrochlorothiazide 12.5 mg tablet tolterodine 4 mg capsule,extended 4 mg PO DAILY #90 cap 11/05/20 release 24 hr pravastatin 20 mg tablet 20 mg PO BEDTIME #90 tab 12/04/20 duloxetine 60 mg capsule,delayed 60 mg PO BID #60 cap 12/05/20 release tizanidine 4 mg capsule 4 mg PO BEDTIME PRN #30 cap 12/05/20 metformin 500 mg tablet,extended 500 mg PO QPM #90 tab 12/30/20 release 24 hr clonazepam 0.5 mg tablet 0.5 mg PO BID PRN #20 tab 01/08/21 lamotrigine 200 mg tablet 200 mg PO BID #60 tab 02/20/21 bupropion HCl 300 mg 24 hr tablet, 300 mg PO QAM #30 tab 04/28/21 extended release propranolol 20 mg tablet 20 mg PO BID #60 tab 04/28/21 prazosin 1 mg capsule See Rx Instructions .ROUTE 05/08/21 .COMPLEX #90 cap albuterol sulfate 90 mcg/actuation 2 puff INHALATION Q4-6H PRN #8.5 05/17/21 aerosol inhaler gram Allergies Allergy/AdvReac Type Severity Reaction Status Date / Time amoxicillin Allergy Intermediate rash Verified 05/17/21 14:25 codeine Allergy Intermediate Vomiting, Verified 05/17/21 14:25 passes out latex Allergy Rash Verified 05/17/21 14:25 Review of Systems Review of Systems Narrative: GENERAL: + fatigue Denies chills, malaise, fever, sweats, travel HEENT: Denies sinus pain, ear pain, sore throat, difficulty swallowing, neck pain RESPIRATORY: See HPI CARDIOVASCULAR: See HPI GASTROINTESTINAL: Denies nausea, vomiting, abdominal pain, diarrhea, constipation, melena. : Denies dysuria, frequency, incontinence, hematuria, urinary retention, flank pain. MUSCULOSKELETAL: Denies weakness, joint pain, or bony pain SKIN: No rash, no erythema, no pruritus NEUROLOGIC: Denies weakness, dizziness, headache, numbness, change in speech, confusion PSYCHIATRIC: No concerning psychosocial issues. 12 point review of systems is negative except for those stated above and HPI Patient History Medical History (Updated 05/17/21 @ 18:22 by Aniya Irwin DO) Anxiety Atypical nevi Bladder pain Breast lump Cervical cancer screening Depression Dizziness Endometriosis Fibromyalgia Fibromyalgia History of UTI Hyperlipidemia Hypertelorism Hypertension Interstitial cystitis Irregular menstrual cycle Microscopic hematuria Migraine Pain of right breast PCOS (polycystic ovarian syndrome) Post traumatic stress disorder (PTSD) PTSD (post-traumatic stress disorder) Sleep apnea UTI (urinary tract infection) Surgical History H/O left wrist surgery History of tonsillectomy Hx of abdominal hysterectomy Hx of laparoscopy (~2002) S/P lumpectomy, right breast [place] teeth extracted Family History Grandmother Cancer Hyperlipidemia Hypertension Grandfather Diabetes mellitus Mother Interstitial cystitis Migraines Thyroid disorder UTI (urinary tract infection) Meniere disease Fibromyalgia Endometriosis Social History marital status: household members: spouse and friend(s) Smoking Status: Never smoker alcohol intake: never caffeine: Yes Smoking Status: Never smoker alcohol intake frequency: 0-2 drinks per day Substance Use Type: does not use Exam Initial Vital Signs Initial Vital Signs: Vital Signs Pulse Rate 86 05/17/21 14:17 Respiratory Rate 19 05/17/21 14:17 Pulse Oximetry 97 05/17/21 14:17 GENERAL: Alert well-appearing 41-year-old female, slightly anxious BMI 48 HEENT: Head atraumatic,EOMI, pupils reactive, face symmetric, moist mucous membranes CARDIOVASCULAR: Regular rate and rhythm without murmurs, rubs or gallops. RESPIRATORY: Breath sounds equal bilaterally, no wheezes rales or rhonchi. ABDOMEN: Soft, nontender. Normoactive bowel sounds all 4 quadrants. No guarding or rebound. EXTREMITIES: Normal range of motion, no clubbing or edema. Neurovascularly intact NEUROLOGICAL: Alert and oriented x4.Normal gait and speech. SKIN: Warm, dry, no laceration, no petechiae, no rashes or lesions. Scores HEART Score Heart Score history: Slightly Suspicious Heart Score EKG: Normal Heart Score Age: < 45 years old Heart Score risk factors: No known risk factors Heart Score troponin: < or = to normal limit Heart Score Total: 0 PERC Score Age greater than or equal to 50 years: No Heart rate greater than or equal to 100 bpm: No Room Air O2 Sat less than 95%: No Unilateral leg swelling: No Recent trauma or surgery: No Hemoptysis: No Prior PE or DVT: No Hormone Use: No Total PERC Score: 0 Course Orders Ordered: Discontinued Medications Ketorolac Tromethamine (Ketorolac 30 Mg/Ml Vial) 15 mg IV NOW ONE Stop: 05/17/21 16:50 Last Admin: 05/17/21 16:59 Dose: 15 mg Documented by: ALPHONSE Vital Signs Vital signs: Vital Signs - 8 hr 05/17/21 14:17 05/17/21 14:18 05/17/21 14:25 Temperature 100 F H Pulse Rate 86 84 80 Respiratory Rate 19 23 18 Blood Pressure 138/95 H 138/95 H Pulse Oximetry 97 97 96 05/17/21 14:30 05/17/21 15:00 05/17/21 15:30 Temperature Pulse Rate 76 73 69 Respiratory Rate 16 27 H 19 Blood Pressure 122/87 120/71 120/61 Pulse Oximetry 95 96 94 05/17/21 16:00 05/17/21 16:30 05/17/21 17:00 Temperature Pulse Rate 67 60 72 Respiratory Rate 15 15 20 Blood Pressure 118/74 100/59 L 108/70 Pulse Oximetry 94 95 95 05/17/21 17:30 05/17/21 18:00 05/17/21 18:01 Temperature Pulse Rate 62 66 66 Respiratory Rate 16 22 21 Blood Pressure 143/85 H 112/59 L Pulse Oximetry 96 94 95 MDM - Chest Pain Lab Data Result diagrams: 05/17/21 14:25 05/17/21 14:25 Labs: Lab Results 05/17/21 05/17/21 05/17/21 Range/Units 14:25 14:25 14:25 WBC 6.7 (4.5-11.0) X10^3/uL RBC 4.36 (4.0-5.2) X10^6/uL Hgb 12.7 (12.0-16.0) g/dL Hct 37.4 (36-46) % MCV 85.9 (80-100) fL MCH 29.2 (26-34) PG MCHC 34.0 (30-36) % RDW 13.9 (11.6-14.8) % Plt Count 359 (150-400) X10^3/uL Neut % (Auto) 61.5 (50-75) % Lymph % (Auto) 29.3 (25-40) % [place] % (Auto) 7.4 (3-14) % Eos % (Auto) 1.3 L (2-4) % Baso % (Auto) 0.5 (0-2) % Neut # (Auto) 4200 (4803-9305) /uL Lymph # (Auto) 2000 (5186-9711) /uL [place] # (Auto) 500 (0-900) /uL Eos # (Auto) 100 (0-450) /uL Baso # (Auto) 0 (0-100) /uL D-Dimer < 200 (<230) ng/mL Sodium 136 L (137-145) mmol/L Potassium 4.1 (3.4-5.1) mmol/L Chloride 99 (98-107) mmol/L Carbon Dioxide 24 (22-32) mmol/L BUN 17 (7-17) mg/dL Creatinine 0.94 (0.52-1.04) mg/dL Estimated GFR > 60.0 (>60) mL/min BUN/Creatinine Ratio 18.1 (6-22) Glucose 124 H (70-100) mg/dL Calcium 9.2 (8.4-10.2) mg/dL Total Bilirubin 0.6 (0.2-1.3) mg/dL AST 29 (14-36) IU/L ALT 31 (<35) IU/L Alkaline Phosphatase 51 (38-126) U/L Total Creatine Kinase 62 (30-135) U/L CK-MB (CK-2) TNP CK-MB (CK-2) Rel Index TNP Troponin I < 0.012 (0.01-0.034) ng/mL NT-Pro-B Natriuret Pep (<125) pg/mL Total Protein 7.6 (6.3-8.2) g/dL Albumin 4.7 (3.5-5.0) g/dL Globulin 2.9 (1.7-4.1) g/dL Albumin/Globulin Ratio 1.6 (1.0-2.8) Lipase 47 (23-300) U/L TSH (0.47-4.68) uIU/mL 05/17/21 05/17/21 05/17/21 Range/Units 14:25 14:25 16:48 WBC (4.5-11.0) X10^3/uL RBC (4.0-5.2) X10^6/uL Hgb (12.0-16.0) g/dL Hct (36-46) % MCV (80-100) fL MCH (26-34) PG MCHC (30-36) % RDW (11.6-14.8) % Plt Count (150-400) X10^3/uL Neut % (Auto) (50-75) % Lymph % (Auto) (25-40) % [place] % (Auto) (3-14) % Eos % (Auto) (2-4) % Baso % (Auto) (0-2) % Neut # (Auto) (3107-5317) /uL Lymph # (Auto) (5053-7582) /uL [place] # (Auto) (0-900) /uL Eos # (Auto) (0-450) /uL Baso # (Auto) (0-100) /uL D-Dimer (<230) ng/mL Sodium (137-145) mmol/L Potassium (3.4-5.1) mmol/L Chloride (98-107) mmol/L Carbon Dioxide (22-32) mmol/L BUN (7-17) mg/dL Creatinine (0.52-1.04) mg/dL Estimated GFR (>60) mL/min BUN/Creatinine Ratio (6-22) Glucose (70-100) mg/dL Calcium (8.4-10.2) mg/dL Total Bilirubin (0.2-1.3) mg/dL AST (14-36) IU/L ALT (<35) IU/L Alkaline Phosphatase (38-126) U/L Total Creatine Kinase (30-135) U/L CK-MB (CK-2) CK-MB (CK-2) Rel Index Troponin I < 0.012 (0.01-0.034) ng/mL NT-Pro-B Natriuret Pep < 11 (<125) pg/mL Total Protein (6.3-8.2) g/dL Albumin (3.5-5.0) g/dL Globulin (1.7-4.1) g/dL Albumin/Globulin Ratio (1.0-2.8) Lipase (23-300) U/L TSH 3.84 (0.47-4.68) uIU/mL Imaging Data Chest x-ray: Radiologist's Impression: PROCEDURE:? XR CHEST 1V ? INDICATIONS:? chest pain ? TECHNIQUE:? One view of the chest was acquired.? ? COMPARISON:? None. ? FINDINGS:? ? Surgical changes and devices:? None.? ? Lungs and pleura:? Lungs are clear.? No pleural effusions or pneumothorax.? ? Mediastinum:? Mediastinal contours appear normal.? Heart size is normal.? ? Bones and chest wall:? No suspicious bony lesions.? Overlying soft tissues appear unremarkable.? ? IMPRESSION:? No acute cardiopulmonary abnormalities or focal airspace disease. ? Dictated by: Kieran Rand M.D. on 05/17/2021 at 15:10 ? ? ECG Data Interpretation: Sinus rhythm rate 78 [place] interval 172 QRS [address] changes,similar to prior EKG 2. Sinus rhythm rate 63 [place] interval [address] changes artifact noted MDM Narrative Medical decision making narrative: Patient complaining of extreme fatigue and shortness of breath ongoing for a few weeks Differential includes but not limited to thyroid, pulmonary embolism and coronary artery disease. Patient blood work is overall reassuring. No sign of anemia or hypothyroid. Heart score and PERC score are 0. She has had intermittent chest discomfort fatigue and shortness of breath for few weeks. She also suffers from depression anxiety and PTSD. At this time does not meet admission criteria and I recommend outpatient follow-up and possible further testing. I discussed all findings with the patient and , Education has been performed regarding treatment plan, diagnosis, warning signs and symptoms and all concerns have been addressed. Verbally agree with and understood all of the above. Discharge Plan Departure Patient Disposition: Home Clinical Impression: Atypical chest pain Instructions: DI for Atypical Chest Pain Activity Restrictions/Additional Instructions: *You have been diagnosed with atypical chest pain *What to do: At this time blood work is overall reassuring. You may require stress test and/or echocardiogram for further workup with your primary care pro vider. *Continue to take medications as directed Albuterol 1-2 puffs every 4 hours only if needed for shortness of breath--> SENT TO [facility] *Follow up with your primary care provider in 2-3 days *Return to ER if you should have increasing chest pain, shortness of breath, palpitations, passing out or any new, worsening or concerning symptoms Prescriptions: New albuterol sulfate 90 mcg/actuation HFA aerosol inhaler 2 puff INHALATION Q4-6H PRN (Reason: shortness of breath or wheezing) Qty: 8.5 RF: 0 No Action lamotrigine 200 mg tablet 200 mg PO BID Qty: 60 RF: 3 prazosin 1 mg capsule See Rx Instructions .ROUTE .COMPLEX Qty: 90 RF: 3 duloxetine 60 mg capsule,delayed release(DR/EC) 60 mg PO BID Qty: 60 RF: 5 tizanidine 4 mg capsule 4 mg PO BEDTIME PRN (Reason: muscle spasticity) Qty: 30 RF: 5 clonazepam 0.5 mg tablet 0.5 mg PO BID PRN (Reason: anxiety) Qty: 20 RF: 0 valsartan-hydrochlorothiazide 80-12.5 mg tablet 1 tab PO DAILY Qty: 90 RF: 3 tolterodine 4 mg capsule,extended release 24hr 4 mg PO DAILY Qty: 90 RF: 3 pravastatin 20 mg tablet 20 mg PO BEDTIME Qty: 90 RF: 3 metformin 500 mg tablet extended release 24 hr 500 mg PO QPM Qty: 90 RF: 2 propranolol 20 mg tablet 20 mg PO BID Qty: 60 RF: 5 bupropion HCl 300 mg tablet extended release 24 hr 300 mg PO QAM Qty: 30 RF: 5 lysine [L-Lysine] 500 mg Tablet 500 mg PO DAILY Qty: 0 RF: 0 Centrum 50 1 tab PO DAILY RF: 0 Referrals: Gonzalez Chan DO [Primary Care Provider] -
[2021-05-17 14:41] LABS: Add Manual Diff / Slide Review NO; Basophils Absolute Auto 0 /uL (0-100); Basophils Percent Auto 0.5 % (0-2); Eosinophils Absolute Auto 100 /uL (0-450); Eosinophils Percent Auto 1.3 % (2-4); Hematocrit 37.4 % (36-46); Hemoglobin 12.7 g/dL (12.0-16.0); Lymphocytes Absolute Auto 2000 /uL (1100-4500); Lymphocytes Percent Auto 29.3 % (25-40); Mean Corpuscular Hemoglobin 29.2 PG (26-34); Mean Corpuscular Volume 85.9 fL (80-100); Monocytes Absolute Auto 500 /uL (0-900); Monocytes Percent Auto 7.4 % (3-14); Neutrophils Absolute Auto 4200 /uL (1500-7000); Neutrophils Percent Auto 61.5 % (50-75); Platelet Count 359 X10^3/uL (150-400); Red Blood Cell Count 4.36 X10^6/uL (4.0-5.2); Red Cell Distribution Width 13.9 % (11.6-14.8); White Blood Cell Count 6.7 X10^3/uL (4.5-11.0)
[2021-05-17 14:45] LABS: Alanine Aminotransferase 31 IU/L (<35); Albumin 4.7 g/dL (3.5-5.0); Albumin Globulin Ratio 1.6 (1.0-2.8); Alkaline Phosphatase 51 U/L (38-126); Aspartate Aminotransferase 29 IU/L (14-36); BUN Creatinine Ratio 18.1 (6-22); Bilirubin Total 0.6 mg/dL (0.2-1.3); Blood Urea Nitrogen 17 mg/dL (7-17); Calcium 9.2 mg/dL (8.4-10.2); Carbon Dioxide 24 mmol/L (22-32); Chloride 99 mmol/L (98-107); Creatine Kinase 62 U/L (30-135); Estimated Glomerular Filt Rate > 60.0 mL/min (>60); Globulin 2.9 g/dL (1.7-4.1); Glucose 124 mg/dL (70-100); HEMOLYSIS < 15 (0-50); Lipase 47 U/L (23-300); Potassium 4.1 mmol/L (3.4-5.1); Sodium 136 mmol/L (137-145); Total Protein 7.6 g/dL (6.3-8.2)
[2021-05-17 14:57] LABS: Troponin I < 0.012 ng/mL (0.01-0.034)
[2021-05-17 15:59] LABS: NT-proBNP (BNP-Adult 18+) < 11 pg/mL (<125)
[2021-05-17 16:21] LABS: TSH w/ Reflex to FT4 3.84 uIU/mL (0.47-4.68)
[2021-05-17 16:28] LABS: D Dimer < 200 ng/mL (<230)
[2021-05-17] MEDS: KETOROLAC 30 MG/ML VIAL 15 MG IV (16:59)
[2021-05-17 17:30] LABS: Troponin I < 0.012 ng/mL (0.01-0.034)
== END 2021-05-17 18:31 | disposition home or self-care (01) ==
PROVIDERS: Emergency Provider Emergency Medicine; PCP Family Medicine
DX: R07.89 Other chest pain (principal); R06.02 Shortness of breath; R00.2 Palpitations
CPT/HCPCS: 36415; 71045; 80053; 82550; 83690; 83880; 84443; 84484; 85025; 85379; 93005; 93010; 96374; 99284; J1885

== ENCOUNTER → 2021-06-12 09:22 | Outpatient (CLI) | payer OTHER, SELFPAY ==
[2020-10-28 13:26] VITALS: BMI 46.8
[2021-06-12 10:48] LABS: Hemoglobin A1C% w Est Avg Glu 5.8 % (4.0-6.0)
[2021-06-12 11:01] LABS: Alanine Aminotransferase 28 IU/L (<35); Albumin 4.7 g/dL (3.5-5.0); Albumin Globulin Ratio 1.6 (1.0-2.8); Alkaline Phosphatase 48 U/L (38-126); Aspartate Aminotransferase 25 IU/L (14-36); BUN Creatinine Ratio 11.3 (6-22); Bilirubin Total 0.5 mg/dL (0.2-1.3); Blood Urea Nitrogen 9 mg/dL (7-17); Calcium 10.7 mg/dL (8.4-10.2); Carbon Dioxide 25 mmol/L (22-32); Chloride 102 mmol/L (98-107); Cholesterol 252 mg/dL (140-199); Estimated Glomerular Filt Rate > 60.0 mL/min (>60); Globulin 2.9 g/dL (1.7-4.1); Glucose 125 mg/dL (70-100); HDL Cholesterol 76 mg/dL (40-60); HEMOLYSIS < 15 (0-50); LDL Cholesterol Calculated 140 mg/dL (<100); Potassium 3.9 mmol/L (3.4-5.1); Sodium 139 mmol/L (137-145); Total Protein 7.6 g/dL (6.3-8.2); Triglycerides 182 mg/dL (35-150)
[2021-06-12 11:36] LABS: Thyroid Stimulating Hormone 3.91 uIU/mL (0.47-4.68)
== END ==
PROVIDERS: PCP Family Medicine; Referring Provider Family Medicine; Visit Provider Family Medicine
DX: R73.03 Prediabetes (principal); E78.5 Hyperlipidemia, unspecified; R07.89 Other chest pain; E66.01 Morbid (severe) obesity due to excess calories; Z68.41 Body mass index [BMI] 40.0-44.9, adult
CPT/HCPCS: 36415; 80053; 80061; 83036; 84443

== ENCOUNTER → 2021-06-13 10:33 | Outpatient (CLI) | payer OTHER, SELFPAY ==
[2020-10-28 13:26] VITALS: BMI 46.8
[2021-06-13 11:14] LABS: COVID19 -Nasal RAPID Negative (Negative)
== END ==
PROVIDERS: PCP Family Medicine; Visit Provider Nurse Practitioner Family
DX: Z20.822 Contact with and (suspected) exposure to COVID-19 (principal)
CPT/HCPCS: 87635

== ENCOUNTER → 2021-06-13 13:02 | Outpatient (CLI) | payer OTHER, SELFPAY ==
[2020-10-28 13:26] VITALS: BMI 46.8
--- NOTE | 2021-06-13 14:21 | PM.TREADMILL ---
Cardiac Stress Test Report Referral & Results Date Patient Seen: 06/13/21 Requesting provider: Gonzalez Chan Indication: Atypical chest pain/palpitations Rest ECG: Unremarkable Procedure Note: Today following both written and verbal informed consent, the patient was exercised according to a standard [facility] protocol. The patient exercised for a total of 3 minutes 52 seconds achieving a maximum heart rate of 152. Patient's maximum systolic blood pressure was 180. This was an estimated 7.0 MET's. There are no ST-T segment changes Normal heart rate and blood pressure response to exercise Function aerobic impairment rates about 45% on the sedentary scale No dysrhythmia Impression: Normal treadmill although patient has extremely limited exercise capacity No evidence of ischemia no dysrhythmias etcetera Please note: Actual ECG tracings can be found in the PACS system.
== END ==
PROVIDERS: PCP Family Medicine; Referring Provider Family Medicine; Visit Provider Family Medicine
DX: R07.89 Other chest pain (principal); R00.2 Palpitations; Z20.822 Contact with and (suspected) exposure to COVID-19
CPT/HCPCS: 87635; 93016; 93017; 93018; C9803

== ENCOUNTER 2021-12-07 17:36 | Emergency (ER) | payer OTHER, SELFPAY ==
[2021-07-23 16:24] VITALS: BMI 46.8
[2021-12-07 17:48] VITALS: BP 168/102; PULSE 103; RESP 16; TEMP 36.7; O2SAT 99; BMI 46.0
--- NOTE | 2021-12-07 17:51 | DI.RAD.S_ITS ---
PROCEDURE: XR SHOULDER LT MIN 2V INDICATIONS: Left shoulder and arm pain since TECHNIQUE: 3 views of the shoulder were acquired. COMPARISON: None. FINDINGS: Bones: No fractures or dislocations. No suspicious bony lesions. Visualized ribs appear intact. Mild lateral downsloping of the acromion can be seen. Soft tissues: No suspicious soft tissue calcifications. The visualized lung demonstrates an unremarkable appearance. IMPRESSION: No significant plain film abnormality can be seen. If it would be helpful for clinical management decision making, please consider a dedicated, scheduled shoulder MRI for further evaluation (assuming that there is no contraindication). Dictated by: Rajesh Ventura M.D. on 12/07/2021 at 17:34 Approved by: Rajesh Ventura M.D. on 12/07/2021 at 17:34
--- NOTE | 2021-12-07 18:09 | ED_ITS ---
HPI - Extremity Problem <Светлана Fierro PA-C - Last Filed: 12/07/21 20:04> General Chief complaint: Extremity Problem,Nontraumatic Stated complaint: Lt shoulder pain Time Seen by Provider: 12/07/21 17:53 History of Present Illness HPI Narrative: Patient is a 41-year-old female presenting with left shoulder pain for the past 3 days. She states she was driving for a long time on Wednesday, and on morning she woke up with shooting pain in her left shoulder that radiates down her left arm. Pain is worse with movement and when she lays on her left side. She describes the pain as deep with occasional shooting pains. She denies any numbness, tingling, sensation changes, or weakness. She reports occasional tension headaches this week. She reports full range of motion. She has taken 1 dose of ibuprofen yesterday for pain control. Related Data Home Medications Medication Instructions Recorded Confirmed Centrum 50 1 tab PO DAILY 08/11/19 10/16/21 lysine 500 mg tablet (L-Lysine) 500 mg PO DAILY #0 08/11/19 10/16/21 propranolol 20 mg tablet 10 mg PO BID tab 06/11/21 10/16/21 Previous Rx's Medication Instructions Recorded bupropion HCl 300 mg 24 hr tablet, 300 mg PO QAM #30 tab 04/28/21 extended release prazosin 1 mg capsule See Rx Instructions .ROUTE 05/08/21 .COMPLEX #90 cap albuterol sulfate 90 mcg/actuation 2 puff INHALATION Q4-6H PRN #8.5 05/17/21 aerosol inhaler gram duloxetine 60 mg capsule,delayed 60 mg PO BID #60 cap 06/11/21 release lamotrigine 200 mg tablet 200 mg PO BID #60 tab 06/11/21 tizanidine 4 mg capsule 4 mg PO BEDTIME PRN #30 cap 06/11/21 levothyroxine 50 mcg capsule 50 mcg PO DAILY #90 cap 07/01/21 pravastatin 40 mg tablet 40 mg PO BEDTIME #90 tab 07/01/21 valsartan 80 1 tab PO DAILY #90 tab 09/22/21 mg-hydrochlorothiazide 12.5 mg tablet metformin 500 mg tablet,extended See Rx Instructions .ROUTE 09/26/21 release 24 hr .COMPLEX #90 tab clonazepam 0.5 mg tablet 0.5 mg PO BID PRN #30 tab 10/16/21 Allergies Allergy/AdvReac Type Severity Reaction Status Date / Time amoxicillin Allergy Intermediate rash Verified 12/07/21 17:50 codeine Allergy Intermediate Vomiting, Verified 12/07/21 17:50 passes out latex Allergy Rash Verified 12/07/21 17:50 Review of Systems <Светлана Fierro PA-C - Last Filed: 12/07/21 20:04> Review of Systems Narrative: GENERAL: Denies fatigue, fever, or chills HEENT: Denies ear pain, vision changes, sore throat, or difficulty swallowing RESPIRATORY: Denies shortness of breath, cough, or wheezing CARDIOVASCULAR: Denies chest pain, pressure, palpitations, or edema GASTROINTESTINAL: Denies, nausea, vomiting, changes in bowel movements, or abdominal pain : Denies dysuria, frequency, hematuria, or flank pain MUSCULOSKELETAL: See HPI. SKIN: No rash, pruritis, or erythema NEUROLOGIC: Denies weakness, dizziness, headache, numbness, tingling or confusion PSYCHIATRIC: No concerning psychosocial issues. Patient History <Светлана Fierro PA-C - Last Filed: 12/07/21 20:04> Medical History Anxiety Atypical nevi Bladder pain Breast lump Cervical cancer screening Depression Dizziness Endometriosis Fibromyalgia Fibromyalgia History of UTI Hyperlipidemia Hypertelorism Hypertension Interstitial cystitis Irregular menstrual cycle Microscopic hematuria Migraine Pain of right breast PCOS (polycystic ovarian syndrome) Post traumatic stress disorder (PTSD) PTSD (post-traumatic stress disorder) Sleep apnea UTI (urinary tract infection) Surgical History H/O left wrist surgery History of tonsillectomy Hx of abdominal hysterectomy Hx of laparoscopy (~2002) S/P lumpectomy, right breast [place] teeth extracted Family History Grandmother Cancer Hyperlipidemia Hypertension Grandfather Diabetes mellitus Mother Interstitial cystitis Migraines Thyroid disorder UTI (urinary tract infection) Meniere disease Fibromyalgia Endometriosis Social History marital status: household members: spouse and friend(s) Smoking Status: Never smoker alcohol intake: never caffeine: Yes Smoking Status: Never smoker alcohol intake frequency: 0-2 drinks per day Substance Use Type: does not use Exam <Светлана Fierro PA-C - Last Filed: 12/07/21 20:04> Narrative Exam Narrative: GENERAL: 41 year old patient appears stated age. Well-developed patient, in mild distress. HEAD: Atraumatic. Normocephalic. EYES: Pupils equal round and reactive. Extraocular motions intact. No scleral icterus. No injection or drainage. ENT: Nose without bleeding, purulent drainage. Throat without erythema, tonsillar hypertrophy or exudate. Airway patent. NECK: Trachea midline. Non tender CARDIOVASCULAR: Regular rate and rhythm without murmurs, gallops, or rubs. RESPIRATORY: Clear to auscultation. Breath sounds equal bilaterally. No wheezes, rales, or rhonchi. GASTROINTESTINAL: Abdomen soft, non-tender, nondistended. EXTREMITIES: Minimally tender to palpation along left shoulder. Exhibits full ROM, sensation and strength intact. No erythema, swelling, or ecchymosis noted. Negative empty can test. Spine nontender to palpation. BACK: Nontender without deformity or crepitance. No flank tenderness. NEURO: AOx3. SKIN: No rash or erythema of visible areas Initial Vital Signs Initial Vital Signs: Vital Signs Temperature 98.0 F 12/07/21 17:48 Pulse Rate 103 H 12/07/21 17:48 Respiratory Rate 16 12/07/21 17:48 Blood Pressure 168/102 H 12/07/21 17:48 Pulse Oximetry 99 12/07/21 17:48 <Reinaldo Quinonez DO - Last Filed: 12/07/21 20:36> Initial Vital Signs Initial Vital Signs: Vital Signs Temperature 98.0 F 12/07/21 17:48 Pulse Rate 103 H 12/07/21 17:48 Respiratory Rate 16 12/07/21 17:48 Blood Pressure 168/102 H 12/07/21 17:48 Pulse Oximetry 99 12/07/21 17:48 Course <Светлана Fierro PA-C - Last Filed: 12/07/21 20:04> Orders Ordered: ED Orders 12/07/21 17:51 XR shoulder LT min 2V Stat EKG-12 Lead Stat Discontinued Medications Ketorolac Tromethamine (Ketorolac 30 Mg/Ml Vial) 15 mg IM NOW ONE Stop: 12/07/21 19:12 Last Admin: 12/07/21 19:17 Dose: 15 mg Documented by: CLARICE Vital Signs Vital signs: Vital Signs - 8 hr 12/07/21 17:48 12/07/21 19:26 Temperature 98.0 F Pulse Rate 103 H 70 Respiratory Rate 16 18 Blood Pressure 168/102 H 155/91 H Pulse Oximetry 99 98 <Reinaldo Quinonez DO - Last Filed: 12/07/21 20:36> Orders Ordered: ED Orders 12/07/21 17:51 XR shoulder LT min 2V Stat EKG-12 Lead Stat Discontinued Medications Ketorolac Tromethamine (Ketorolac 30 Mg/Ml Vial) 15 mg IM NOW ONE Stop: 12/07/21 19:12 Last Admin: 12/07/21 19:17 Dose: 15 mg Documented by: CLARICE Vital Signs Vital signs: Vital Signs - 8 hr 12/07/21 17:48 12/07/21 19:26 Temperature 98.0 F Pulse Rate 103 H 70 Respiratory Rate 16 18 Blood Pressure 168/102 H 155/91 H Pulse Oximetry 99 98 MDM - Extremity (Nontraumatic) <Светлана Fierro PA-C - Last Filed: 12/07/21 20:04> [facility] Narrative Medical decision making narrative: Patient is a 41-year-old female presenting with left shoulder pain for the past 3 days. X-ray was performed and came back as normal. Upon physical exam, pain was not reproducible upon palpation as patient states it is a deep pain, was triggered by movement and pressure. She exhibits full range of motion, full sensation, no weakness noted. She was nontender to palpation along spine. Based on the above, the patient is likely suffering from a muscle strain or nerve impingement. I encouraged her to follow up with her primary care provider for further evaluation and possible MRI or Ortho referral if symptoms persist. Encouraged rest, icing, limiting pressure, and taking ibuprofen as needed for pain and inflammation control. Encouraged her to return with extreme pain, swelling, numbness, tingling, or weakness, or any other concerning symptoms. Findings and discharge diagnosis discussed with patient/family followed by verbalization of understanding Return precautions discussed with patient/family whom verbalize understanding. Discharge Plan Departure Patient Disposition: Home Clinical Impression: Left arm pain, Shoulder blade pain Instructions: DI for Shoulder Pain Activity Restrictions/Additional Instructions: Today you were evaluated for left shoulder pain. As discussed, please rest, ice, limit pressure, and take ibuprofen as needed for pain and inflammation management. You should follow-up with your primary care provider for further evaluation, with possible MRI or orthopedic referral if symptoms persist. If you develop any numbness, tingling, extreme pain, or swelling please return back to the ER. *Please follow up with your primary care provider in 2-3 days, call for an appointment. Let them know you were seen in the Emergency Department and that we ask that you be seen in follow up. We will electronically transmit a record of today's note if your PCP is in our system *If you do not have a primary care provider please contact the [facility] at [phone] and they can help get you set up with a doctor in the community. *Return to Emergency Department if you should have any new, worsening or concerning symptoms, such as [fever greater than 101 F, shaking chills, worsening pain, persistent vomiting or other bothersome symptoms] Prescriptions: No Action prazosin 1 mg capsule See Rx Instructions .ROUTE .COMPLEX Qty: 90 3RF Dose Instruction: TAKE THREE CAPSULES BY MOUTH EVERY EVENING FOR NIGHTMARES FOR PTSD Rx Instructions: TAKE THREE CAPSULES BY MOUTH EVERY EVENING FOR NIGHTMARES FOR PTSD clonazepam 0.5 mg tablet 0.5 mg PO BID PRN (Reason: anxiety) Qty: 30 0RF propranolol 20 mg tablet 10 mg PO BID 0RF lamotrigine 200 mg tablet 200 mg PO BID Qty: 60 5RF duloxetine 60 mg capsule,delayed release(DR/EC) 60 mg PO BID Qty: 60 5RF tizanidine 4 mg capsule 4 mg PO BEDTIME PRN (Reason: muscle spasticity) Qty: 30 5RF bupropion HCl 300 mg tablet extended release 24 hr 300 mg PO QAM Qty: 30 5RF valsartan-hydrochlorothiazide 80-12.5 mg tablet 1 tab PO DAILY Qty: 90 3RF metformin 500 mg tablet extended release 24 hr See Rx Instructions .ROUTE .COMPLEX Qty: 90 0RF Dose Instruction: TAKE ONE TABLET BY MOUTH ONE TIME DAILY IN THE EVENING Rx Instructions: TAKE ONE TABLET BY MOUTH ONE TIME DAILY IN THE EVENING levothyroxine 50 mcg capsule 50 mcg PO DAILY Qty: 90 1RF pravastatin 40 mg tablet 40 mg PO BEDTIME Qty: 90 3RF lysine [L-Lysine] 500 mg Tablet 500 mg PO DAILY Qty: 0 0RF Centrum 50 1 tab PO DAILY 0RF albuterol sulfate 90 mcg/actuation HFA aerosol inhaler 2 puff INHALATION Q4-6H PRN (Reason: shortness of breath or wheezing) Qty: 8.5 0RF Referrals: Gonzalez Chan DO [Primary Care Provider] - <Reinaldo Quinonez DO - Last Filed: 12/07/21 20:36> [facility]: Dr Quinonez Co-Sign Statement: I was available for consultation during this patient's emergency department visit. This chart is signed by myself for administrative purposes only. I did not have direct contact with this patient during this visit. They were seen independently by the APC.
[2021-12-07] MEDS: KETOROLAC 30 MG/ML VIAL 15 MG IM (19:17)
[2021-12-07 19:26] VITALS: BP 155/91; PULSE 70; RESP 18; O2SAT 98
--- NOTE | 2021-12-07 19:27 | PC.NURSE ---
Pt reports tension headache for the past week.
== END 2021-12-07 19:32 | disposition home or self-care (01) ==
PROVIDERS: Emergency Provider Physician Assistant; PCP Family Medicine
DX: M25.512 Pain in left shoulder (principal); R07.9 Chest pain, unspecified
CPT/HCPCS: 73030; 93005; 96372; 99283; 99284; J1885

== ENCOUNTER → 2022-01-01 09:48 | Outpatient (CLI) | payer OTHER, SELFPAY ==
[2021-12-25 11:04] VITALS: BMI 46.8
[2022-01-01 11:06] LABS: Hemoglobin A1C% w Est Avg Glu 5.9 % (4.0-6.0)
[2022-01-01 11:11] LABS: Alanine Aminotransferase 19 IU/L (<35); Albumin 4.6 g/dL (3.5-5.0); Albumin Globulin Ratio 1.8 (1.0-2.8); Alkaline Phosphatase 48 U/L (38-126); Aspartate Aminotransferase 21 IU/L (14-36); BUN Creatinine Ratio 13.7 (6-22); Bilirubin Total 0.4 mg/dL (0.2-1.3); Blood Urea Nitrogen 10 mg/dL (7-17); Calcium 9.1 mg/dL (8.4-10.2); Carbon Dioxide 30 mmol/L (22-32); Chloride 101 mmol/L (98-107); Cholesterol 213 mg/dL (140-199); Estimated Glomerular Filt Rate > 60 mL/min (>60); Globulin 2.6 g/dL (1.7-4.1); Glucose 101 mg/dL (70-100); HDL Cholesterol 67 mg/dL (40-60); HEMOLYSIS < 15 (0-50); LDL Cholesterol Calculated 121 mg/dL (<100); Potassium 3.8 mmol/L (3.4-5.1); Sodium 135 mmol/L (137-145); Total Protein 7.2 g/dL (6.3-8.2); Triglycerides 127 mg/dL (35-150)
[2022-01-02 04:43] LABS: Free T4, Direct Thyroxine 1.02 ng/dL (0.78-2.19)
[2022-01-02 04:57] LABS: Thyroid Stimulating Hormone 2.37 uIU/mL (0.47-4.68)
== END ==
PROVIDERS: PCP Family Medicine; Referring Provider Family Medicine; Visit Provider Family Medicine
DX: R73.03 Prediabetes (principal); E78.5 Hyperlipidemia, unspecified; I10 Essential (primary) hypertension; D22.9 Melanocytic nevi, unspecified
CPT/HCPCS: 36415; 80053; 80061; 83036; 84439; 84443

== ENCOUNTER → 2022-05-20 08:55 | Outpatient (CLI) | payer OTHER, SELFPAY ==
[2021-12-25 11:04] VITALS: BMI 46.8
[2022-05-20 09:57] LABS: Add Manual Diff / Slide Review NO; Basophils Absolute Auto 0 /uL (0-100); Basophils Percent Auto 0.4 % (0-2); Eosinophils Absolute Auto 200 /uL (0-450); Eosinophils Percent Auto 2.5 % (2-4); Hematocrit 38.2 % (36-46); Hemoglobin 12.9 g/dL (12.0-16.0); Lymphocytes Absolute Auto 2600 /uL (1100-4500); Lymphocytes Percent Auto 36.1 % (25-40); Mean Corpuscular HGB Conc 33.8 % (30-36); Mean Corpuscular Hemoglobin 29.5 PG (26-34); Mean Corpuscular Volume 87.3 fL (80-100); Monocytes Absolute Auto 500 /uL (0-900); Monocytes Percent Auto 7.5 % (3-14); Neutrophils Absolute Auto 3800 /uL (1500-7000); Neutrophils Percent Auto 53.5 % (50-75); Platelet Count 296 X10^3/uL (150-400); Red Blood Cell Count 4.38 X10^6/uL (4.0-5.2); Red Cell Distribution Width 13.1 % (11.6-14.8); White Blood Cell Count 7.1 X10^3/uL (4.5-11.0)
[2022-05-20 10:16] LABS: Hemoglobin A1C% w Est Avg Glu 6.1 % (4.0-6.0)
[2022-05-20 10:28] LABS: Alanine Aminotransferase 20 IU/L (<35); Albumin 4.3 g/dL (3.5-5.0); Albumin Globulin Ratio 1.7 (1.0-2.8); Alkaline Phosphatase 45 U/L (38-126); Aspartate Aminotransferase 17 IU/L (14-36); BUN Creatinine Ratio 12.2 (6-22); Bilirubin Total 0.5 mg/dL (0.2-1.3); Blood Urea Nitrogen 9 mg/dL (7-17); Calcium 8.9 mg/dL (8.4-10.2); Carbon Dioxide 25 mmol/L (22-32); Chloride 101 mmol/L (98-107); Cholesterol 198 mg/dL (140-199); Estimated Glomerular Filt Rate > 60 mL/min (>60); Globulin 2.6 g/dL (1.7-4.1); Glucose 101 mg/dL (70-100); HDL Cholesterol 66 mg/dL (40-60); HEMOLYSIS < 15 (0-50); LDL Cholesterol Calculated 98 mg/dL (<100); Potassium 4.1 mmol/L (3.4-5.1); Sodium 135 mmol/L (137-145); Total Protein 6.9 g/dL (6.3-8.2); Triglycerides 170 mg/dL (35-150)
[2022-05-20 10:56] LABS: TSH w/ Reflex to FT4 2.44 uIU/mL (0.47-4.68)
== END ==
PROVIDERS: PCP Family Medicine; Referring Provider Family Medicine; Visit Provider Family Medicine
DX: E03.9 Hypothyroidism, unspecified (principal); R73.03 Prediabetes; E78.5 Hyperlipidemia, unspecified; R42 Dizziness and giddiness
CPT/HCPCS: 36415; 80053; 80061; 83036; 84443; 85025

== ENCOUNTER → 2022-10-27 13:39 | Outpatient (CLI) | payer OTHER, SELFPAY ==
[2021-12-25 11:04] VITALS: BMI 46.8
[2022-10-27 14:08] LABS: Add Manual Diff / Slide Review NO; Basophils Absolute Auto 0 /uL (0-100); Basophils Percent Auto 0.3 % (0-2); Eosinophils Absolute Auto 200 /uL (0-450); Eosinophils Percent Auto 1.7 % (2-4); Hematocrit 40.2 % (36-46); Hemoglobin 13.4 g/dL (12.0-16.0); Lymphocytes Absolute Auto 2400 /uL (1100-4500); Lymphocytes Percent Auto 26.5 % (25-40); Mean Corpuscular HGB Conc 33.3 % (30-36); Mean Corpuscular Hemoglobin 29.1 PG (26-34); Mean Corpuscular Volume 87.6 fL (80-100); Monocytes Absolute Auto 600 /uL (0-900); Monocytes Percent Auto 6.3 % (3-14); Neutrophils Absolute Auto 5900 /uL (1500-7000); Neutrophils Percent Auto 65.2 % (50-75); Platelet Count 314 X10^3/uL (150-400); Red Blood Cell Count 4.59 X10^6/uL (4.0-5.2); Red Cell Distribution Width 13.1 % (11.6-14.8)
[2022-10-27 14:25] LABS: Appearance Urine UA SL CLOUDY; Bilirubin Urine UA NEGATIVE (NEGATIVE); Color Urine UA YELLOW; Glucose Urine UA NEGATIVE (Negative); Ketones Urine UA NEGATIVE (NEGATIVE); Leukocyte Esterase Urine UA NEGATIVE (NEGATIVE); Nitrite Urine UA NEGATIVE (Negative); Occult Blood Urine UA TRACE-INTACT (Negative); Protein Urine UA NEGATIVE (Negative); Urobilinogen Urine UA 0.2 E.U./dL (0.2)
[2022-10-27 14:29] LABS: Alanine Aminotransferase 21 IU/L (<35); Albumin 4.1 g/dL (3.5-5.0); Albumin Globulin Ratio 1.5 (1.0-2.8); Alkaline Phosphatase 43 U/L (38-126); Aspartate Aminotransferase 19 IU/L (14-36); BUN Creatinine Ratio 14.5 (6-22); Bilirubin Total 0.5 mg/dL (0.2-1.3); Blood Urea Nitrogen 9 mg/dL (7-17); Calcium 9.3 mg/dL (8.4-10.2); Carbon Dioxide 26 mmol/L (22-32); Chloride 103 mmol/L (98-107); Cholesterol 187 mg/dL (140-199); Estimated Glomerular Filt Rate > 60 mL/min (>60); Globulin 2.7 g/dL (1.7-4.1); Glucose 107 mg/dL (70-100); HDL Cholesterol 62 mg/dL (40-60); HEMOLYSIS < 15 (0-50); LDL Cholesterol Calculated 87 mg/dL (<100); Potassium 3.9 mmol/L (3.4-5.1); Sodium 136 mmol/L (137-145); Total Protein 6.8 g/dL (6.3-8.2); Triglycerides 190 mg/dL (35-150)
[2022-10-27 14:36] LABS: RBC Urine 0-1/HPF (0-5/HPF); Squamous Epithelial Cell Urine 1-5 /HPF (0-5/HPF); WBC Urine 0-1/HPF (0-5/HPF)
[2022-10-27 14:37] LABS: Bacteria Urine Few (2-10); Culture Indicated Urine Cult Not Indicated
[2022-10-27 14:45] LABS: Free T4, Direct Thyroxine 1.23 ng/dL (0.78-2.19)
[2022-10-27 14:59] LABS: Thyroid Stimulating Hormone 0.306 uIU/mL (0.47-4.68)
[2022-10-28 02:36] LABS: x Labcorp Estim. Avg Glu (eAG) 128 mg/dL (.); x Labcorp Hemoglobin A1c 6.1 % (4.8-5.6)
== END ==
PROVIDERS: PCP Family Medicine; Referring Provider Family Medicine; Visit Provider Family Medicine
DX: E78.5 Hyperlipidemia, unspecified (principal); I10 Essential (primary) hypertension; E03.9 Hypothyroidism, unspecified; R73.03 Prediabetes
CPT/HCPCS: 36415; 80053; 80061; 81001; 83036; 84439; 84443; 85025

== ENCOUNTER → 2022-12-08 14:45 | Outpatient (CLI) | payer OTHER, SELFPAY ==
[2021-12-25 11:04] VITALS: BMI 46.8
--- NOTE | 2022-12-08 14:47 | DI.RAD.S_ITS ---
PROCEDURE: XR LUMBAR SPINE 2-3V INDICATIONS: Worsening hip/groin/leg pain TECHNIQUE: 3 views of the lumbar spine were acquired. COMPARISON: None. FINDINGS: Bones: 5 [id number] vertebrae are present. There is normal bony alignment. No vertebral body compression fractures. No suspicious bony lesions. Intervertebral disc height normally preserved at all levels. Mild L1-L2, L3-L4, L4-L5 and L5-S1 degenerative disc changes. Soft tissues: Overlying bowel gas pattern is normal. No suspicious soft tissue calcifications. IMPRESSION: 1. Multilevel degenerative disc disease. 2. No acute osseous lesion. If symptoms and/or clinical suspicion for pathology persists, evaluation with MRI should be considered for further assessment. Dictated by: Susie Logan MD, PhD on 12/08/2022 at 15:38 Approved by: Susie Logan MD, PhD on 12/08/2022 at 15:39
--- NOTE | 2022-12-08 14:47 | DI.RAD.S_ITS ---
PROCEDURE: XR HIP W PEL IF DONE REGINA MIN 4V INDICATIONS: Worsening hip/groin/leg pain TECHNIQUE: AP pelvis with lateral view(s) of the right and left hip(s). COMPARISON: None. FINDINGS: Bones: No fractures or dislocations. Pelvic ring appears intact. No suspicious bony lesions. Soft tissues: The visualized bowel gas pattern is normal. No suspicious soft tissue calcifications. IMPRESSION: No osseous lesion. If symptoms and/or clinical suspicion for pathology persists, further assessment with advanced imaging (e.g. CT, MRI or bone scan) should be considered. Dictated by: Susie Logan MD, PhD on 12/08/2022 at 15:47 Approved by: Susie Logan MD, PhD on 12/08/2022 at 15:47
== END ==
PROVIDERS: PCP Family Medicine; Referring Provider Family Medicine; Visit Provider Family Medicine
DX: M51.16 Intervertebral disc disorders with radiculopathy, lumbar region (principal); M51.17 Intervertebral disc disorders with radiculopathy, lumbosacral region; M25.551 Pain in right hip; M25.552 Pain in left hip
CPT/HCPCS: 72100; 73522

== ENCOUNTER → 2023-02-23 16:30 | Outpatient (CLI) | payer OTHER, SELFPAY ==
[2021-12-25 11:04] VITALS: BMI 46.8
[2023-02-23 18:18] LABS: Add Manual Diff / Slide Review NO; Basophils Absolute Auto 0 /uL (0-100); Basophils Percent Auto 0.4 % (0-2); Eosinophils Absolute Auto 200 /uL (0-450); Eosinophils Percent Auto 1.9 % (2-4); Hematocrit 43.6 % (36-46); Hemoglobin 14.9 g/dL (12.0-16.0); Lymphocytes Absolute Auto 2200 /uL (1100-4500); Lymphocytes Percent Auto 25.4 % (25-40); Mean Corpuscular HGB Conc 34.1 % (30-36); Mean Corpuscular Hemoglobin 29.4 PG (26-34); Mean Corpuscular Volume 86.1 fL (80-100); Monocytes Absolute Auto 600 /uL (0-900); Monocytes Percent Auto 7.3 % (3-14); Neutrophils Absolute Auto 5600 /uL (1500-7000); Platelet Count 419 X10^3/uL (150-400); Red Blood Cell Count 5.06 X10^6/uL (4.0-5.2); Red Cell Distribution Width 13.3 % (11.6-14.8); White Blood Cell Count 8.7 X10^3/uL (4.5-11.0)
[2023-02-23 18:34] LABS: Alanine Aminotransferase 29 IU/L (<35); Albumin Globulin Ratio 1.5 (1.0-2.8); Alkaline Phosphatase 50 U/L (38-126); Aspartate Aminotransferase 27 IU/L (14-36); BUN Creatinine Ratio 9.5 (6-22); Bilirubin Total 0.9 mg/dL (0.2-1.3); Blood Urea Nitrogen 8 mg/dL (7-17); Calcium 9.7 mg/dL (8.4-10.2); Carbon Dioxide 26 mmol/L (22-32); Chloride 97 mmol/L (98-107); Cholesterol 233 mg/dL (140-199); Estimated Glomerular Filt Rate > 60 mL/min (>60); Globulin 3.3 g/dL (1.7-4.1); Glucose 105 mg/dL (70-100); HDL Cholesterol 81 mg/dL (40-60); HEMOLYSIS < 15 (0-50); LDL Cholesterol Calculated 107 mg/dL (<100); Potassium 3.7 mmol/L (3.4-5.1); Sodium 134 mmol/L (137-145); Total Protein 8.3 g/dL (6.3-8.2); Triglycerides 227 mg/dL (35-150)
[2023-02-23 18:54] LABS: Free T4, Direct Thyroxine 1.41 ng/dL (0.78-2.19)
[2023-02-23 19:08] LABS: Thyroid Stimulating Hormone 0.082 uIU/mL (0.47-4.68)
[2023-02-24 05:25] LABS: x Labcorp Estim. Avg Glu (eAG) 120 mg/dL (.); x Labcorp Hemoglobin A1c 5.8 % (4.8-5.6)
== END ==
PROVIDERS: PCP Family Medicine; Referring Provider Family Medicine; Visit Provider Family Medicine
DX: E03.9 Hypothyroidism, unspecified (principal); E78.00 Pure hypercholesterolemia, unspecified; R73.03 Prediabetes; I10 Essential (primary) hypertension; N30.10 Interstitial cystitis (chronic) without hematuria; J45.20 Mild intermittent asthma, uncomplicated; F33.2 Major depressive disorder, recurrent severe without psychotic features; F41.0 Panic disorder [episodic paroxysmal anxiety]; F43.12 Post-traumatic stress disorder, chronic; F51.04 Psychophysiologic insomnia
CPT/HCPCS: 80053; 80061; 83036; 84439; 84443; 85025; 99214

== ENCOUNTER → 2023-03-02 17:23 | Outpatient (CLI) | payer OTHER, SELFPAY ==
[2021-12-25 11:04] VITALS: BMI 46.8
[2023-03-02 18:14] LABS: Appearance Urine UA CLEAR; Bilirubin Urine UA NEGATIVE (NEGATIVE); Color Urine UA YELLOW; Glucose Urine UA NEGATIVE (Negative); Ketones Urine UA NEGATIVE (NEGATIVE); Leukocyte Esterase Urine UA NEGATIVE (NEGATIVE); Nitrite Urine UA NEGATIVE (Negative); Occult Blood Urine UA NEGATIVE (Negative); Protein Urine UA NEGATIVE (Negative); Specific Gravity Urine UA <=1.005 (1.000-1.035); Urobilinogen Urine UA 0.2 E.U./dL (0.2)
[2023-03-02 20:05] LABS: Bacteria Urine Moderate (10-30); Culture Indicated Urine Cult Not Indicated; RBC Urine None Seen (0-5/HPF); Squamous Epithelial Cell Urine 1-5 /HPF (0-5/HPF); WBC Urine None Seen (0-5/HPF); pH Urine UA 5.5 (4.5-8.0)
== END ==
PROVIDERS: PCP Family Medicine; Referring Provider Family Medicine; Visit Provider Family Medicine
DX: R31.29 Other microscopic hematuria (principal)
CPT/HCPCS: 81001

== ENCOUNTER 2023-04-06 14:55 | Emergency (ER) | payer OTHER, SELFPAY ==
[2021-12-25 11:04] VITALS: BMI 46.8
[2023-04-06 15:15] VITALS: BP 122/92; PULSE 100; RESP 17; TEMP 36.6; O2SAT 96; BMI 43.0
--- NOTE | 2023-04-06 15:44 | ED_ITS ---
HPI - General Adult General Chief complaint: Abdominal Pain Stated complaint: ab pain increasing T-14/SOB/N/ lower back pain Time Seen by Provider: 04/06/23 15:39 Source: patient Mode of arrival: Ambulatory History of Present Illness HPI narrative: Patient is a 42-year-old female who is here for evaluation of 2 weeks of daily worsening periumbilical abdominal discomfort. She has not had any nausea or vomiting. She does have history of irritable bowel but states that her bowel movements have been normal over the past couple weeks. Having a bowel movement and urination does not change the discomfort. She has had a laparoscopy for endometriosis and also hysterectomy. She has a history of PCOS as well. She also states she is having lower back discomfort. She occasionally has issues with shortness of breath and some nausea and diaphoresis but that does not seem to be associated with the abdominal pain. This has been going on for the past couple months. Related Data Home Medications Medication Instructions Recorded Confirmed Centrum 50 1 tab PO DAILY 08/11/19 03/02/23 lysine 500 mg tablet (L-Lysine) 500 mg PO DAILY ##0 08/11/19 03/02/23 Previous Rx's Medication Instructions Recorded lisinopril 10 mg tablet 10 mg PO DAILY #90 tabs 01/01/22 clonazepam 0.5 mg tablet 0.5 mg PO BID PRN anxiety #30 tabs 01/15/22 lamotrigine 200 mg tablet 200 mg PO BID #180 tabs 01/15/22 albuterol sulfate 90 mcg/actuation 2 puff inhalation Q4-6H PRN 05/29/22 aerosol inhaler shortness of breath or wheezing #8.5 grams pravastatin 40 mg tablet 40 mg PO BEDTIME #90 tabs 06/11/22 propranolol 20 mg tablet 20 mg PO BID Anxiety #180 tabs 09/08/22 tizanidine 4 mg tablet 4 mg PO BEDTIME #90 tabs 09/08/22 levothyroxine 88 mcg tablet 88 mcg PO DAILY #90 tabs 10/30/22 valsartan 80 1 tab PO DAILY #90 tabs 10/30/22 mg-hydrochlorothiazide 12.5 mg tablet metformin 500 mg tablet,extended 500 mg PO DAILY #90 tabs 02/04/23 release 24 hr prazosin 1 mg capsule 3 mg PO QPM #90 caps 02/17/23 bupropion HCl 300 mg 24 hr tablet, 300 mg PO QAM #90 tabs 02/23/23 extended release duloxetine 60 mg capsule,delayed 60 mg PO BID #180 caps 02/23/23 release Allergies Allergy/AdvReac Type Severity Reaction Status Date / Time amoxicillin Allergy Intermediate rash Verified 04/06/23 15:17 codeine Allergy Intermediate Vomiting, Verified 04/06/23 15:17 passes out latex Allergy Rash Verified 04/06/23 15:17 Review of Systems Review of Systems ROS Unobtainable: All systems reviewed & are unremarkable except as noted in HPI and below Patient History Medical History Anxiety Asthma Atypical nevi Bladder pain Breast lump Cervical cancer screening Chronic lower back pain Depression Dizziness Endometriosis Fibromyalgia Fibromyalgia History of UTI Hyperlipidemia Hypertelorism Hypertension Hypothyroid Interstitial cystitis Irregular menstrual cycle Microscopic hematuria Migraine Pain of right breast PCOS (polycystic ovarian syndrome) Post traumatic stress disorder (PTSD) Prediabetes PTSD (post-traumatic stress disorder) Right shoulder strain Sleep apnea Strain of tendon of left rotator cuff UTI (urinary tract infection) Well adult exam Surgical History H/O left wrist surgery History of tonsillectomy Hx of abdominal hysterectomy Hx of laparoscopy (~2002) S/P lumpectomy, right breast [place] teeth extracted Family History Grandmother Cancer Hyperlipidemia Hypertension Grandfather Diabetes mellitus Mother Interstitial cystitis Migraines Thyroid disorder UTI (urinary tract infection) Meniere disease Fibromyalgia Endometriosis Social History marital status: household members: spouse and friend(s) Smoking Status: Never smoker alcohol intake: never caffeine: Yes Smoking Status: Never smoker alcohol intake frequency: 0-2 drinks per day Substance Use Type: does not use Exam Initial Vital Signs Initial Vital Signs: Vital Signs Temperature 98 F 04/06/23 15:15 Pulse Rate 100 H 04/06/23 15:15 Respiratory Rate 17 04/06/23 15:15 Blood Pressure 122/92 H 04/06/23 15:15 Pulse Oximetry 96 04/06/23 15:15 Oxygen Delivery Method Room Air 09/26/23 15:15 Const General: cooperative, comfortable and No ill appearing [facility] Head: normal to inspection and normocephalic Resp Effort & Inspection: normal respiratory effort Auscultation: clear to auscultation bilaterally Cardio Rate: regular rate Rhythm: regular rhythm GI Inspection: normal to inspection Palpation: soft, No firm, No guarding and No tender Skin General: no rashes or lesions noted Neuro General: patient alert, patient awake and moves all extremities Cognition: normal cognition Speech: speech normal Extrem General: normal to inspection and capillary refill normal Course Orders Ordered: ED Orders 04/06/23 15:50 Complete Blood Count AUTO DIFF Stat Comprehensive Metabolic Panel Stat Lipase Stat 04/06/23 17:34 CT abdomen pelvis w con Stat Ondansetron HCl (Ondansetron 4 Mg Odt) 4 mg PO NOW PRN PRN Reason: Nausea And Vomiting Ondansetron HCl (Ondansetron 4 Mg/2 Ml Inj) 4 mg IV NOW PRN PRN Reason: Nausea And Vomiting Vital Signs Vital signs: Vital Signs - 8 hr 04/06/23 15:15 Temperature 98 F Pulse Rate 100 H Respiratory Rate 17 Blood Pressure 122/92 H Pulse Oximetry 96 Oxygen Delivery Method Room Air Medical Decision Making Lab Data Lab results reviewed: Yes I reviewed the patient's lab results. 04/06/23 15:50 04/06/23 15:50 Labs: Lab Results 04/06/23 04/06/23 Range/Units 15:50 15:50 WBC 9.2 (4.5-11.0) X10^3/uL RBC 4.74 (4.0-5.2) X10^6/uL Hgb 13.9 (12.0-16.0) g/dL Hct 41.0 (36-46) % MCV 86.4 (80-100) fL MCH 29.2 (26-34) PG MCHC 33.8 (30-36) % RDW 13.1 (11.6-14.8) % Plt Count 335 (150-400) X10^3/uL Neut % (Auto) 63.9 (50-75) % Lymph % (Auto) 27.4 (25-40) % [place] % (Auto) 6.8 (3-14) % Eos % (Auto) 1.5 L (2-4) % Baso % (Auto) 0.4 (0-2) % Neut # (Auto) 5900 (4081-5109) /uL Lymph # (Auto) 2500 (4660-3179) /uL [place] # (Auto) 600 (0-900) /uL Eos # (Auto) 100 (0-450) /uL Baso # (Auto) 0 (0-100) /uL Sodium 137 (137-145) mmol/L Potassium 3.7 (3.4-5.1) mmol/L Chloride 105 (98-107) mmol/L Carbon Dioxide 22 (22-32) mmol/L BUN 11 (7-17) mg/dL Creatinine 0.61 (0.52-1.04) mg/dL Estimated GFR > 60 (>60) mL/min BUN/Creatinine Ratio 18.0 (6-22) Glucose 146 H (70-100) mg/dL Calcium 10.0 (8.4-10.2) mg/dL Total Bilirubin 0.6 (0.2-1.3) mg/dL AST 20 (14-36) IU/L ALT 24 (<35) IU/L Alkaline Phosphatase 39 (38-126) U/L Total Protein 7.5 (6.3-8.2) g/dL Albumin 4.5 (3.5-5.0) g/dL Globulin 3.0 (1.7-4.1) g/dL Albumin/Globulin Ratio 1.5 (1.0-2.8) Lipase 71 (23-300) U/L Urine Dip Bedside Urine Glucose Negative Bedside Urine Bilirubin - Negative Bedside Urine Ketone - Negative Urine Specific [place] 1.025 Bedside Urine Occult Blood - Negative Bedside Urine Protein - Negative Bedside Urine Urobilinogen - Negative Bedside Urine Nitrite - Negative Bedside Urine Leukocytes - Negative Esterase Point of care testing: Urine Dip Bedside Urine Glucose Negative Bedside Urine Bilirubin - Negative Bedside Urine Ketone - Negative Urine Specific [place] 1.025 Bedside Urine Occult Blood - Negative Bedside Urine Protein - Negative Bedside Urine Urobilinogen - Negative Bedside Urine Nitrite - Negative Bedside Urine Leukocytes - Negative Esterase Imaging Data CT scan - abdomen/pelvis: Radiologist's Impression: PROCEDURE:? CT ABDOMEN PELVIS W CON ? INDICATIONS:? Periumbilical abdominal pain ? TECHNIQUE:? After the administration of intravenous contrast, axial sections acquired from the lung bases to the pubic symphysis.? Coronal and sagittal reformats were performed.? For radiation dose reduction, the following was used:? automated exposure control, adjustment of mA and/or kV according to patient size.? ? COMPARISON:? [facility], CT, CT ABDOMEN PELVIS W CON, 10/01/2020, 17:55.? [facility], CT, CT ABDOMEN PELVIS W CON, 08/11/2019, 13:55. ? FINDINGS:? Image quality:? Excellent.? ? Lung bases:? Unremarkable. Heart:? No significant findings. ? ABDOMEN: Liver:? Unremarkable.? ? Gallbladder:? Unremarkable.? ? Biliary ducts:? Unremarkable.? ? Pancreas:? Unremarkable.? ? Spleen:? Unremarkable.? ? Adrenal Glands:? Unremarkable.? ? Kidneys and Ureters:? Unremarkable.? ? ? Stomach and Bowel:? Small hiatal hernia.? Stomach, small bowel loops, and colon are unremarkable.? Normal appendix. Peritoneum:? No abnormal intraperitoneal fluid.? No free air.? ? Ventral Wall: ? No hernias.? Abdominal Nodes:? No retroperitoneal or mesenteric adenopathy by size criteria.? Vessels:? Aorta and inferior vena cava are normal in size.? ? PELVIS: Pelvic Organs:? Unremarkable.? ? Bladder:? Unremarkable.? ? Pelvic Nodes: No enlarged lymph nodes.? Miscellaneous: No hernias are seen. ? ? ? Bones:? Unremarkable.? IMPRESSION:? 1. No acute process. 2. Normal appendix. 3. Small hiatal hernia. [facility] Narrative Medical decision making narrative: Patient has had 2 weeks of symptoms. Workup here in the emergency department is very reassuring. Low suspicion for an acute surgical issue. No indication for admission to the hospital. No indication for antibiotics. Recommended that she start on a proton pump inhibitor. Have her contact her primary doctor for follow-up. She was given return precautions. She expressed understanding and agreement with plan Discharge Plan Departure Patient Disposition: Home Clinical Impression: Abdominal pain Instructions: DI for Abdominal Pain-Adult Activity Restrictions/Additional Instructions: Recommend that you continue to take all of your medications as directed. You should consider taking a ulcer medicine in a class caught a proton pump inhibitor. An example would include Nexium or omeprazole or Prilosec or esomeprazole. I also recommend you contact your primary doctor for a follow-up. Return to the emergency department for new or worsening symptoms. Prescriptions: No Action propranolol 20 mg tablet 20 mg PO BID Qty: 180 3RF tizanidine 4 mg tablet 4 mg PO BEDTIME Qty: 90 3RF bupropion HCl 300 mg tablet extended release 24 hr 300 mg PO QAM Qty: 90 3RF duloxetine 60 mg capsule,delayed release(DR/EC) 60 mg PO BID Qty: 180 3RF clonazepam 0.5 mg tablet 0.5 mg PO BID PRN (Reason: anxiety) Qty: 30 0RF lamotrigine 200 mg tablet 200 mg PO BID Qty: 180 3RF lisinopril 10 mg tablet 10 mg PO DAILY Qty: 90 1RF pravastatin 40 mg tablet 40 mg PO BEDTIME Qty: 90 3RF metformin 500 mg tablet extended release 24 hr 500 mg PO DAILY Qty: 90 1RF prazosin 1 mg capsule 3 mg PO QPM Qty: 90 2RF Rx Instructions: TAKE THREE CAPSULES BY MOUTH EVERY EVENING FOR NIGHTMARES FOR PTSD albuterol sulfate 90 mcg/actuation HFA aerosol inhaler 2 puff INHALATION Q4-6H PRN (Reason: shortness of breath or wheezing) Qty: 8.5 1RF levothyroxine 88 mcg tablet 88 mcg PO DAILY Qty: 90 1RF valsartan-hydrochlorothiazide 80-12.5 mg tablet 1 tab PO DAILY Qty: 90 3RF lysine [L-Lysine] 500 mg Tablet 500 mg PO DAILY Qty: 0 Centrum 50 1 tab PO DAILY Referrals: Gonzalez Chan DO [Primary Care Provider] - Stand Alone Forms: Patient Portal/API
[2023-04-06 16:01] LABS: Add Manual Diff / Slide Review NO; Basophils Absolute Auto 0 /uL (0-100); Basophils Percent Auto 0.4 % (0-2); Eosinophils Absolute Auto 100 /uL (0-450); Eosinophils Percent Auto 1.5 % (2-4); Hemoglobin 13.9 g/dL (12.0-16.0); Lymphocytes Absolute Auto 2500 /uL (1100-4500); Lymphocytes Percent Auto 27.4 % (25-40); Mean Corpuscular HGB Conc 33.8 % (30-36); Mean Corpuscular Hemoglobin 29.2 PG (26-34); Mean Corpuscular Volume 86.4 fL (80-100); Monocytes Absolute Auto 600 /uL (0-900); Monocytes Percent Auto 6.8 % (3-14); Neutrophils Absolute Auto 5900 /uL (1500-7000); Neutrophils Percent Auto 63.9 % (50-75); Platelet Count 335 X10^3/uL (150-400); Red Blood Cell Count 4.74 X10^6/uL (4.0-5.2); Red Cell Distribution Width 13.1 % (11.6-14.8); White Blood Cell Count 9.2 X10^3/uL (4.5-11.0)
[2023-04-06 16:10] LABS: Alanine Aminotransferase 24 IU/L (<35); Albumin 4.5 g/dL (3.5-5.0); Albumin Globulin Ratio 1.5 (1.0-2.8); Alkaline Phosphatase 39 U/L (38-126); Aspartate Aminotransferase 20 IU/L (14-36); Bilirubin Total 0.6 mg/dL (0.2-1.3); Blood Urea Nitrogen 11 mg/dL (7-17); Carbon Dioxide 22 mmol/L (22-32); Chloride 105 mmol/L (98-107); Estimated Glomerular Filt Rate > 60 mL/min (>60); Glucose 146 mg/dL (70-100); HEMOLYSIS < 15 (0-50); Lipase 71 U/L (23-300); Potassium 3.7 mmol/L (3.4-5.1); Sodium 137 mmol/L (137-145); Total Protein 7.5 g/dL (6.3-8.2)
[2023-04-06 16:30] VITALS: BP 114/58; PULSE 89; RESP 16; O2SAT 95
--- NOTE | 2023-04-06 17:34 | DI.CT.S_ITS ---
PROCEDURE: CT ABDOMEN PELVIS W CON INDICATIONS: Periumbilical abdominal pain TECHNIQUE: After the administration of intravenous contrast, axial sections acquired from the lung bases to the pubic symphysis. Coronal and sagittal reformats were performed. For radiation dose reduction, the following was used: automated exposure control, adjustment of mA and/or kV according to patient size. COMPARISON: [facility], CT, CT ABDOMEN PELVIS W CON, 10/01/2020, 17:55. [facility], CT, CT ABDOMEN PELVIS W CON, 08/11/2019, 13:55. FINDINGS: Image quality: Excellent. Lung bases: Unremarkable. Heart: No significant findings. ABDOMEN: Liver: Unremarkable. Gallbladder: Unremarkable. Biliary ducts: Unremarkable. Pancreas: Unremarkable. Spleen: Unremarkable. Adrenal Glands: Unremarkable. Kidneys and Ureters: Unremarkable. Stomach and Bowel: Small hiatal hernia. Stomach, small bowel loops, and colon are unremarkable. Normal appendix. Peritoneum: No abnormal intraperitoneal fluid. No free air. Ventral Wall: No hernias. Abdominal Nodes: No retroperitoneal or mesenteric adenopathy by size criteria. Vessels: Aorta and inferior vena cava are normal in size. PELVIS: Pelvic Organs: Unremarkable. Bladder: Unremarkable. Pelvic Nodes: No enlarged lymph nodes. Miscellaneous: No hernias are seen. Bones: Unremarkable. IMPRESSION: 1. No acute process. 2. Normal appendix. 3. Small hiatal hernia. Dictated by: Elodia Carpenter M.D. on 04/06/2023 at 17:36 Approved by: Elodia Carpenter M.D. on 04/06/2023 at 17:38
[2023-04-06 18:00] VITALS: BP 119/69; PULSE 89; RESP 14; O2SAT 96
[2023-04-06 18:09] VITALS: BP 119/69
[2023-04-06 18:30] VITALS: BP 116/75; PULSE 75; RESP 16; O2SAT 96
== END 2023-04-06 18:35 | disposition home or self-care (01) ==
PROVIDERS: Emergency Provider Emergency Medicine; PCP Family Medicine
DX: R10.33 Periumbilical pain (principal); Z79.899 Other long term (current) drug therapy
CPT/HCPCS: 36415; 74177; 80053; 81003; 83690; 85025; 99284; Q9967

== ENCOUNTER → 2023-10-26 16:33 | Outpatient (CLI) | payer OTHER, SELFPAY ==
[2021-12-25 11:04] VITALS: BMI 46.8
--- NOTE | 2023-10-26 16:35 | DI.MRI.S_ITS ---
PROCEDURE: MR LUMBAR SPINE WO CON INDICATIONS: eval low back pain TECHNIQUE: Noncontrast sagittal T1 spin echo and T2 fast echo, sagittal STIR, and T2 fast spin echo through the lumbar spine. In cases with scoliosis, additional coronal T2 fast spin echo may be performed. COMPARISON: [facility], CT, CT ABDOMEN PELVIS W CON, 04/06/2023, 17:26. [facility], CR, XR ABDOMEN 1 VIEW, 08/27/2023, 15:42. FINDINGS: Image quality: Excellent. Alignment and Curvature: There is normal bony alignment. Bone Marrow: Marrow is of normal overall signal. No acute vertebral body compression fractures. Spinal Cord: Conus medullaris terminates at the L1 level. Visualized cord demonstrates normal signal and size. Paraspinous Soft Tissues: No paravertebral masses. T12-L1: Normal appearance. L1-L2: Normal appearance. L2-L3: The disc height and disk signal are well-preserved. Mild disc bulge is seen, which is eccentric to the right. There is mild right-sided and no left-sided neural foraminal narrowing. No significant central canal narrowing is seen. L3-L4: The disc height and disk signal are well-preserved. Mild generalized disc bulge is seen. Mild facet joint hypertrophy is seen. No significant neural foraminal or central canal narrowing can be seen. L4-L5: Mild loss of disc height is seen. Loss of disc signal is seen. Mild generalized disc bulge is seen. There is a superimposed central/right disc protrusion, with an associated annular fissure. Mild bilateral neural foraminal narrowing is seen. Mild central canal narrowing is seen. L5-S1: The disc height is well-preserved. Loss of disc signal is seen at this level. Mild disc bulge is seen, with a mild superimposed central/right disc protrusion. Mild facet joint hypertrophy is seen. Minimal bilateral neural foraminal narrowing can be seen. Mild central canal narrowing is seen, which is largely caused by epidural lipomatosis. IMPRESSION: Focal lower lumbar spine degenerative changes are seen. Dictated by: Rajesh Ventura M.D. on 10/27/2023 at 10:31 Approved by: Rajesh Ventura M.D. on 10/27/2023 at 10:34
== END ==
LOC: MRI 16:35
PROVIDERS: PCP Family Medicine; Referring Provider Family Medicine; Visit Provider Family Medicine
DX: M47.816 Spondylosis without myelopathy or radiculopathy, lumbar region (principal); M47.817 Spondylosis without myelopathy or radiculopathy, lumbosacral region; M54.50 Low back pain, unspecified; G89.29 Other chronic pain
CPT/HCPCS: 72148

== ENCOUNTER 2023-11-02 18:14 | Emergency (ER) | payer OTHER, SELFPAY ==
[2021-12-25 11:04] VITALS: BMI 46.8
[2023-11-02 18:36] VITALS: BP 127/90; PULSE 81; RESP 16; TEMP 36.2; O2SAT 96; BMI 42.0
--- NOTE | 2023-11-02 18:43 | DI.RAD.S_ITS ---
PROCEDURE: XR CHEST 1V INDICATIONS: chest pain TECHNIQUE: One view of the chest was acquired. COMPARISON: [facility], CR, XR CHEST 1V, 05/17/2021, 14:31. FINDINGS: Surgical changes and devices: None. Lungs and pleura: Lungs are clear. No pleural effusions or pneumothorax. Mediastinum: Mediastinal contours appear normal. Heart size is normal. Bones and chest wall: No suspicious bony lesions. Overlying soft tissues appear unremarkable. IMPRESSION: No acute cardiopulmonary abnormality is seen. Approved by: Elena Valdovinos M.D.,Ph.D. on 11/02/2023 at 19:56
--- NOTE | 2023-11-02 18:53 | ED_ITS ---
HPI - Syncope General Chief Complaint: Syncope Stated Complaint: Syncope, hit head, Time Seen by Provider: 11/02/23 18:52 Mode of arrival: Ambulatory History of Present Illness HPI narrative: 43-year-old female with history of fibromyalgia, anxiety, depression, PTSD, hyperlipidemia, prediabetes on metformin presents by private vehicle from home for evaluation after a syncopal event at home. Patient states that several weeks ago she had a trip and fall and landed on the right side of her body. Since then she has had a somewhat fuzzy head and has had occasional difficulty in word finding. Today she fell lower abdominal cramping and had a bowel movement. Immediately after standing up she felt lightheaded and passed out, hitting her head on the ground and losing consciousness. She states that when she talks it feels like her head is inside of a tin can and she feels very fuzzy Related Data Home Medications Medication Instructions Recorded Confirmed Centrum 50 1 tab PO DAILY 08/11/19 09/17/23 lysine 500 mg tablet (L-Lysine) 500 mg PO DAILY ##0 08/11/19 09/17/23 Previous Rx's Medication Instructions Recorded clonazepam 0.5 mg tablet 0.5 mg PO BID PRN anxiety #30 tabs 01/15/22 albuterol sulfate 90 mcg/actuation 2 puff inhalation Q4-6H PRN 05/29/22 aerosol inhaler shortness of breath or wheezing #8.5 grams tizanidine 4 mg tablet 4 mg PO BEDTIME #90 tabs 09/08/22 valsartan 80 1 tab PO DAILY #90 tabs 10/30/22 mg-hydrochlorothiazide 12.5 mg tablet prazosin 1 mg capsule 3 mg (3 x 1 mg) PO QPM #90 caps 02/17/23 bupropion HCl 300 mg 24 hr tablet, 300 mg PO QAM #90 tabs 02/23/23 extended release duloxetine 60 mg capsule,delayed 60 mg PO BID #180 caps 02/23/23 release metformin 500 mg tablet,extended 500 mg PO DAILY #90 tabs 08/02/23 release 24 hr propranolol 20 mg tablet 20 mg PO BID Anxiety #180 tabs 08/10/23 lamotrigine 200 mg tablet 200 mg PO BID #180 tabs 08/11/23 levothyroxine 88 mcg tablet 88 mcg PO DAILY #90 tabs 10/07/23 lovastatin 10 mg tablet 10 mg PO BEDTIME #90 tabs 10/11/23 Allergies Allergy/AdvReac Type Severity Reaction Status Date / Time amoxicillin Allergy Intermediate rash Verified 11/02/23 18:42 codeine Allergy Intermediate Vomiting, Verified 11/02/23 18:42 passes out latex Allergy Rash Verified 11/02/23 18:42 Review of Systems Review of Systems Narrative: see HPI Patient History Medical History Left hip pain Right shoulder strain Chronic lower back pain Well adult exam Asthma Prediabetes Strain of tendon of left rotator cuff Hypothyroid Atypical nevi Breast lump Irregular menstrual cycle Cervical cancer screening Pain of right breast Fibromyalgia Sleep apnea History of UTI Microscopic hematuria Bladder pain Migraine UTI (urinary tract infection) Dizziness Interstitial cystitis PTSD (post-traumatic stress disorder) Fibromyalgia PCOS (polycystic ovarian syndrome) Hyperlipidemia Hypertension Endometriosis Hypertelorism Anxiety Post traumatic stress disorder (PTSD) Depression Surgical History Hx of abdominal hysterectomy H/O left wrist surgery [place] teeth extracted History of tonsillectomy S/P lumpectomy, right breast Hx of laparoscopy (~2002) Family History Grandmother Cancer Hyperlipidemia Hypertension Grandfather Diabetes mellitus Mother Interstitial cystitis Migraines Thyroid disorder UTI (urinary tract infection) Meniere disease Fibromyalgia Endometriosis Social History marital status: household members: spouse and friend(s) Smoking Status: Never smoker alcohol intake: never caffeine: Yes Smoking Status: Never smoker alcohol intake frequency: 0-2 drinks per day Substance Use Type: does not use Exam Initial Vital Signs Initial Vital Signs: Vital Signs Temperature 97.1 F L 11/02/23 18:36 Pulse Rate 81 11/02/23 18:36 Respiratory Rate 16 11/02/23 18:36 Blood Pressure 127/90 11/02/23 18:36 Pulse Oximetry 96 11/02/23 18:36 Oxygen Delivery Method Room Air 11/02/23 18:36 Const: Awake, alert, no acute distress, nontoxic appearing Cardiac: regular rate, regular rhythm RESP: unlabored, clear bilaterally, no wheezing Skin: Warm, Dry, intact, no rashes Neuro: AO x3, CN II-XII grossly intact, moves all extremities Course Orders Ordered: ED Orders 11/02/23 18:43 XR chest 1V Stat EKG-12 Lead Stat 11/02/23 18:52 CT head/brain wo con Stat 11/02/23 18:57 Complete Blood Count AUTO DIFF Stat Comprehensive Metabolic Panel Stat Lipase Stat Magnesium Stat PTT Partial Thromboplastin [place] Stat Prothrombin Time INR Stat Troponin & CK Cardiac Panel Stat Discontinued Medications Aspirin (Aspirin 81 Mg Chew Tab) 324 mg PO NOW ONE Stop: 11/02/23 18:44 Vital Signs Vital signs: Vital Signs - 8 hr 11/02/23 18:36 11/02/23 20:41 Temperature 97.1 F L Pulse Rate 81 68 Respiratory Rate 16 16 Blood Pressure 127/90 114/84 Pulse Oximetry 96 97 Oxygen Delivery Method Room Air Room Air MDM - Syncope Lab Data 11/02/23 18:57 11/02/23 18:57 Labs: Lab Results 11/02/23 Range/Units 18:57 WBC 11.8 H (4.5-11.0) X10^3/uL RBC 4.62 (4.0-5.2) X10^6/uL Hgb 13.8 (12.0-16.0) g/dL Hct 40.8 (36-46) % MCV 88.3 (80-100) fL MCH 29.8 (26-34) PG MCHC 33.7 (30-36) % RDW 13.1 (11.6-14.8) % Plt Count 375 (150-400) X10^3/uL Neut % (Auto) 79.4 H (50-75) % Lymph % (Auto) 15.0 L (25-40) % [place] % (Auto) 4.8 (3-14) % Eos % (Auto) 0.7 L (2-4) % Baso % (Auto) 0.1 (0-2) % Neut # (Auto) 9400 H (8226-8267) /uL Lymph # (Auto) 1800 (0690-6461) /uL [place] # (Auto) 600 (0-900) /uL Eos # (Auto) 100 (0-450) /uL Baso # (Auto) 0 (0-100) /uL PT 11.4 (9.4-12.5) SECONDS INR 1.0 (0.9-1.3) APTT 33 (25.1-36.5) SECONDS Sodium 138 (137-145) mmol/L Potassium 3.8 (3.4-5.1) mmol/L Chloride 102 (98-107) mmol/L Carbon Dioxide 28 (22-32) mmol/L BUN 15 (7-17) mg/dL Creatinine 0.89 (0.52-1.04) mg/dL Estimated GFR > 60 (>60) mL/min BUN/Creatinine Ratio 16.9 (6-22) Glucose 95 (70-100) mg/dL Calcium 10.3 H (8.4-10.2) mg/dL Magnesium 2.0 (1.6-2.3) mg/dL Total Bilirubin 0.5 (0.2-1.3) mg/dL AST 24 (14-36) IU/L ALT 28 (<35) IU/L Alkaline Phosphatase 45 (38-126) U/L Total Creatine Kinase 46 (30-135) U/L Troponin I < 0.012 (0.01-0.034) ng/mL Total Protein 7.7 (6.3-8.2) g/dL Albumin 4.8 (3.5-5.0) g/dL Globulin 2.9 (1.7-4.1) g/dL Albumin/Globulin Ratio 1.7 (1.0-2.8) Lipase 71 (23-300) U/L Imaging Data CT scan - head: Radiologist's Impression: PROCEDURE: CT HEAD/BRAIN WO CON INDICATIONS: syncope with head injury x2, BRAIN FOG/MEMORY ISSUES TECHNIQUE: Noncontrast 4.5 mm thick angled axial sections acquired from the foramen magnum to the vertex, with coronal and sagittal reformats. For radiation dose reduction, the following was used: automated exposure control, adjustment of mA and/or kV according to patient size. COMPARISON: [facility], CT, CT HEAD/BRAIN WO CON, 05/30/2020, 9:59. FINDINGS: Image quality: Mild streak artifact can be seen through the skull base. CSF spaces: Basal cisterns are patent. No extra-axial fluid collections. Ventricles are normal in size and shape. Brain: No midline shift. No intracranial masses or hemorrhage. Ramirez-white matter interface is normal. Skull and face: Calvarium and visualized facial bones are intact, without suspicious lesions. Incidental note is made of hyperostosis frontalis. This is not considered to be pathologic in a woman of this age. Sinuses: Visualized sinuses and mastoids are clear. IMPRESSION: Noncontrast head CT within normal limits, stable from prior. Dictated by: Rajesh Ventura M.D. on 11/02/2023 at 18:36 Approved by: Rajesh Ventura M.D. on 11/02/2023 at 18:36 Chest x-ray: Radiologist's Impression: PROCEDURE: XR CHEST 1V INDICATIONS: chest pain TECHNIQUE: One view of the chest was acquired. COMPARISON: [facility], , XR CHEST 1V, 05/17/2021, 14:31. FINDINGS: Surgical changes and devices: None. Lungs and pleura: Lungs are clear. No pleural effusions or pneumothorax. Mediastinum: Mediastinal contours appear normal. Heart size is normal. Bones and chest wall: No suspicious bony lesions. Overlying soft tissues appear unremarkable. IMPRESSION: No acute cardiopulmonary abnormality is seen. Approved by: Elena Valdovinos M.D.,Ph.D. on 11/02/2023 at 19:56 ECG Data Interpretation: Normal sinus rhythm at 62 beats per minute. QTC 414, [place] normal, no ST T wave changes MDM Narrative Medical decision making narrative: Nontoxic patient presenting for syncopal episode and fogginess with word-finding difficulties after 2 head injuries. Patient's description of syncopal event seems vasovagal in nature especially since it happened after having a bowel movement and standing up to button her pants. EKG is normal sinus rhythm without concerning findings. Since patient has had persistent symptoms after 3 weeks and just had a repeat head injury we will order CT scan of the brain. Laboratory work is reviewed, WBC count 11.8, hemoglobin 13.8, platelets 375, sodium 138, potassium 3.8, creatinine 0.89, troponin undetectable. Chest x-ray negative for acute findings. CT head negative for acute findings. Patient reassessed, resting comfortably in bed. Discussed all lab and imaging findings with the patient as well as likely diagnosis of vasovagal syncope. Patient relieved to know that her CT brain is normal and we will follow up with her primary care physician. Recommended brain rest for symptoms after head injury including decreasing screen time, getting plenty of rest, and avoiding bright lights and loud noises. Discharge Plan Departure Patient Disposition: Home Clinical Impression: Syncope, Head injury Instructions: DI for Concussion, DI for Syncope in Adults (Fainting) Activity Restrictions/Additional Instructions: Your laboratory work and CT imaging were normal today. Follow up with your primary care physician. Get lots of rest, drink plenty of fluids, and minimize her screen time to help improve your symptoms. Prescriptions: No Action tizanidine 4 mg tablet 4 mg PO BEDTIME Qty: 90 3RF bupropion HCl 300 mg tablet extended release 24 hr 300 mg PO QAM Qty: 90 3RF duloxetine 60 mg capsule,delayed release(DR/EC) 60 mg PO BID Qty: 180 3RF lamotrigine 200 mg tablet 200 mg PO BID Qty: 180 1RF Rx Instructions: Take 200mg (1 tab) twice daily clonazepam 0.5 mg tablet 0.5 mg PO BID PRN (Reason: anxiety) Qty: 30 0RF prazosin 1 mg capsule 3 mg PO QPM Qty: 90 2RF Rx Instructions: TAKE THREE CAPSULES BY MOUTH EVERY EVENING FOR NIGHTMARES FOR PTSD metformin 500 mg tablet extended release 24 hr 500 mg PO DAILY Qty: 90 1RF propranolol 20 mg tablet 20 mg PO BID Qty: 180 3RF levothyroxine 88 mcg tablet 88 mcg PO DAILY Qty: 90 1RF lovastatin 10 mg tablet 10 mg PO BEDTIME Qty: 90 1RF Rx Instructions: start taking 10 mg of lovastatin albuterol sulfate 90 mcg/actuation HFA aerosol inhaler 2 puff INHALATION Q4-6H PRN (Reason: shortness of breath or wheezing) Qty: 8.5 1RF valsartan-hydrochlorothiazide 80-12.5 mg tablet 1 tab PO DAILY Qty: 90 3RF lysine [L-Lysine] 500 mg Tablet 500 mg PO DAILY Qty: 0 Centrum 50 1 tab PO DAILY Referrals: Gonzalez Chan DO [Primary Care Provider] - Stand Alone Forms: Patient Portal/API
[2023-11-02 19:05] LABS: Add Manual Diff / Slide Review NO; Basophils Absolute Auto 0 /uL (0-100); Basophils Percent Auto 0.1 % (0-2); Eosinophils Absolute Auto 100 /uL (0-450); Eosinophils Percent Auto 0.7 % (2-4); Hematocrit 40.8 % (36-46); Hemoglobin 13.8 g/dL (12.0-16.0); Lymphocytes Absolute Auto 1800 /uL (1100-4500); Mean Corpuscular HGB Conc 33.7 % (30-36); Mean Corpuscular Hemoglobin 29.8 PG (26-34); Mean Corpuscular Volume 88.3 fL (80-100); Monocytes Absolute Auto 600 /uL (0-900); Monocytes Percent Auto 4.8 % (3-14); Neutrophils Absolute Auto 9400 /uL (1500-7000); Neutrophils Percent Auto 79.4 % (50-75); Platelet Count 375 X10^3/uL (150-400); Red Blood Cell Count 4.62 X10^6/uL (4.0-5.2); Red Cell Distribution Width 13.1 % (11.6-14.8); White Blood Cell Count 11.8 X10^3/uL (4.5-11.0)
[2023-11-02 19:13] LABS: Prothrombin Time 11.4 SECONDS (9.4-12.5)
[2023-11-02 19:15] LABS: PTT Partial Thromboplastin Tim 33 SECONDS (25.1-36.5)
[2023-11-02 19:21] LABS: Alanine Aminotransferase 28 IU/L (<35); Albumin 4.8 g/dL (3.5-5.0); Albumin Globulin Ratio 1.7 (1.0-2.8); Alkaline Phosphatase 45 U/L (38-126); Aspartate Aminotransferase 24 IU/L (14-36); BUN Creatinine Ratio 16.9 (6-22); Bilirubin Total 0.5 mg/dL (0.2-1.3); Blood Urea Nitrogen 15 mg/dL (7-17); Calcium 10.3 mg/dL (8.4-10.2); Carbon Dioxide 28 mmol/L (22-32); Chloride 102 mmol/L (98-107); Creatine Kinase 46 U/L (30-135); Estimated Glomerular Filt Rate > 60 mL/min (>60); Globulin 2.9 g/dL (1.7-4.1); Glucose 95 mg/dL (70-100); HEMOLYSIS < 15 (0-50); Lipase 71 U/L (23-300); Potassium 3.8 mmol/L (3.4-5.1); Sodium 138 mmol/L (137-145); Total Protein 7.7 g/dL (6.3-8.2)
[2023-11-02 19:32] LABS: Troponin I < 0.012 ng/mL (0.01-0.034)
[2023-11-02 20:41] VITALS: BP 114/84; PULSE 68; RESP 16; O2SAT 97
== END 2023-11-02 20:46 | disposition home or self-care (01) ==
PROVIDERS: Emergency Medicine; Emergency Provider Emergency Medicine; PCP Family Medicine
DX: R55 Syncope and collapse (principal); S09.90XA Unspecified injury of head, initial encounter; W18.30XA Fall on same level, unspecified, initial encounter
CPT/HCPCS: 36415; 70450; 71045; 80053; 82550; 83690; 83735; 84484; 85025; 85610; 85730; 93005; 99283; 99284

== ENCOUNTER → 2023-12-08 10:05 | Outpatient (CLI) | payer OTHER, SELFPAY ==
[2021-12-25 11:04] VITALS: BMI 46.8
--- NOTE | 2023-12-08 10:07 | DI.US.S_ITS ---
ULTRASOUND OF RIGHT BREAST: 12/08/2023 CLINICAL: Palpable right breast lump by physician. Palpable right breast lump and focal pain. Palpable right breast lump. Comparison is made to exams dated: 12/08/2023 mammogram, 01/17/2021 ultrasound, 01/17/2021 mammogram - [facility], 04/25/2014 mammogram, and 12/27/2008 mammogram - outside facility. Real-time ultrasound of the right breast was performed on the area of interest. IMPRESSION: NEGATIVE There is no sonographic evidence of malignancy. There is no mammographic or sonographic abnormality seen in the right breast to correspond with the palpable abnormality, however, clinical followup is recommended. Return to annual mammogram screening schedule is recommended. This exam was interpreted at Station ID: [id number]. Electronically Signed By: Kassie schmidt/:12/08/2023 11:30:00 Entry: - 12/09/2023 15:00:12 letter sent: Clinical Evaluation Ultrasound BI-RADS: 1 Negative
--- NOTE | 2023-12-08 10:07 | DI.MG.S_ITS ---
BILATERAL DIGITAL DIAGNOSTIC MAMMOGRAM 3D/2D: 12/08/2023 CLINICAL: Right breast Lump. Comparison is made to exams dated: 01/17/2021 ultrasound, 01/17/2021 mammogram - [facility], 04/25/2014 mammogram, and 12/27/2008 mammogram - outside facility. There are scattered areas of fibroglandular density in both breasts (category b / 25%-50% glandular tissue). No significant masses, calcifications, or other findings are seen in either breast. IMPRESSION: INCOMPLETE: NEEDS ADDITIONAL IMAGING EVALUATION There is no mammographic abnormality seen in the right breast to correspond with the palpable abnormality, however, targeted ultrasound of the right breast is recommended and will be performed immediately following this exam. Based on the Tyrer Cuzick model (a risk assessment model) the patient's lifetime risk is 6.4% and her 10 year risk is 1.1%. According to the ACR, ACS, and NCCN guidelines, an annual breast MRI exam along with mammogram is recommended if the patient's lifetime risk is 20% or greater. This exam was interpreted at Station ID: [id number]. NOTE: For mammograms, a report in lay terms will be sent to the patient. Approximately 15% of breast malignancies will not be visualized mammographically. In the management of a palpable breast mass, a negative mammogram must not discourage biopsy of a clinically suspicious lesion. Electronically Signed By: Kassie Beyer M.D. lk/:12/08/2023 11:03:58 ACR BI-RADS Category 0: Incomplete [id number]
== END ==
LOC: MAMMO 10:05
PROVIDERS: PCP Family Medicine; Referring Provider Physician Assistant Medical; Visit Provider Physician Assistant Medical
DX: R92.2 Inconclusive mammogram (principal); N63.12 Unspecified lump in the right breast, upper inner quadrant; R92.323 Mammographic fibroglandular density, bilateral breasts
CPT/HCPCS: 76642; 77066; G0279

== ENCOUNTER → 2023-12-27 10:55 | Outpatient (CLI) | payer OTHER, SELFPAY ==
[2021-12-25 11:04] VITALS: BMI 46.8
[2023-12-27 12:17] LABS: Add Manual Diff / Slide Review NO; Basophils Absolute Auto 0 /uL (0-100); Basophils Percent Auto 0.4 % (0-2); Eosinophils Absolute Auto 200 /uL (0-450); Eosinophils Percent Auto 2.1 % (2-4); Lymphocytes Absolute Auto 2700 /uL (1100-4500); Lymphocytes Percent Auto 32.5 % (25-40); Mean Corpuscular HGB Conc 34.2 % (30-36); Mean Corpuscular Hemoglobin 30.3 PG (26-34); Mean Corpuscular Volume 88.7 fL (80-100); Monocytes Absolute Auto 700 /uL (0-900); Monocytes Percent Auto 7.9 % (3-14); Neutrophils Absolute Auto 4800 /uL (1500-7000); Neutrophils Percent Auto 57.1 % (50-75); Platelet Count 345 X10^3/uL (150-400); Red Blood Cell Count 4.28 X10^6/uL (4.0-5.2); Red Cell Distribution Width 13.4 % (11.6-14.8); White Blood Cell Count 8.4 X10^3/uL (4.5-11.0)
[2023-12-27 12:31] LABS: Hemoglobin A1C% w Est Avg Glu 5.5 % (4.0-6.0)
[2023-12-27 12:36] LABS: Alanine Aminotransferase 16 IU/L (<35); Albumin 4.3 g/dL (3.5-5.0); Albumin Globulin Ratio 1.5 (1.0-2.8); Alkaline Phosphatase 47 U/L (38-126); Aspartate Aminotransferase 20 IU/L (14-36); BUN Creatinine Ratio 18.7 (6-22); Bilirubin Total 0.5 mg/dL (0.2-1.3); Blood Urea Nitrogen 14 mg/dL (7-17); Calcium 8.7 mg/dL (8.4-10.2); Carbon Dioxide 24 mmol/L (22-32); Chloride 107 mmol/L (98-107); Cholesterol 221 mg/dL (140-199); Estimated Glomerular Filt Rate > 60 mL/min (>60); Globulin 2.8 g/dL (1.7-4.1); Glucose 106 mg/dL (70-100); HDL Cholesterol 77 mg/dL (40-60); HEMOLYSIS < 15 (0-50); LDL Cholesterol Calculated 122 mg/dL (<100); Potassium 3.6 mmol/L (3.4-5.1); Sodium 138 mmol/L (137-145); Total Protein 7.1 g/dL (6.3-8.2); Triglycerides 109 mg/dL (35-150)
[2023-12-27 13:01] LABS: Free T4, Direct Thyroxine 1.07 ng/dL (0.78-2.19)
[2023-12-27 13:15] LABS: Thyroid Stimulating Hormone 1.44 uIU/mL (0.47-4.68)
== END ==
PROVIDERS: PCP Family Medicine; Referring Provider Family Medicine; Visit Provider Family Medicine
DX: R73.03 Prediabetes (principal); E03.9 Hypothyroidism, unspecified; E78.5 Hyperlipidemia, unspecified; I10 Essential (primary) hypertension
CPT/HCPCS: 36415; 80053; 80061; 83036; 84439; 84443; 85025

== ENCOUNTER → 2024-02-14 09:43 | Outpatient (CLI) | payer OTHER, SELFPAY ==
[2021-12-25 11:04] VITALS: BMI 46.8
== END ==
PROVIDERS: PCP Family Medicine; Referring Provider Psychiatry & Neurology Psychiatry; Visit Provider Psychiatry & Neurology Psychiatry
DX: Z79.899 Other long term (current) drug therapy (principal)
CPT/HCPCS: 36415; 80175

== ENCOUNTER 2024-07-21 21:55 | Emergency (ER) | payer OTHER, SELFPAY ==
[2021-12-25 11:04] VITALS: BMI 46.8
[2024-07-21 21:58] VITALS: BP 140/81; PULSE 91; RESP 18; TEMP 36.6; O2SAT 99; BMI 44.6
--- NOTE | 2024-07-21 22:34 | ED_ITS ---
HPI - Extremity Problem General Chief complaint: Extremity Problem,Nontraumatic Stated complaint: R Thigh Pain/Injury Time Seen by Provider: 07/21/24 22:21 Source: patient and family Mode of arrival: Family Vehicle History of Present Illness HPI Narrative: Patient was a 44-year-old female who is here for evaluation of discomfort to her right thigh. She states she was had pain in this area for several months without a specific injury but it was never had it evaluated. Yesterday she went to go stand up from lying down on the couch and had a intense pain/pop sensation on the outside of her right leg. States that it felt like there was liquid in the area. Has had pain in that area since then. Worse with lying down. He was able to walk. Did not fall. No skin changes over the area. Related Data Home Medications Medication Instructions Recorded Confirmed Centrum 50 1 tab PO DAILY 08/11/19 11/18/23 lysine 500 mg tablet (L-Lysine) 500 mg PO DAILY ##0 08/11/19 11/18/23 Previous Rx's Medication Instructions Recorded albuterol sulfate 90 mcg/actuation 2 puff inhalation Q4-6H PRN 05/29/22 aerosol inhaler shortness of breath or wheezing #8.5 grams propranolol 20 mg tablet 20 mg PO BID Anxiety #180 tabs 08/10/23 lamotrigine 200 mg tablet 200 mg PO BID #180 tabs 11/17/23 metformin 500 mg tablet,extended 500 mg PO DAILY #90 tabs 02/02/24 release 24 hr tizanidine 4 mg tablet 4 mg PO BEDTIME #90 tabs 02/08/24 prazosin 1 mg capsule 3 mg (3 x 1 mg) PO QPM #90 caps 03/09/24 levothyroxine 88 mcg tablet 88 mcg PO DAILY #90 tabs 04/03/24 lovastatin 10 mg tablet 10 mg PO BEDTIME #90 tabs 04/03/24 bupropion HCl 300 mg 24 hr tablet, 300 mg PO QAM #90 tabs 05/02/24 extended release duloxetine 60 mg capsule,delayed 60 mg PO BID #180 caps 05/02/24 release clonazepam 0.5 mg tablet 0.5 mg PO BID PRN anxiety #30 tabs 05/11/24 Allergies Allergy/AdvReac Type Severity Reaction Status Date / Time amoxicillin Allergy Intermediate rash Verified 11/18/23 12:48 codeine Allergy Intermediate Vomiting, Verified 11/18/23 12:48 passes out latex Allergy Rash Verified 11/18/23 12:48 Review of Systems Review of Systems Narrative: See HPI Patient History Medical History Perimenopausal symptoms Concussion Left hip pain Right shoulder strain Chronic lower back pain Well adult exam Asthma Prediabetes Strain of tendon of left rotator cuff Hypothyroid Atypical nevi Breast lump Irregular menstrual cycle Cervical cancer screening Pain of right breast Fibromyalgia Sleep apnea History of UTI Microscopic hematuria Bladder pain Migraine UTI (urinary tract infection) Dizziness Interstitial cystitis PTSD (post-traumatic stress disorder) Fibromyalgia PCOS (polycystic ovarian syndrome) Hyperlipidemia Hypertension Endometriosis Hypertelorism Anxiety Post traumatic stress disorder (PTSD) Depression Surgical History Hx of abdominal hysterectomy H/O left wrist surgery [place] teeth extracted History of tonsillectomy S/P lumpectomy, right breast Hx of laparoscopy (~2002) Family History Grandmother Cancer Hyperlipidemia Hypertension Grandfather Diabetes mellitus Mother Interstitial cystitis Migraines Thyroid disorder UTI (urinary tract infection) Meniere disease Fibromyalgia Endometriosis Social History marital status: household members: spouse and friend(s) Smoking Status: Never smoker alcohol intake: never caffeine: Yes Smoking Status: Never smoker alcohol intake frequency: 0-2 drinks per day Exam Initial Vital Signs Initial Vital Signs: Vital Signs Temperature 97.9 F 07/21/24 21:58 Pulse Rate 91 H 07/21/24 21:58 Respiratory Rate 18 07/21/24 21:58 Blood Pressure 140/81 07/21/24 21:58 Pulse Oximetry 99 07/21/24 21:58 Oxygen Delivery Method Room Air 07/21/24 21:58 Skin General: no rashes or lesions noted Extrem Other: Discomfort to palpation over the lateral hamstring muscle on the right. Her patellar tendon is intact. Quadriceps tendon is intact. She was able to do a straight leg raise. Course Vital Signs Vital signs: Vital Signs - 8 hr 07/21/24 21:58 Temperature 97.9 F Pulse Rate 91 H Respiratory Rate 18 Blood Pressure 140/81 Pulse Oximetry 99 Oxygen Delivery Method Room Air MDM - Extremity (Nontraumatic) MDM Narrative Medical decision making narrative: I have low suspicion for fracture. There indication for any radiologic studies. Low suspicion that this is a DVT, cellulitis. I do suspect that this is muscular. Most likely pulled the lateral hamstring muscle. Discuss this with her. Provided reassurance. We discussed conservative measures and follow up instructions. She expressed understanding and agreement. Discharge Plan Departure Patient Disposition: Home Clinical Impression: Muscle strain of thigh Instructions: DI for Muscle Strain Activity Restrictions/Additional Instructions: Continue to take all of your medications as directed. Contact your primary care doctor for a follow-up. Return to the emergency department for new or worsening symptoms. Prescriptions: No Action lamotrigine 200 mg tablet 200 mg PO BID Qty: 180 3RF Rx Instructions: Take 200mg (1 tab) twice daily clonazepam 0.5 mg tablet 0.5 mg PO BID PRN (Reason: anxiety) Qty: 30 0RF propranolol 20 mg tablet 20 mg PO BID Qty: 180 3RF metformin 500 mg tablet extended release 24 hr 500 mg PO DAILY Qty: 90 1RF tizanidine 4 mg tablet 4 mg PO BEDTIME Qty: 90 3RF prazosin 1 mg capsule 3 mg PO QPM Qty: 90 2RF Rx Instructions: TAKE THREE CAPSULES BY MOUTH EVERY EVENING FOR NIGHTMARES FOR PTSD lovastatin 10 mg tablet 10 mg PO BEDTIME Qty: 90 1RF Rx Instructions: start taking 10 mg of lovastatin levothyroxine 88 mcg tablet 88 mcg PO DAILY Qty: 90 1RF bupropion HCl 300 mg tablet extended release 24 hr 300 mg PO QAM Qty: 90 3RF duloxetine 60 mg capsule,delayed release(DR/EC) 60 mg PO BID Qty: 180 3RF albuterol sulfate 90 mcg/actuation HFA aerosol inhaler 2 puff INHALATION Q4-6H PRN (Reason: shortness of breath or wheezing) Qty: 8.5 1RF lysine [L-Lysine] 500 mg Tablet 500 mg PO DAILY Qty: 0 Centrum 50 1 tab PO DAILY Referrals: Gonzalez Chan DO [Primary Care Provider] - Stand Alone Forms: Patient Portal/API/Survey
== END 2024-07-21 22:44 | disposition home or self-care (01) ==
PROVIDERS: Emergency Provider Emergency Medicine; PCP Family Medicine
DX: S76.911A Strain of unspecified muscles, fascia and tendons at thigh level, right thigh, initial encounter (principal)
CPT/HCPCS: 99281

== ENCOUNTER 2024-10-02 12:58 | Emergency (ER) | payer OTHER, SELFPAY ==
[2021-12-25 11:04] VITALS: BMI 46.8
[2024-10-02] VITALS (13 sets, daily range): BP systolic 126–146; BP diastolic 64–81; PULSE 63–86; RESP 17; TEMP 36.4; O2SAT 95–98; BMI 44.6
[2024-10-02 14:26] LABS: Add Manual Diff / Slide Review NO; Basophils Absolute Auto 100 /uL (0-100); Basophils Percent Auto 0.5 % (0-2); Eosinophils Absolute Auto 300 /uL (0-450); Eosinophils Percent Auto 1.8 % (2-4); Hematocrit 41.9 % (36-46); Hemoglobin 14.2 g/dL (12.0-16.0); Lymphocytes Absolute Auto 3700 /uL (1100-4500); Lymphocytes Percent Auto 21.8 % (25-40); Mean Corpuscular HGB Conc 33.9 % (30-36); Mean Corpuscular Hemoglobin 29.8 PG (26-34); Monocytes Absolute Auto 1300 /uL (0-900); Monocytes Percent Auto 7.7 % (3-14); Neutrophils Absolute Auto 11400 /uL (1500-7000); Neutrophils Percent Auto 68.2 % (50-75); Platelet Count 368 X10^3/uL (150-400); Red Blood Cell Count 4.76 X10^6/uL (4.0-5.2); Red Cell Distribution Width 12.7 % (11.6-14.8); White Blood Cell Count 16.7 X10^3/uL (4.5-11.0)
[2024-10-02 14:39] LABS: Prothrombin Time 11.8 SECONDS (9.4-12.5)
[2024-10-02 14:42] LABS: Alanine Aminotransferase 25 IU/L (<35); Albumin 4.5 g/dL (3.5-5.0); Albumin Globulin Ratio 1.5 (1.0-2.8); Alkaline Phosphatase 52 U/L (38-126); Aspartate Aminotransferase 27 IU/L (14-36); BUN Creatinine Ratio 15.7 (6-22); Bilirubin Total 0.5 mg/dL (0.2-1.3); Blood Urea Nitrogen 13 mg/dL (7-17); Calcium 9.3 mg/dL (8.4-10.2); Carbon Dioxide 23 mmol/L (22-32); Chloride 102 mmol/L (98-107); Estimated Glomerular Filt Rate > 60 mL/min (>60); Glucose 142 mg/dL (70-100); HEMOLYSIS < 15 (0-50); PTT Partial Thromboplastin Tim 31 SECONDS (25.1-36.5); Potassium 3.6 mmol/L (3.4-5.1); Sodium 136 mmol/L (137-145); Total Protein 7.5 g/dL (6.3-8.2)
[2024-10-02 16:45] LABS: Bacteria Urine Moderate (10-30); Culture Indicated Urine Specimen Cultured; Mucus Urine 1+ (Negative); RBC Urine 0-1/HPF (0-5/HPF); Squamous Epithelial Cell Urine 5-10 /HPF (0-5/HPF); Urine Volume 10mL (spun); WBC Urine 0-1/HPF (0-5/HPF)
--- NOTE | 2024-10-02 16:46 | ED.GIBLEED ---
HPI - GI Bleed General Chief complaint: GI Bleed Stated complaint: Blood in stool, Stomach pain,almost passed out Time Seen by Provider: 10/02/24 15:29 Source: patient Mode of arrival: Ambulatory History of Present Illness HPI Narrative: Patient 44-year-old female history hypothyroid hypertension prediabetes presenting today with rectal bleeding. She reports that it has been ongoing for the last 4 days. She was pretty having pretty intensive abdominal pain as well. 3 days ago she had pain she was trying to have a bowel movement and then she passed out to the bath tub. She has shown me pictures of the bloody stool. She was also reports that she was just having blood tissue and blood clots as well. No dizziness or lightheadedness no chest pain or shortness of breath. No fever or chills. Related Data Home Medications Medication Instructions Recorded Confirmed lysine 500 mg tablet (L-Lysine) 500 mg PO DAILY ##0 08/11/19 09/15/24 blue-green algae (bulk) (Spirulina 1 ea miscellaneous DAILY 09/15/24 09/15/24 powder) coenzyme Q10 100 mg capsule 100 mg PO DAILY 09/15/24 09/15/24 vitamin B complex 1 tab PO DAILY 09/15/24 09/15/24 Previous Rx's Medication Instructions Recorded albuterol sulfate 90 mcg/actuation 2 puff inhalation Q4-6H PRN 05/29/22 aerosol inhaler shortness of breath or wheezing #8.5 grams propranolol 20 mg tablet 20 mg PO BID Anxiety #180 tabs 08/10/23 lamotrigine 200 mg tablet 200 mg PO BID #180 tabs 11/17/23 tizanidine 4 mg tablet 4 mg PO BEDTIME #90 tabs 02/08/24 lovastatin 10 mg tablet 10 mg PO BEDTIME #90 tabs 04/03/24 bupropion HCl 300 mg 24 hr tablet, 300 mg PO QAM #90 tabs 05/02/24 extended release duloxetine 60 mg capsule,delayed 60 mg PO BID #180 caps 05/02/24 release metformin 500 mg tablet,extended 500 mg PO DAILY #90 tabs 08/03/24 release 24 hr clonazepam 0.5 mg tablet 0.5 mg PO BID PRN anxiety #30 tabs 09/04/24 prazosin 1 mg capsule 3 mg (3 x 1 mg) PO QPM #90 caps 09/04/24 ciprofloxacin HCl 500 mg tablet 500 mg PO BID #20 tabs 10/02/24 (Cipro) hydrocodone 5 mg-acetaminophen 325 1 tab PO Q6H PRN pain #10 tabs 10/02/24 mg tablet levothyroxine 88 mcg tablet 88 mcg PO DAILY #90 tabs 10/02/24 metronidazole 500 mg tablet 500 mg PO Q8H 7 days #30 tabs 10/02/24 Allergies Allergy/AdvReac Type Severity Reaction Status Date / Time amoxicillin AdvReac Intermediate rash Verified 10/02/24 13:24 codeine AdvReac Intermediate Vomiting, Verified 10/02/24 13:24 passes out latex AdvReac Rash Verified 10/02/24 13:24 Patient History Medical History Acute lower GI bleeding Perimenopausal symptoms Concussion Left hip pain Right shoulder strain Chronic lower back pain Well adult exam Asthma Prediabetes Strain of tendon of left rotator cuff Hypothyroid Atypical nevi Breast lump Irregular menstrual cycle Cervical cancer screening Pain of right breast Fibromyalgia Sleep apnea Microscopic hematuria Bladder pain Migraine Dizziness Interstitial cystitis PTSD (post-traumatic stress disorder) Fibromyalgia PCOS (polycystic ovarian syndrome) Hyperlipidemia Hypertension Endometriosis Hypertelorism Anxiety Post traumatic stress disorder (PTSD) Depression Surgical History Hx of abdominal hysterectomy H/O left wrist surgery [place] teeth extracted History of tonsillectomy S/P lumpectomy, right breast Hx of laparoscopy (~2002) Family History Grandmother Cancer Hyperlipidemia Hypertension Grandfather Diabetes mellitus Mother Interstitial cystitis Migraines Thyroid disorder UTI (urinary tract infection) Meniere disease Fibromyalgia Endometriosis Social History marital status: household members: spouse and friend(s) Smoking Status: Never smoker alcohol intake: never caffeine: Yes Smoking Status: Never smoker alcohol intake frequency: 0-2 drinks per day Exam Initial Vital Signs Initial Vital Signs: Vital Signs Temperature 97.6 F 10/02/24 13:24 Pulse Rate 83 10/02/24 13:24 Respiratory Rate 17 10/02/24 13:24 Blood Pressure 134/78 10/02/24 13:24 Pulse Oximetry 96 10/02/24 13:24 Oxygen Delivery Method Room Air 10/02/24 13:24 GENERAL: Well-appearing, well-nourished and in no acute distress. HEENT: Head atraumatic,EOMI, pupils reactive, face symmetric, moist mucous membranes CARDIOVASCULAR: Regular rate and rhythm without murmurs, rubs or gallops. RESPIRATORY: Breath sounds equal bilaterally, no wheezes rales or rhonchi. ABDOMEN: Soft, tender lower abdomen no significant distention no guarding no real EXTREMITIES: Normal range of motion, no clubbing or edema. Neurovascularly intact NEUROLOGICAL: Alert and oriented x4.Normal gait and speech. Cranial nerves II through XII grossly intact SKIN: Warm, dry, no laceration, no petechiae, no rashes or lesions. Course Orders Ordered: Discontinued Medications Ciprofloxacin (Ciprofloxacin 250 Mg Tablet) 500 mg PO NOW ONE Stop: 10/02/24 19:00 Last Admin: 10/02/24 19:13 Dose: 500 mg Documented By: ES Ketorolac Tromethamine (Ketorolac 30 Mg/Ml Vial) 15 mg IV NOW ONE Stop: 10/02/24 17:35 Last Admin: 10/02/24 17:37 Dose: 15 mg Documented By: ES Metronidazole (Metronidazole 500 Mg Tablet) 500 mg PO NOW ONE Stop: 10/02/24 19:00 Last Admin: 10/02/24 19:12 Dose: 500 mg Documented By: ES Ondansetron HCl (Ondansetron 4 Mg/2 Ml Inj) 4 mg IV NOW PRN PRN Reason: Nausea And Vomiting Ondansetron HCl (Ondansetron 4 Mg Odt) 4 mg SL NOW PRN PRN Reason: Nausea And Vomiting Vital Signs Vital signs: Vital Signs - 8 hr 10/02/24 13:24 10/02/24 14:48 10/02/24 14:48 Temperature 97.6 F Pulse Rate 83 73 Respiratory Rate 17 Blood Pressure 134/78 135/73 Pulse Oximetry 96 97 Oxygen Delivery Method Room Air 10/02/24 15:00 10/02/24 15:00 10/02/24 15:30 Temperature Pulse Rate 70 Respiratory Rate Blood Pressure 146/81 H 136/69 Pulse Oximetry 97 Oxygen Delivery Method 10/02/24 15:30 10/02/24 16:22 10/02/24 16:23 Temperature Pulse Rate 66 81 Respiratory Rate Blood Pressure 136/79 Pulse Oximetry 97 96 Oxygen Delivery Method 10/02/24 16:23 10/02/24 16:30 10/02/24 16:30 Temperature Pulse Rate 76 72 Respiratory Rate Blood Pressure 137/81 Pulse Oximetry 96 95 Oxygen Delivery Method 10/02/24 17:00 10/02/24 17:01 10/02/24 17:01 Temperature Pulse Rate 86 76 Respiratory Rate Blood Pressure 136/64 Pulse Oximetry 96 96 Oxygen Delivery Method 10/02/24 17:30 10/02/24 17:30 Temperature Pulse Rate 71 Respiratory Rate Blood Pressure 139/77 Pulse Oximetry 96 Oxygen Delivery Method MDM - GI Bleed Lab Data 10/02/24 14:00 10/02/24 14:00 Labs: Lab Results 10/02/24 10/02/24 Range/Units 14:00 16:12 WBC 16.7 H (4.5-11.0) X10^3/uL RBC 4.76 (4.0-5.2) X10^6/uL Hgb 14.2 (12.0-16.0) g/dL Hct 41.9 (36-46) % MCV 88.0 (80-100) fL MCH 29.8 (26-34) PG MCHC 33.9 (30-36) % RDW 12.7 (11.6-14.8) % Plt Count 368 (150-400) X10^3/uL Neut % (Auto) 68.2 (50-75) % Lymph % (Auto) 21.8 L (25-40) % [place]gg % (Auto) 7.7 (3-14) % Eos % (Auto) 1.8 L (2-4) % Baso % (Auto) 0.5 (0-2) % Neut # (Auto) 31719 H (5930-2640) /uL Lymph # (Auto) 3700 (9249-1993) /uL Gregg # (Auto) 1300 H (0-900) /uL Eos # (Auto) 300 (0-450) /uL Baso # (Auto) 100 (0-100) /uL PT 11.8 (9.4-12.5) SECONDS INR 1.0 (0.9-1.3) APTT 31 (25.1-36.5) SECONDS Sodium 136 L (137-145) mmol/L Potassium 3.6 (3.4-5.1) mmol/L Chloride 102 (98-107) mmol/L Carbon Dioxide 23 (22-32) mmol/L BUN 13 (7-17) mg/dL Creatinine 0.83 (0.52-1.04) mg/dL Estimated GFR > 60 (>60) mL/min BUN/Creatinine Ratio 15.7 (6-22) Glucose 142 H (70-100) mg/dL Calcium 9.3 (8.4-10.2) mg/dL Total Bilirubin 0.5 (0.2-1.3) mg/dL AST 27 (14-36) IU/L ALT 25 (<35) IU/L Alkaline Phosphatase 52 (38-126) U/L Total Protein 7.5 (6.3-8.2) g/dL Albumin 4.5 (3.5-5.0) g/dL Globulin 3.0 (1.7-4.1) g/dL Albumin/Globulin Ratio 1.5 (1.0-2.8) Urine RBC 0-1/hpf (0-5/HPF) Urine WBC 0-1/hpf (0-5/HPF) Ur Squamous Epith Cells 5-10 /hpf H (0-5/HPF) Urine Bacteria Moderate (10-30) H (None) Urine Mucus 1+ H (Negative) Ur Culture Indicated? Specimen cultured Vol Urine Centrifuged 10ml (spun) Blood Type A Positive Antibody Screen Negative Urine Dip Bedside Urine Glucose Negative Bedside Urine Bilirubin - Negative Bedside Urine Ketone - Negative Urine Specific [place] 1.010 Bedside Urine Occult Blood ++ Bedside Urine pH 6.0 Bedside Urine Protein +/- 15 Bedside Urine Urobilinogen - Negative Bedside Urine Nitrite - Negative Bedside Urine Leukocytes + [address] scan - abdomen/pelvis: Radiologist's Impression: PROCEDURE: CT ABDOMEN PELVIS W CON INDICATIONS: ab pain bloody stool TECHNIQUE: After the administration of intravenous contrast, axial sections acquired from the lung bases to the pubic symphysis. Coronal and sagittal reformats were performed. For radiation dose reduction, the following was used: automated exposure control, adjustment of mA and/or kV according to patient size. COMPARISON: [facility], CT, CT ABDOMEN PELVIS W CON, 04/06/2023, 17:26. FINDINGS: Image quality: Diagnostic. Lower Chest: No significant findings. ABDOMEN: Liver: No solid mass. Mild hepatic steatosis. Gallbladder: No radiopaque gallstones or wall thickening. Biliary ducts: No biliary dilation. Pancreas: No ductal dilation. Spleen: Size is within normal limits. Adrenal Glands: No adrenal nodules. Kidneys and Ureters: No hydronephrosis. No solid mass. No complex renal cystic lesion which requires follow up. Stomach and Bowel: Small to moderate size hiatal hernia. There is no bowel obstruction. No gastric or small bowel wall thickening. Appendix is visualized and is within normal limits. Wall thickening involving distal transverse colon, splenic flexure and proximal to mid descending colon is seen with pericolonic fat stranding. No abscess collection. No extra luminal air. Peritoneum: No abnormal intraperitoneal fluid. No free air. Ventral Wall: No significant ventral hernia. Abdominal Nodes: No retroperitoneal or mesenteric adenopathy by size criteria. Vessels: Aorta and inferior vena cava are normal in size. PELVIS: Pelvic Organs: Unremarkable. Bladder: No bladder wall thickening, accounting for underdistention. Pelvic Nodes: No enlarged lymph nodes. Miscellaneous: No inguinal hernias are seen. Bones: No aggressive osseous abnormality. IMPRESSION: 1. Finding is concerning for diverticulitis versus colitis involving left splenic flexure, distal transverse colon and proximal descending colon. No abscess collection. No free fluid or free air. Normal appendix. No bowel obstruction. 2. No obstructing renal stones or hydronephrosis. Dictated by: Jeffery Mayen M.D. on 10/02/2024 at 18:03 Approved by: Jeffery Mayen M.D. on 10/02/2024 at 18:05 [facility] Narrative Medical decision making narrative: Patient 44-year-old she was pain rectal bleeding and abdominal pain. She is not on antiplatelet or anticoagulation medication. Blood pressure and vitals remain stable. Blood work is reviewed she does have leukocytosis 16.7 hemoglobin 14.2 hematocrit 41.9 Electrolytes within normal limits no ANA glucose 142 CT abdomen pelvis shows diverticulitis versus colitis in left splenic flexure distal transverse colon and proximal descending colon. No abscess no free air Patient was given Toradol Cipro and Flagyl Pain is slightly better. She has had no bloody bowel ED after numerous hours here. At this time we will treat with antibiotics as an outpatient pain control low-fiber diet and supportive care. Discharge Plan Departure Patient Disposition: Home Clinical Impression: Diverticulitis Instructions: DI for Diverticulitis Activity Restrictions/Additional Instructions: *You have been diagnosed with diverticulitis *What to do: At this time increase fluids as tolerated recommend electrolyte fluids preferably not a red color *Continue to take medications as directed Cipro 500 mg twice a day for 10 days Flagyl 500 mg 3 times a day for 10 days [place] 1 tablet every 6 hours if needed for severe pain *Follow up with your primary care provider in 2-3 days or call [phone] *Return to ER if you should have increasing abdominal pain worsening bloody stools dizziness lightheadedness [or] any new, worsening or concerning symptoms Prescriptions: New hydrocodone-acetaminophen 5-325 mg tablet 1 tab PO Q6H PRN (Reason: pain) Qty: 10 0RF metronidazole 500 mg tablet 500 mg PO Q8H 7 Days Qty: 30 0RF ciprofloxacin HCl [Cipro] 500 mg tablet 500 mg PO BID Qty: 20 0RF No Action lamotrigine 200 mg tablet 200 mg PO BID Qty: 180 3RF Rx Instructions: Take 200mg (1 tab) twice daily prazosin 1 mg capsule 3 mg PO QPM Qty: 90 2RF Rx Instructions: TAKE THREE CAPSULES BY MOUTH EVERY EVENING FOR NIGHTMARES FOR PTSD clonazepam 0.5 mg tablet 0.5 mg PO BID PRN (Reason: anxiety) Qty: 30 0RF propranolol 20 mg tablet 20 mg PO BID Qty: 180 3RF tizanidine 4 mg tablet 4 mg PO BEDTIME Qty: 90 3RF lovastatin 10 mg tablet 10 mg PO BEDTIME Qty: 90 1RF Rx Instructions: start taking 10 mg of lovastatin bupropion HCl 300 mg tablet extended release 24 hr 300 mg PO QAM Qty: 90 3RF duloxetine 60 mg capsule,delayed release(DR/EC) 60 mg PO BID Qty: 180 3RF metformin 500 mg tablet extended release 24 hr 500 mg PO DAILY Qty: 90 0RF levothyroxine 88 mcg tablet 88 mcg PO DAILY Qty: 90 1RF albuterol sulfate 90 mcg/actuation HFA aerosol inhaler 2 puff INHALATION Q4-6H PRN (Reason: shortness of breath or wheezing) Qty: 8.5 1RF Spirulina Powder 1 ea miscellaneous DAILY vitamin B complex Tablet 1 tab PO DAILY coenzyme Q10 100 mg capsule 100 mg PO DAILY lysine [L-Lysine] 500 mg Tablet 500 mg PO DAILY Qty: 0 Referrals: Gonzalez Chan, [Primary Care Provider] - Stand Alone Forms: Patient Portal/API/Survey
--- NOTE | 2024-10-02 17:34 | DI.CT.S_ITS ---
PROCEDURE: CT ABDOMEN PELVIS W CON INDICATIONS: ab pain bloody stool TECHNIQUE: After the administration of intravenous contrast, axial sections acquired from the lung bases to the pubic symphysis. Coronal and sagittal reformats were performed. For radiation dose reduction, the following was used: automated exposure control, adjustment of mA and/or kV according to patient size. COMPARISON: [facility], CT, CT ABDOMEN PELVIS W CON, 04/06/2023, 17:26. FINDINGS: Image quality: Diagnostic. Lower Chest: No significant findings. ABDOMEN: Liver: No solid mass. Mild hepatic steatosis. Gallbladder: No radiopaque gallstones or wall thickening. Biliary ducts: No biliary dilation. Pancreas: No ductal dilation. Spleen: Size is within normal limits. Adrenal Glands: No adrenal nodules. Kidneys and Ureters: No hydronephrosis. No solid mass. No complex renal cystic lesion which requires follow up. Stomach and Bowel: Small to moderate size hiatal hernia. There is no bowel obstruction. No gastric or small bowel wall thickening. Appendix is visualized and is within normal limits. Wall thickening involving distal transverse colon, splenic flexure and proximal to mid descending colon is seen with pericolonic fat stranding. No abscess collection. No extra luminal air. Peritoneum: No abnormal intraperitoneal fluid. No free air. Ventral Wall: No significant ventral hernia. Abdominal Nodes: No retroperitoneal or mesenteric adenopathy by size criteria. Vessels: Aorta and inferior vena cava are normal in size. PELVIS: Pelvic Organs: Unremarkable. Bladder: No bladder wall thickening, accounting for underdistention. Pelvic Nodes: No enlarged lymph nodes. Miscellaneous: No inguinal hernias are seen. Bones: No aggressive osseous abnormality. IMPRESSION: 1. Finding is concerning for diverticulitis versus colitis involving left splenic flexure, distal transverse colon and proximal descending colon. No abscess collection. No free fluid or free air. Normal appendix. No bowel obstruction. 2. No obstructing renal stones or hydronephrosis. Dictated by: Jeffery Mayen M.D. on 10/02/2024 at 18:03 Approved by: Jeffery Mayen M.D. on 10/02/2024 at 18:05
[2024-10-02] MEDS: KETOROLAC 30 MG/ML VIAL 15 MG IV (17:37)
[2024-10-02] MEDS: metroNIDAZOLE 500 MG TABLET PO (19:12)
[2024-10-02] MEDS: CIPROFLOXACIN 250 MG TABLET 500 MG PO (19:13)
--- NOTE | 2024-10-02 19:14 | DI.RAD.S_ITS ---
PROCEDURE: XR FOOT LT MIN 3V INDICATIONS: little toe injury TECHNIQUE: 3 views of the foot were acquired. COMPARISON: None. FINDINGS AND IMPRESSION: Nondisplaced fracture of the base of the 5th proximal phalanx. No dislocation. Likely chronic mild deformity of the 5th distal metatarsal No suspicious soft tissue calcifications. Dictated by: Rhys Sahu M.D. on 10/02/2024 at 19:57 Approved by: Rhys Sahu M.D. on 10/02/2024 at 19:58
== END 2024-10-02 20:02 | disposition home or self-care (01) ==
PROVIDERS: Emergency Provider Emergency Medicine; PCP Family Medicine
DX: K57.33 Diverticulitis of large intestine without perforation or abscess with bleeding (principal); R55 Syncope and collapse; S99.922A Unspecified injury of left foot, initial encounter; X58.XXXA Exposure to other specified factors, initial encounter
CPT/HCPCS: 36415; 73630; 74177; 80053; 81003; 81015; 85025; 85610; 85730; 86850; 86900; 86901; 87086; 96374; 99284; J1885; Q9967

== ENCOUNTER → 2024-10-31 11:02 | Outpatient (CLI) | payer OTHER, SELFPAY ==
[2021-12-25 11:04] VITALS: BMI 46.8
[2024-10-31 12:45] LABS: Add Manual Diff / Slide Review NO; Basophils Absolute Auto 0 /uL (0-100); Basophils Percent Auto 0.4 % (0-2); Eosinophils Absolute Auto 200 /uL (0-450); Eosinophils Percent Auto 3.2 % (2-4); Hematocrit 39.6 % (36-46); Hemoglobin 13.2 g/dL (12.0-16.0); Lymphocytes Absolute Auto 2300 /uL (1100-4500); Lymphocytes Percent Auto 31.8 % (25-40); Mean Corpuscular HGB Conc 33.3 % (30-36); Mean Corpuscular Hemoglobin 29.9 PG (26-34); Mean Corpuscular Volume 89.7 fL (80-100); Monocytes Absolute Auto 500 /uL (0-900); Monocytes Percent Auto 7.6 % (3-14); Neutrophils Absolute Auto 4100 /uL (1500-7000); Platelet Count 361 X10^3/uL (150-400); Red Blood Cell Count 4.41 X10^6/uL (4.0-5.2); Red Cell Distribution Width 13.2 % (11.6-14.8); White Blood Cell Count 7.2 X10^3/uL (4.5-11.0)
[2024-10-31 13:06] LABS: Hemoglobin A1C% w Est Avg Glu 5.2 % (4.0-6.0)
[2024-10-31 13:10] LABS: Alanine Aminotransferase 26 IU/L (<35); Albumin 4.5 g/dL (3.5-5.0); Albumin Globulin Ratio 1.8 (1.0-2.8); Alkaline Phosphatase 47 U/L (38-126); Aspartate Aminotransferase 25 IU/L (14-36); BUN Creatinine Ratio 12.5 (6-22); Bilirubin Total 0.6 mg/dL (0.2-1.3); Blood Urea Nitrogen 10 mg/dL (7-17); Calcium 9.3 mg/dL (8.4-10.2); Carbon Dioxide 24 mmol/L (22-32); Chloride 103 mmol/L (98-107); Cholesterol 232 mg/dL (140-199); Estimated Glomerular Filt Rate > 60 mL/min (>60); Globulin 2.5 g/dL (1.7-4.1); Glucose 95 mg/dL (70-99); HDL Cholesterol 68 mg/dL (40-60); HEMOLYSIS < 15 (0-50); LDL Cholesterol Calculated 135 mg/dL (<100); Potassium 4.4 mmol/L (3.4-5.1); Sodium 137 mmol/L (137-145); Triglycerides 146 mg/dL (35-150)
[2024-11-01 12:17] LABS: Free T4, Direct Thyroxine 1.49 ng/dL (0.78-2.19)
[2024-11-01 12:31] LABS: Thyroid Stimulating Hormone 0.711 uIU/mL (0.47-4.68)
== END ==
PROVIDERS: Specialist; PCP Family Medicine; Referring Provider Family Medicine; Visit Provider Family Medicine
DX: I10 Essential (primary) hypertension (principal); R73.03 Prediabetes; E78.5 Hyperlipidemia, unspecified; E03.9 Hypothyroidism, unspecified
CPT/HCPCS: 36415; 80053; 80061; 83036; 84439; 84443; 85025